=== PATIENT | male | born 1970 | race Caucasian/White ===

== ENCOUNTER 2017-10-26 10:40 | Emergency (ER) | payer MEDICARE, MEDICAID, SELFPAY ==
[2017-10-26 10:41] VITALS: BP 166/105; PULSE 79; RESP 18; TEMP 37.1; O2SAT 100; BMI 26.6
--- NOTE | 2017-10-26 10:53 | ED.VISSUMM ---
- ER Visit Summary Date of Service: 10/26/17 Chief Complaint: Abdominal pain History of Present Illness: The patient is a 47 M who presents with abdominal pain that began today. Patient states the pain is over the left side of his abdomen. Patient states the pain is sharp. Patient states the pain is worse with lying down and standing up. Patient states nothing seems to help the pain. Patient states he was eating today and spit up something green. Patient states he was eating Malay noodles at the time. Patient admits to some subjective chills. Patient denies any fevers. Patient also admits to a cough. Physical Examination: Vital signs are stable except for mildly elevated blood pressure 166/105. Patient is afebrile. Patient is in no acute distress. Oral mucosa is pink and moist. Neck is supple. Trachea is midline. There is no JVD. Heart was regular rate and rhythm. Lungs are clear and equal bilaterally. There is good respiratory effort noted. Abdomen is soft. There is some mild left upper quadrant tenderness. There is no rebound or guarding noted. Cranial nerves II through XII are intact. There are no focal motor or sensory deficits noted. The remaining physical exam is within normal limits. Test Results: CBC showed a mild leukocytosis of 13.6. Comprehensive metabolic profile was within normal limits. Urinalysis showed leukocyte esterase of 100 and positive nitrates. There is 0-5 white blood cells. Occult blood was 250 with 50-[address] scan of the flank was obtained. There is a 3 x 4 mm left proximal ureteral calculus noted. Emergency Department Course and Treatment: Patient was given IV fluids and Zofran here. Patient felt better on reevaluation. Patient was given a prescription for Bactrim. Patient was instructed to follow-up with his primary care physician in 3-5 days. Patient understood and was agreeable with the plan. All questions were answered. Disposition: Discharged home Impression: Left ureteral calculus This note was generated with [employer] dictation software. It may contain incorrect words, spelling, and punctuation that were not noted in review of the chart prior to signing ED Disposition - Plan for ED Patient: Disposition: Home or Assisted Living Chief Complaint: Other, Pain/Inj Diagnosis: Left ureteral calculus Instructions: ED Stone Renal W Colic, ED Strainer Urine Prescriptions: Smz/Tmp Ds [Bactrim Ds] 1 tab PO BID #6 tab Referrals: Bertin Feliz MD [Primary Care Provider] -
[2017-10-26 11:26] LABS: Bacteria 0 SEEN /hpf (None Seen); Mucous, Urine 0 SEEN /hpf (<or=2+); Squamous Epithelial Cells - UA 0 SEEN /hpf (0-5)
[2017-10-26] MEDS: 0.9% Normal Saline 1,000 ML 1000 ML IV (11:30)
[2017-10-26] MEDS: Ondansetron 4 MG/2 ML Vial IV (11:30)
[2017-10-26 11:31] LABS: Glucose, Dipstick Normal (Normal); Ketone-Dipstick 5 mg/dl (Negative); Leukocyte Esterase-Dipstick 100 /ul (Negative); Nitrite-Dipstick Positive (Negative); Occult Blood-Urine 250 /ul (Negative); Protein-Dipstick 100 mg/dl (Negative); Urine Clarity Sl. Cloudy (Clear); Urine Urobilinogen 4 mg/dl (Normal)
[2017-10-26 11:32] LABS: Color, Urine DARK YELLOW (Yellow); Urine Bilirubin Dipstick 1 mg/dL (Negative)
[2017-10-26 11:39] LABS: Calcium Oxalate Crystals Ur 1+ /hpf (<or=2+); Red Blood Cells-Urine 50-100 SEEN /hpf (0-5); White Blood Cells 0-5 SEEN /hpf (0-5)
[2017-10-26 11:49] LABS: Absolute Lymphocyte Count 0.84 X10^3/ul (0.83-4.51); Absolute Neutrophil Count 11.9 X10^3/uL (2.0-7.7); Basophil# 0.03 X10^3/uL; Basophil% 0.2 % (0-1); Eosinophil# 0.02 X10^3/uL; Eosinophils% 0.1 % (0-5); Hematocrit 47.5 % (40-54); Hemoglobin 16.7 g/dl (13.0-16.5); Lymphocyte # 0.84 X10^3/ul (4.0); Lymphocyte % 6.2 % (19-41); Mean Corp Hgb Conc 35.2 g/gl (32-36); Mean Corpuscular Hgb 31.9 pg (27.0-32.0); Mean Corpuscular Volume 90.8 fL (80-94); Monocyte% 5.9 % (0-10); Neutrophil # 11.87 X10^3/uL (2.7-7.7); Neutrophil % 87.5 % (47-70); POSITIVE COUNT NO; POSITIVE DIFFERENTIAL NO; POSITIVE MORPHOLOGY NO; Platelet Count 316 K/mm3 (150-450); RBC Distribution Width CV 12.9 % (11.6-14.6); RBC Distribution Width SD 42.6 fl (35.1-43.9); Red Blood Count 5.23 M/mm3 (4.6-6.2); White Blood Count 13.6 K/mm3 (4.4-11.0)
[2017-10-26 12:01] LABS: Anion Gap 11 (5-15); BUN 17 mg/dL (7-18); Calcium,Total 9.4 mg/dL (8.5-10.1); Chloride 103 mmol/L (98-107); Creatinine, Serum 1.21 mg/dL (0.70-1.30); EST Glomerular Filtration Rate 69 mL/min (>60); Est Glom Filt Rate - Afr Amer 83 mL/min (>60); Estimated Creatinine Clearance 62.05 ml/min; Glucose 107 mg/dL (74-106); Potassium 3.8 mmol/L (3.5-5.1); Sodium Level 136 mmol/L (136-145)
[2017-10-26 15:11] VITALS: BP 135/80; PULSE 78; RESP 16; O2SAT 100
== END 2017-10-26 15:12 | disposition home or self-care (01) ==
PROVIDERS: Emergency Provider Emergency Medicine; Family Provider Internal Medicine; PCP Internal Medicine
DX: N20.1 Calculus of ureter (principal); R03.0 Elevated blood-pressure reading, without diagnosis of hypertension; R05 Cough; F17.220 Nicotine dependence, chewing tobacco, uncomplicated; Z79.899 Other long term (current) drug therapy
CPT/HCPCS: 74176; 80048; 81001; 85025; 96361; 96374; 99283; J7030; J2405

== ENCOUNTER 2017-11-15 10:20 | Emergency (ER) | payer MEDICARE, MEDICAID, SELFPAY ==
[2017-11-15 10:21] VITALS: BP 154/95; PULSE 73; RESP 20; TEMP 36.6; O2SAT 99; BMI 26.7
--- NOTE | 2017-11-15 10:50 | ED.VISSUMM ---
- ER Visit Summary Date of Service: 11/15/17 Chief Complaint: Left flank pain History of Present Illness: The patient is a 47 M [place] 3 weeks ago was diagnosed a left ureteral calculi 4 mm. He has had prior kidney stones before. He states he has left flank discomfort. Denies vomiting. Denies diarrhea or fever. Is able to urinate. Denies any abdominal trauma. Physical Examination: Well-appearing middle-age male. Vital signs are stable. Afebrile. H EENT exam unremarkable. Moist wheeze membranes. Neck nontender. Lungs clear to auscultation bilaterally. Heart regular rhythm no murmur. Abdomen soft. Nondistended normal bowel sounds. No signs of obstruction. Really no significant tenderness on the right or left sides. No McBurney's point or Cortez's sign tenderness. No signs of trauma. Normal bowel sounds. He is moving all 4 extremities. Neurovascularly intact. Calves are nontender without edema. Back is nontender. Neurologically is awake alert moving all 4 extremities. No focal deficits. Test Results: UA normal. Small blood on the macro. Chemistries normal normal renal function. Previously the patient had a CT flank done 3 weeks ago it showed a left 4 mm stone. Emergency Department Course and Treatment: Patient currently did not want anything for pain or nausea. Repeat exam he is doing well 1403. Abdomen is benign. Treatment Plan: Discharge home. Follow-up with his primary care physician Dr. Bertin Feliz thank you Disposition: Discharge Impression: Acute left flank pain of uncertain etiology Status post recent diagnosis of a left 4 mm ureteral calculus This note was generated with Real [employer] dictation software. It may contain incorrect words, spelling, and punctuation that were not noted in review of the chart prior to signing ED Disposition - Plan for ED Patient: Chief Complaint: Abd Pain Referrals: Bertin Feliz MD [Primary Care Provider] -
[2017-11-15 11:50] LABS: Anion Gap 8 (5-15); BUN 15 mg/dL (7-18); BUN/Creat Ratio 17.5 RATIO (10-20); Calcium,Total 8.9 mg/dL (8.5-10.1); Chloride 104 mmol/L (98-107); Creatinine, Serum 0.86 mg/dL (0.70-1.30); EST Glomerular Filtration Rate 102 mL/min (>60); Est Glom Filt Rate - Afr Amer 124 mL/min (>60); Glucose 87 mg/dL (74-106); Potassium 3.8 mmol/L (3.5-5.1); Sodium Level 136 mmol/L (136-145)
[2017-11-15 12:03] LABS: Mucous, Urine 0 SEEN /hpf (<or=2+); Squamous Epithelial Cells - UA 0 SEEN /hpf (0-5); White Blood Cells 0 SEEN /hpf (0-5)
[2017-11-15 12:06] LABS: Color, Urine Yellow (Yellow); Glucose, Dipstick Normal (Normal); Ketone-Dipstick Negative (Negative); Leukocyte Esterase-Dipstick Negative /ul (Negative); Nitrite-Dipstick Negative (Negative); Occult Blood-Urine 250 /ul (Negative); Protein-Dipstick 15 mg/dl (Negative); Urine Bilirubin Dipstick Negative (Negative); Urine Clarity Sl. Cloudy (Clear); Urine Urobilinogen Normal (Normal); Urine pH 6.5 (5.0 - 8.0)
[2017-11-15 12:11] LABS: Bacteria 1+ /hpf (None Seen); Red Blood Cells-Urine 0-5 SEEN /hpf (0-5)
[2017-11-15 13:00] VITALS: PULSE 76; RESP 16; O2SAT 100
--- NOTE | 2017-11-15 14:06 | ED.DEP ---
ED Disposition - Plan for ED Patient: Disposition: Home or Assisted Living Chief Complaint: Abd Pain Instructions: ED Abdominal Pain Unkn Cause Referrals: Bertin Feliz MD [Primary Care Provider] - 3-5 Days if not improving Additional Instructions: Plenty of fluids and rest. Follow-up with your primary care physician if not improving. Return to ER if feeling worse.
[2017-11-15 14:13] VITALS: BP 148/93; PULSE 78; RESP 16; O2SAT 100
== END 2017-11-15 14:14 | disposition home or self-care (01) ==
PROVIDERS: Emergency Provider Emergency Medicine; Family Provider Internal Medicine; PCP Internal Medicine
DX: R10.9 Unspecified abdominal pain (principal); Z79.899 Other long term (current) drug therapy; Z87.442 Personal history of urinary calculi
CPT/HCPCS: 80048; 81001; 99283; A4216

== ENCOUNTER 2020-03-13 07:28 | Emergency (ER) | payer MEDICARE, MEDICAID, SELFPAY ==
--- NOTE | 2020-03-13 07:29 | CT_ITS ---
STUDY: CT ABDOMEN AND PELVIS WITH CONTRAST REASON FOR EXAM: Male, 49 years old. Right sided abdomen pain and diarrhea, elevated WBC. RADIATION DOSAGE (If Supplied By Facility): CTDIvol = ( 12.80 ) mGy, DLP = ( 650.57 ) mGycm TECHNIQUE: Transaxial images were obtained from the dome of the diaphragm to the symphysis pubis without oral contrast. IV 100mL Isovue-300 was administered. Sagittal and coronal images were reconstructed. Individualized dose optimization techniques were used for this CT. COMPARISON: Comparison is made with prior examination dated 10/26/2017 FINDINGS: The visualized lung bases are unremarkable. The visualized portions of the heart are within normal limits. There is decreased attenuation of the liver consistent with steatosis. Findings suggestive of either tiny gallstones or sludge along the dependent portion of the gallbladder. Normal spleen. Normal pancreas. Normal bilateral adrenal glands. Mild degree of right hydronephrosis and right hydroureter due to a 2 mm calculus at the right ureterovesical junction as it enters the urinary bladder. Stable 1 cm cyst in the midportion of the left. There is a small hiatal hernia. Normal small intestine. Mucosal thickening of the rectosigmoid colon. The appendix is visualized and appears normal. Normal abdominal aorta. Normal inferior vena cava. Normal retroperitoneum. Normal urinary bladder. There is a left-sided inguinal hernia containing adipose tissue. Small right hydrocele. Normal osseous structures. CT/Abdomen/Pelvis W IV Cont ONLY IMPRESSION: 2 mm calculus at the right ureterovesical junction as it enters the urinary bladder causing a mild degree of right hydronephrosis and right hydroureter. Stable left renal cyst. Fatty infiltration of the liver. Findings suggestive of mucosal thickening of the rectosigmoid colon. Electronically Signed: Sanjeev Cao MD at 8:37 EST , Service support ,
[2020-03-13 07:30] VITALS: BP 179/106; PULSE 85; RESP 20; TEMP 36.4; O2SAT 98; BMI 28.9
--- NOTE | 2020-03-13 07:33 | ED.VIS.GEN ---
History of Present Illness Chief Complaint: Abd Pain Informant: Patient Onset: Today Context: Gradual Onset Timing: Continuous Current Severity: Moderate Maximum Severity: Moderate Narrative: The patient is an otherwise healthy 49-year-old male medical history significant for anxiety and prior appendectomy who presents to the emergency department abdominal pain. Patient states he woke this morning with pain. He states it is mostly on the right lateral aspect of his abdomen. Has been nauseated with one episode of vomiting. He is also had multiple bouts of loose watery diarrhea. He is unsure if he has had cough. He denies fever but does admit to some chills. He denies any recent sick contacts or travel. He denies any urinary symptoms. Prior similar symptoms: No Recent Illness/Hospitalization: No Past Medical History - Allergies and Home Meds Allergies/Adverse Reactions: Allergies No Known Allergies Allergy (Verified 03/13/20 07:32) Primary Care Physician: Bertin Feliz MD [Primary Care Provider] - Prior records reviewed: Yes Past Medical History: - - Anxiety Surgical History: appendectomy Smoking Status: Never smoker Review of Systems General: Denies: Chills, Fever, Sweats Eyes: Denies: Visual changes - bilaterally, Diplopia ENT: Denies: Rhinorrhea, Sore throat Cardiovascular: Denies: Chest pain, Palpitations Respiratory: Denies: Dyspnea, Cough, Dyspnea on exertion Gastrointestinal: Reports: Abdominal pain, Nausea, Diarrhea. Denies: Vomiting, Melena, Hematochezia Genitourinary: Denies: Dysuria, Hematuria, Frequency Musculoskeletal: Denies: Back pain, Extremity Pain Skin: Denies: Rash, Wounds Neurological: Denies: Headache, Weakness, Numbness Physical Exam Vital Signs/Narrative: Vital Signs Temp Pulse Resp BP Pulse Ox 03/13/20 07:30 97.6 F L 85 20 H 179/106 H 98 Inital Vital Signs reviewed: Yes General: Well nourished, Well developed, No Acute Distress Head: Normocephalic, Atraumatic Eyes: Perrl, EOMI ENT: Moist mucous membranes, No rhinorrhea Neck: Supple, Nontender Cardiovascular: Regular rate, Regular rhythm, No murmurs Respiratory: No distress, CTA bilaterally, Chest nontender Abdomen: Soft, Nondistended, Normal bowel sounds, Tender. Negative for: Guarding, Rebound tenderness Back: Nontender, Normal Inspection Extremities: Nontender, No edema Skin: Normal color, No rash Neurological: Alert, Oriented x3, Cranial nerves II-XII grossly intact, Normal Strength, Normal Sensation Psychological: Normal affect, Normal Mood Diagnostic/Tx/Re-eval Clinical Impression(s) from Imaging Studies Abdomen/Pelvis CT 03/13/20 07:29 IMPRESSION: 2 mm calculus at the right ureterovesical junction as it enters the urinary bladder causing a mild degree of right hydronephrosis and right hydroureter. Stable left renal cyst. Fatty infiltration of the liver. Findings suggestive of mucosal thickening of the rectosigmoid colon. Electronically Signed: Sanjeev Cao MD at 8:37 EST , Service support , Abnormal Lab Results 03/13/20 03/13/20 07:36 07:36 WBC 16.3 H RBC 5.23 Hgb 16.0 Hct 46.1 MCV 88.1 MCH 30.6 MCHC 34.7 RDW Std Deviation 40.6 RDW Coeff of Inez 12.4 Plt Count 354 MPV 8.9 Immature Gran % (Auto) 0.600 Neut % (Auto) 84.9 H Lymph % (Auto) 8.6 L [place] % (Auto) 5.2 Eos % (Auto) 0.2 Baso % (Auto) 0.5 Absolute Neuts (auto) 13.9 H Absolute Lymphs (auto) 1.41 Nucleated RBC % 0 Sodium 138 Potassium 3.2 L Chloride 109 H Carbon Dioxide 21.0 Anion Gap 8 BUN 18 Creatinine 1.21 Estim Creat Clear Calc 60.74 Est GFR (MDRD) Af Amer 82 Est GFR (MDRD) Non-Af 68 BUN/Creatinine Ratio 14.9 Glucose 142 H Calcium 9.0 Total Bilirubin 0.60 AST 18 ALT 48 Alkaline Phosphatase 156 H Total Protein 8.3 H Albumin 4.2 Globulin 4.1 Albumin/Globulin Ratio 1.0 Lipase 128 - Medical Decision Making The patient presents with diarrhea and abdominal pain. It is hard to reproduce his pain on examination, but it is in the right side. He does have history of kidney stone also. IV was established. Patient was given analgesics and antiemetics. On reevaluation, he is resting comfortably. Screening labs do show leukocytosis but otherwise unremarkable. Patient underwent CT imaging. There is a 2 mm stone at the UVJ almost into the bladder. There is mild hydronephrosis. There is also some mucosal thickening of the rectosigmoid, and with the patient's diarrhea, I am going to treat him. He will be given a short course of analgesics, antiemetics, and antibiotics. He will also be given outpatient urology follow-up. Impression 1. 2 mm right-sided kidney stone 2. Colitis ED Disposition - Plan for ED Patient: Instructions: ED Kidney Stone w/ Colic, ED Diarrhea, Bacterial (Adult) Prescriptions: Ciprofloxacin [Cipro] 500 mg PO BID #14 tab Prescription Printed metroNIDAZOLE [Flagyl] 500 mg PO Q8H #21 tab Prescription Printed Hydrocodone Bitart/Apap 5-325 [[place] 5MG-325MG] 1 tab PO Q6H PRN PRN 3 Days #10 tab PRN Reason: Pain Prescription Printed Ondansetron [Zofran Odt] 4 mg PO Q8H PRN PRN #10 tab PRN Reason: Nausea Prescription Printed Referrals: Bertin Feliz MD [Primary Care Provider] -
[2020-03-13] MEDS: 0.9% Normal Saline 1,000 ML 1000 ML IV (07:44)
[2020-03-13] MEDS: Ondansetron 4 MG/2 ML Vial IV (07:45)
[2020-03-13] MEDS: Morphine 4 MG/ML Syringe IV (07:46)
[2020-03-13 07:50] LABS: Absolute Lymphocyte Count 1.41 X10^3/uL (0.83-4.51); Absolute Neutrophil Count 13.9 X10^3/uL (2.0-7.7); Basophil# 0.08 X10^3/uL; Basophil% 0.5 % (0-1); Eosinophil# 0.04 X10^3/uL; Eosinophils% 0.2 % (0-5); Hematocrit 46.1 % (40-54); Lymphocyte # 1.41 X10^3/ul (4.0); Lymphocyte % 8.6 % (19-41); Mean Corp Hgb Conc 34.7 g/dL (32-36); Mean Corpuscular Hgb 30.6 pg (27.0-32.0); Mean Corpuscular Volume 88.1 fL (80-94); Mean Platelet Vol. 8.9 fl (6.2-12.0); Monocyte# 0.85 X10^3/uL; Monocyte% 5.2 % (0-10); NRBC Flagged by Analyzer 0 % (0-5); Neutrophil # 13.87 X10^3/uL (2.7-7.7); Neutrophil % 84.9 % (47-70); Platelet Count 354 K/mm3 (150-450); RBC Distribution Width CV 12.4 % (11.6-14.6); RBC Distribution Width SD 40.6 fl (35.1-43.9); Red Blood Count 5.23 M/mm3 (4.6-6.2); White Blood Count 16.3 K/mm3 (4.4-11.0)
[2020-03-13 08:05] LABS: AST(SGOT) 18 U/L (15-37); Alanine Aminotransfer ALT/SGPT 48 U/L (16-61); Albumin, Serum 4.2 g/dL (3.2-5.0); Alkaline Phosphatase 156 U/L (45-117); Anion Gap 8 (5-15); BUN 18 mg/dL (7-18); BUN/Creat Ratio 14.9 RATIO (10-20); Chloride 109 mmol/L (98-107); Creatinine, Serum 1.21 mg/dL (0.70-1.30); EST Glomerular Filtration Rate 68 mL/min (>60); Est Glom Filt Rate - Afr Amer 82 mL/min (>60); Estimated Creatinine Clearance 60.74 ml/min; Globulin 4.1 g/dL (2.2-4.2); Glucose 142 mg/dL (74-106); Lipase 128 U/L (73-393); Potassium 3.2 mmol/L (3.5-5.1); Protein, Total 8.3 g/dL (6.4-8.2); Sodium Level 138 mmol/L (136-145)
[2020-03-13 09:03] VITALS: BP 184/90; PULSE 84; RESP 20; O2SAT 97
[2020-03-13 09:05] LABS: Color, Urine Straw (Yellow); Glucose, Dipstick Normal (Normal); Ketone-Dipstick Negative (Negative); Leukocyte Esterase-Dipstick 25 /ul (Negative); Nitrite-Dipstick Negative (Negative); Occult Blood-Urine 250 /ul (Negative); Protein-Dipstick Negative (Negative); Specific Gravity, Urine 1.005 (1.002-1.030); Urine Bilirubin Dipstick Negative (Negative); Urine Clarity Sl. Cloudy (Clear); Urine Urobilinogen Normal (Normal)
[2020-03-13 09:11] LABS: Red Blood Cells-Urine 25-50 SEEN /hpf (0-5); Squamous Epithelial Cells - UA 0-5 SEEN /hpf (0-5); White Blood Cells 0-5 SEEN /hpf (0-5)
[2020-03-13 09:12] LABS: Bacteria 1+ /hpf (None Seen); Mucous, Urine RARE /hpf (<or=2+)
== END 2020-03-13 09:37 | disposition home or self-care (01) ==
PROVIDERS: Emergency Provider Emergency Medicine; PCP Internal Medicine
DX: N13.2 Hydronephrosis with renal and ureteral calculous obstruction (principal); K52.9 Noninfective gastroenteritis and colitis, unspecified; F41.9 Anxiety disorder, unspecified; Z79.899 Other long term (current) drug therapy
CPT/HCPCS: 74177; 80053; 81001; 83690; 85025; 96361; 96374; 96375; 99285; J7030; Q9967; A4216; J2405

== ENCOUNTER 2021-09-22 07:51 | Inpatient (IN) | payer MEDICARE, MEDICAID, SELFPAY ==
[2021-09-22] VITALS (12 sets, daily range): BP systolic 116–165; BP diastolic 87–99; PULSE 71–99; RESP 15–25; TEMP 36.3–36.9; O2SAT 96–100; BMI 28.9; BMI 28.3
--- NOTE | 2021-09-22 07:58 | NURSING ---
NO OLD EKGS
--- NOTE | 2021-09-22 07:59 | EDS_ITS ---
HPI History of Present Illness Chief Complaint: Chest Pain Narrative Narrative: 51-year-old male presenting with chest pain which has been constant for 3 hours. He describes it as sharp and stabbing. He is not having any shortness of breath. He denies any cardiac history. He is a non-smoker. He does not know his family history. Patient has no DVT/PE risk factors or history. No fever, chills, cough. He rates his pain as 9 of 10. [facility] Medical History Anxiety Hyperlipemia Home Medications atorvastatin 10 mg tablet 10 mg PO QHS 10/11/14 [History Last Taken Unknown] cetirizine 10 mg capsule (Zyrtec) 10 mg PO DAILY 10/11/14 [History Last Taken Unknown] mometasone 50 mcg/actuation nasal spray (Nasonex) 1 spray DAILY 10/11/14 [History Last Taken Unknown] multivitamin,ht-vtjp-obzoanjk 27 mg-0.4 mg tablet (Therems-M) 1 tab PO DAILY 10/11/14 [History Last Taken Unknown] azelastine 137 mcg (0.1 %) nasal spray aerosol 2 spray BID 11/15/17 [History Last Taken Unknown] omeprazole 20 mg capsule,delayed release 20 mg PO DAILY 11/15/17 [History Last Taken Unknown] sertraline 100 mg tablet 100 mg PO DAILY 09/22/21 [History Last Taken Unknown] Allergy/AdvReac Type Severity Reaction Status Date / Time No Known Allergies Allergy Verified 09/22/21 07:58 Social History Smoking Status: Current every day smoker tobacco type: smokeless tobacco ROS ROS ED Constitutional Constitutional ED: Denies chills or fever(s) Eyes Eyes: Denies blurry vision or change in vision ENT ENT ED: Denies rhinorrhea or sore throat Cardiovascular Cardiovascular: Reports as per HPI Respiratory/Chest Respiratory/Chest: Denies cough, dyspnea or dyspnea on exertion Gastrointestinal Gastrointestinal: Denies abdominal pain, constipation, diarrhea, melena, nausea or vomiting Genitourinary Genitourinary ED: Denies dysuria Musculoskeletal Musculoskeletal: Denies arthralgias or back pain Integumentary Denies abscess or Abrasions Neurologic Neurologic: Denies headache(s) or paresthesias Psychiatric Psychiatric: Reports anxiety; Denies depression EXAM Physical Exam Const Vital Signs: 09/22/21 07:53 09/22/21 07:59 09/22/21 08:08 Temperature 97.4 F L Temperature Source Temporal Pulse Rate 75 Respiratory Rate 15 Respiratory Effort Normal Blood Pressure 151/96 H Blood Pressure Mean 114 Pulse Ox 96 Oxygen Delivery Method Room Air Room Air 09/22/21 09:04 09/22/21 10:08 09/22/21 11:16 Temperature Temperature Source Pulse Rate 74 99 82 Respiratory Rate 24 H 25 H 17 Respiratory Effort Blood Pressure 165/95 H 163/97 H 131/99 H Blood Pressure Mean 118 119 109 Pulse Ox 100 99 98 Oxygen Delivery Method Room Air Room Air Room Air Positive well nourished General Appearance ED: NAD; Negative for pallor HEENT Reports moist mucous membranes normocephalic and atraumatic Eyes PERRL and EOMs intact bilaterally General Eye ED: Negative for pale conjunctiva or scleral icterus Resp normal respiratory effort and clear to auscultation bilaterally Effort and Inspection: Negative for respiratory distress Auscultation: Negative for rales, rhonchi or wheezes Cardio regular rate and regular rhythm GI normal to inspection, nondistended, normoactive bowel sounds Extremity normal to inspection General Extremety ED: Negative for edema or tenderness General Extremity: Negative for edema Neuro oriented x3, CN's II-XII intact bilaterally and no sensory deficits noted Sensorium / Orientation: awake and alert Motor Exam: strength 5/5 throughout Psych mental status grossly normal Mood & Affect: anxious Skin no rashes or lesions noted General Skin Exam: Negative for jaundice or pallor Heart Score History: Slightly/Non-Suspicious ECG: Normal Age: >45 - <65 years Risk Factors: 1 or 2 Risk Factors Score: 2 MDM MDM MDM Narrative Medical decision making narrative: 51-year-old male presenting with sharp retrosternal chest pain which is nonradiating for the last 3 hours. He is not having shortness of breath. He does not have a cardiac history. HEART score would be 2 at this point. He is a non-smoker. Although he rates his pain a 9/10 he declines analgesia. His vital signs are stable and he is afebrile. He is PERC negative. After discussion the patient reports that his cat did last night and he is anxious and sad. Patient's blood pressure was initially elevated 151/96. This is improved to 131/99 without any treatment. EKG on my interpretation shows a sinus rhythm with a ventricular rate of 75 bpm without sign of acute ischemic change. Chest x-ray on my interpretation shows no acute cardiopulmonary process and radiologist agree. Patient is PERC negative. Patient's high-sensitivity troponin came back initially at 10 and at 2 hours this was elevated at 185. Patient already received 324 mg of aspirin prior to arrival. Patient was discussed with the hospitalist for admission. He is transferred to the floor in stable condition. Impression: 1. Chest pain 2. Elevated Troponin 3. History of hyperlipidemia 4. Elevated blood pressure 5. Anxiety Lab Data Attestation: I reviewed the patient's lab results. Labs: Laboratory Results - last 24 hr 09/22/21 09/22/21 09/22/21 07:44 07:44 08:41 WBC 9.4 RBC 5.31 Hgb 16.4 Hct 49.2 MCV 92.7 MCH 30.9 MCHC 33.3 RDW Std Deviation 43.7 RDW Coeff of Inez 12.8 Plt Count 364 MPV 9.4 Immature Gran % (Auto) 0.300 Neut % (Auto) 48.4 Lymph % (Auto) 38.0 [place] % (Auto) 10.8 H Eos % (Auto) 1.4 Baso % (Auto) 1.1 H Absolute Neuts (auto) 4.5 Absolute Lymphs (auto) 3.56 Nucleated RBC % 0 Sodium Cancelled 137 Potassium Cancelled 4.1 Chloride Cancelled 107 Carbon Dioxide Cancelled 23.0 Anion Gap Cancelled 7 BUN Cancelled 18 Creatinine Cancelled 1.01 Estim Creat Clear Calc Cancelled 71.20 Est GFR (MDRD) Af Amer Cancelled 101 Est GFR (MDRD) Non-Af Cancelled 83 BUN/Creatinine Ratio Cancelled 17.8 Glucose Cancelled 128 H Calcium Cancelled 9.3 Troponin I High Sens Cancelled 09/22/21 11:15 WBC RBC Hgb Hct MCV MCH MCHC RDW Std Deviation RDW Coeff of Inez Plt Count MPV Immature Gran % (Auto) Neut % (Auto) Lymph % (Auto) [place] % (Auto) Eos % (Auto) Baso % (Auto) Absolute Neuts (auto) Absolute Lymphs (auto) Nucleated RBC % Sodium Potassium Chloride Carbon Dioxide Anion Gap BUN Creatinine Estim Creat Clear Calc Est GFR (MDRD) Af Amer Est GFR (MDRD) Non-Af BUN/Creatinine Ratio Glucose Calcium Troponin I High Sens 185 H* Radiography Diagnostic Testing: Clinical Impression(s) from Imaging Studies Chest X-Ray 09/22/21 08:25 IMPRESSION: Normal chest radiograph. Electronically Signed: Dominic Stanley MD at 8:40 EDT , Discharge Plan Triage Chief Complaint: Chest Pain ED Provider: Cipriano Castro Dx/Rx/DC Orders Primary Care Provider: Bertin Feliz
--- NOTE | 2021-09-22 08:03 | EKG12_ITS ---
Test Reason : CP Blood Pressure : / mmHG Vent. Rate : 075 BPM Atrial Rate : 075 BPM P-R Int : 176 ms QRS Dur : 082 ms QT Int : 390 ms P-R-T Axes : -07 -79 036 degrees QTc Int : 435 ms Normal sinus rhythm Left anterior fascicular block Inferior infarct , age undetermined Abnormal ECG Confirmed by NISREEN URIBE, APRIL ([id number]), newspaper copy editor ALEXA BUTLER ([id number]) on 09/24/2021 1:05:11 PM Referred By: YESSY Confirmed By:APRIL NIELSON MD
[2021-09-22 08:17] LABS: Absolute Lymphocyte Count 3.56 X10^3/uL (0.83-4.51); Absolute Neutrophil Count 4.5 X10^3/uL (2.0-7.7); Basophil% 1.1 % (0-1); Eosinophil# 0.13 X10^3/uL; Eosinophils% 1.4 % (0-5); Hematocrit 49.2 % (40-54); Hemoglobin 16.4 g/dL (13.0-16.5); Lymphocyte # 3.56 X10^3/ul (0.83-4.51); Mean Corp Hgb Conc 33.3 g/dL (32-36); Mean Corpuscular Hgb 30.9 pg (27.0-32.0); Mean Corpuscular Volume 92.7 fL (80-94); Mean Platelet Vol. 9.4 fl (6.2-12.0); Monocyte# 1.01 X10^3/uL; Monocyte% 10.8 % (0-10); NRBC Flagged by Analyzer 0 % (0-5); Neutrophil # 4.53 X10^3/uL (2.7-7.7); Neutrophil % 48.4 % (47-70); Platelet Count 364 K/mm3 (150-450); RBC Distribution Width CV 12.8 % (11.6-14.6); RBC Distribution Width SD 43.7 fl (35.1-43.9); Red Blood Count 5.31 M/mm3 (4.6-6.2); White Blood Count 9.4 K/mm3 (4.4-11.0)
[2021-09-22] MEDS: Morphine 4 MG/ML Syringe IV (08:17)
[2021-09-22] MEDS: Ondansetron 4 MG/2 ML Vial IV (08:18)
--- NOTE | 2021-09-22 08:25 | RAD_ITS ---
EXAM: XR CHEST, 1 VIEW CLINICAL INDICATION: chest pain TECHNIQUE: Frontal view of the chest. This report was created using [employer] report generation technology. COMPARISON: None. FINDINGS: LUNGS AND PLEURAL SPACES: The lungs are clear. No consolidation or edema. No pneumothorax. No effusion. HEART: Unremarkable. Cardiac silhouette not enlarged. MEDIASTINUM: Central airways and mediastinal contour are unremarkable. BONES/JOINTS: Unremarkable. SOFT TISSUES: Unremarkable. RAD/Chest 1 View (Portable) IMPRESSION: Normal chest radiograph. Electronically Signed: Dominic Stanley MD at 8:40 EDT ,
--- NOTE | 2021-09-22 08:26 | NURSING ---
chemistries hemolized
[2021-09-22 09:16] LABS: Anion Gap 7 (5-15); BUN 18 mg/dL (7-18); BUN/Creat Ratio 17.8 RATIO (10-20); Calcium,Total 9.3 mg/dL (8.5-10.1); Chloride 107 mmol/L (98-107); Creatinine, Serum 1.01 mg/dL (0.70-1.30); EST Glomerular Filtration Rate 83 mL/min (>60); Est Glom Filt Rate - Afr Amer 101 mL/min (>60); Glucose 128 mg/dL (74-106); Potassium 4.1 mmol/L (3.5-5.1); Sodium Level 137 mmol/L (136-145); Troponin-I HS (w/2H Reflex) 10 pg/mL (3.0-78.0)
[2021-09-22 10:42] LABS: Reflex Troponin-HS? (from REC) Y
--- NOTE | 2021-09-22 11:31 | NURSING ---
[place] contacted per pt request. She advised his cat yesterday and he has extreme anxiety. She advised she will pick him up when he is ready. Contact number [phone].
[2021-09-22 11:56] LABS: Troponin-I HS 185 pg/mL (3.0-78.0)
--- NOTE | 2021-09-22 12:01 | NURSING ---
DR SOLIMAN FOR DR VALENZUELA
--- NOTE | 2021-09-22 12:03 | PCM.HP.STD ---
[facility] - General General Date of Admission: 09/22/21 Date of Service: 09/22/21 Chief Complaint: Sudden onset of chest pain about 5 AM lasted for about 3 hours. HPI Narrative CATHERINE SCHWARTZ, is a 51 M with history of severe anxiety disorder came to ED with sudden onset of chest pain about 5 AM today. It is constant in nature, midsternal, localized, 10/10 at onset but decreased over next 3 hours. Chest pain resolved when patient came to ED and was given medication. Patient said he has severe anxiety attack as his pet, cat yesterday. Patient also has mild shivering and tremors of hand. Denies associated shortness of breath, dizziness, vertigo, nausea, diaphoresis or vomiting. No fever or chills, URI or abdominal pain or burning micturition/dysuria. In ED, twelve-lead EKG individually reviewed normal sinus rhythm LAFB, T #V1 to V2 at 75 bpm. QTc 435 ms. Chest x-ray done today reviewed and looks normal and gave me the report. Labs reviewed. Denies family history of coronary artery disease or other cardiac disorder in first-degree family relatives. [facility] Medical History Anxiety Hyperlipemia Home Medications atorvastatin 10 mg tablet 10 mg PO QHS 10/11/14 [History Last Taken Unknown] cetirizine 10 mg capsule (Zyrtec) 10 mg PO DAILY 10/11/14 [History Last Taken Unknown] mometasone 50 mcg/actuation nasal spray (Nasonex) 1 spray DAILY 10/11/14 [History Last Taken Unknown] multivitamin,xg-xari-bscytupp 27 mg-0.4 mg tablet (Therems-M) 1 tab PO DAILY 10/11/14 [History Last Taken Unknown] azelastine 137 mcg (0.1 %) nasal spray aerosol 2 spray BID 11/15/17 [History Last Taken Unknown] omeprazole 20 mg capsule,delayed release 20 mg PO DAILY 11/15/17 [History Last Taken Unknown] sertraline 100 mg tablet 100 mg PO DAILY 09/22/21 [History Last Taken Unknown] Allergy/AdvReac Type Severity Reaction Status Date / Time No Known Allergies Allergy Verified 09/22/21 07:58 Social History Smoking Status: Current every day smoker tobacco type: smokeless tobacco ROS ROS Narrative Constitutional: Mild shaking and tremors. Looks anxious. No fever HEENT: Reports systems reviewed and no addt'l complaints, except as documented Respiratory/Chest: No shortness of breath. Rest as described in HPI Gastrointestinal: Denies coffee ground emesis, hematemesis or vomiting. No GI bleed Genitourinary: Denies burning urination or new urinary tract symptoms Musculoskeletal: No joint pain and limited range of motion Neurologic: Denies seizure-like activity. No focal weakness or neurological symptoms skin: No ulcer. No rash Endocrinology: Reports systems reviewed and no addt'l complaints, except as documented Hematologic/Lymphatic: Reports systems reviewed and no addt'l complaints, except as documented Psychiatric: Severe anxiety disorder. Rest 14 ROS are negative except as mentioned in HPI Vital Signs Vital Signs Vital Signs: 09/22/21 07:53 09/22/21 07:59 09/22/21 08:08 Temperature 97.4 F L Temperature Source Temporal Pulse Rate 75 Respiratory Rate 15 Respiratory Effort Normal Blood Pressure 151/96 H Blood Pressure Mean 114 Pulse Ox 96 Oxygen Delivery Method Room Air Room Air 09/22/21 09:04 09/22/21 10:08 09/22/21 11:16 Temperature Temperature Source Pulse Rate 74 99 82 Respiratory Rate 24 H 25 H 17 Respiratory Effort Blood Pressure 165/95 H 163/97 H 131/99 H Blood Pressure Mean 118 119 109 Pulse Ox 100 99 98 Oxygen Delivery Method Room Air Room Air Room Air Weight Weight: 163 lb 5.8 oz Body Mass Index (BMI) 28.9 Physical Exam Narrative General: Alert, Oriented x3, Cooperative HEENT: Atraumatic, PERRLA, EOMI, Normocephalic Oral: No Gingival or Mucosal Lesions/ Ulcerations Neck: Supple, No JVD, Negative Carotid Bruits Lungs: Air entry equal in bilateral lung bases. No crepitation/rhonchi Cardiovascular: Regular rate, Regular Rhythm, Normal S1, Normal S2, No murmurs Abdomen: Bowel Sounds Present, Soft, Non Tender, Non-Distended : No renal angle tenderness. No suprapubic tenderness. Extremities: No edema, Capillary Refill Less than 3 Seconds Skin: No rashes, No breakdown Musculoskeletal: No Tenderness to Palpation of Joints or Extremities Neurological: Cranial nerves II-XII grossly intact, DTR 2+/4 and Symmetrical, Neuro grossly intact Psych/Mental Status: Anxious look. Mild shivering Results Lab / Micro Data Result Diagrams: 09/22/21 07:44 09/22/21 08:41 Labs: Laboratory Results - last 24 hr 09/22/21 07:44: WBC 9.4, RBC 5.31, Hgb 16.4, Hct 49.2, MCV 92.7, MCH 30.9, MCHC 33.3, RDW Std Deviation 43.7, RDW Coeff of Inez 12.8, Plt Count 364, MPV 9.4, Immature Gran % (Auto) 0.300, Neut % (Auto) 48.4, Lymph % (Auto) 38.0, Arroyo % (Auto) 10.8 H, Eos % (Auto) 1.4, Baso % (Auto) 1.1 H, Absolute Neuts (auto) 4.5, Absolute Lymphs (auto) 3.56, Nucleated RBC % 0 09/22/21 08:41: Sodium 137, Potassium 4.1, Chloride 107, Carbon Dioxide 23.0, Anion Gap 7, BUN 18, Creatinine 1.01, Estim Creat Clear Calc 71.20, Est GFR (MDRD) Af Amer 101, Est GFR (MDRD) Non-Af 83, BUN/Creatinine Ratio 17.8, Glucose 128 H, Calcium 9.3, Troponin I High Sens 10 09/22/21 11:15: Troponin I High Sens 185 H* Radiology Impression Chest X-Ray 09/22/21 08:25 IMPRESSION: Normal chest radiograph. Electronically Signed: Dominic Stanley MD at 8:40 EDT , Assessment & Plan Assessment/Plan (1) Chest pain, atypical: PLAN: This is 51-year-old question gentleman admitted with midsternal chest pain associated with anxiety in PCU. 1. Atypical chest pain: Patient is being admitted on monitored bed. First troponin negative. Second troponin is elevated, 185. OSCAR risk 1 because of elevated hs- troponin. Serum magnesium ordered. Follow-up third troponin after 6 hours. If third troponin normal will do stress test otherwise we will call cardiology consult for further opinion. 2. Smokeless tobacco, chew tobacco: Advised quitting smoking. 3. Dyslipidemia: On atorvastatin. Fasting lipid profile tomorrow AM. 4. GERD, allergic rhinitis: Patient on Nasonex, cetirizine and omeprazole at home. Home medication reconciliation done. 5. Severe anxiety disorder with panic attack: Started on buspirone 10 mg p.o. 3 times daily. Patient on sertraline continued. If patient gets further panic attack/anxiety will add alprazolam. DVT prophylaxis: Moderate risk: Heparin 5000 instantaneous twice daily Full code. Laboratory Results 09/22/21 07:44: WBC 9.4, RBC 5.31, Hgb 16.4, Hct 49.2, MCV 92.7, MCH 30.9, MCHC 33.3, RDW Std Deviation 43.7, RDW Coeff of Inez 12.8, Plt Count 364, MPV 9.4, Immature Gran % (Auto) 0.300, Neut % (Auto) 48.4, Lymph % (Auto) 38.0, Arroyo % (Auto) 10.8 H, Eos % (Auto) 1.4, Baso % (Auto) 1.1 H, Absolute Neuts (auto) 4.5, Absolute Lymphs (auto) 3.56, Nucleated RBC % 0 09/22/21 08:41: Sodium 137, Potassium 4.1, Chloride 107, Carbon Dioxide 23.0, Anion Gap 7, BUN 18, Creatinine 1.01, Estim Creat Clear Calc 71.20, Est GFR (MDRD) Af Amer 101, Est GFR (MDRD) Non-Af 83, BUN/Creatinine Ratio 17.8, Glucose 128 H, Calcium 9.3, Troponin I High Sens 10 09/22/21 11:15: Troponin I High Sens 185 H* 09/22/21 11:15: Magnesium Pending Charges/Coding Visit Charges OBSV E&M: 74638 Initial observation care L3
--- NOTE | 2021-09-22 12:44 | NURSING ---
PCU OBS JOURDAN CHEST PAIN
[2021-09-22 12:48] LABS: Magnesium 2.2 mg/dL (1.6-2.6)
[2021-09-22] MEDS: Lactated Ringers 1,000 ML 100 ML IV (13:37)
[2021-09-22] MEDS: Aspirin E.C. 81 MG Tablet PO (15:03)
[2021-09-22] MEDS: busPIRone 5 MG Tablet 10 MG PO ×2 (15:03→22:20)
[2021-09-22 15:23] LABS: Troponin-I HS 1469 pg/mL (3.0-78.0)
--- NOTE | 2021-09-22 15:30 | EKG12_ITS ---
Test Reason : Blood Pressure : / mmHG Vent. Rate : 077 BPM Atrial Rate : 077 BPM P-R Int : 186 ms QRS Dur : 078 ms QT Int : 374 ms P-R-T Axes : -09 007 024 degrees QTc Int : 423 ms Normal sinus rhythm Possible Inferior infarct , age undetermined Abnormal ECG Confirmed by NISREEN URIBE, APRIL ([id number]), sports editor ALEXA BUTLER ([id number]) on 09/24/2021 10:12:23 AM Referred By: JOURDAN Confirmed By:APRIL NIELSON MD
[2021-09-22] MEDS: Pantoprazole Sodium 40 MG Tablet PO (16:05)
[2021-09-22] MEDS: Metoprolol(XL)Succ 25 MG Tablet PO (16:05)
[2021-09-22] MEDS: TICAGRELOR 90 MG TABLET 180 MG PO (16:06)
--- NOTE | 2021-09-22 16:27 | PCM.CONS.C ---
Assessment & Plan Assessment/Plan (1) Non-STEMI (non-ST elevated myocardial infarction): PLAN: We will proceed with coronary angiography. Will be reasonable to keep the patient on aspirin, Brilinta, statin, IV heparin and beta-rogelio. If coronary angiogram does not show any significant stenoses then CTA of the chest could be considered to rule out PE. Please check a 2D echo as well to evaluate LV function and to look for valvular abnormalities. HPI Consult Data Date of Consult: 09/22/21 HPI Narrative Reason for Consultation: Non-STEMI HPI Narrative: CATHERINE SCHWARTZ, is a 51 M who presents with chest pain that lasted about 3 hours this morning. It was retrosternal, sharp with no specific aggravating or relieving factors. Patient's troponin increased to around 1400. Review of systems: All systems reviewed. All else is negative except that in HPI [facility] Medical History Anxiety Hyperlipemia Home Medications atorvastatin 10 mg tablet 10 mg PO QHS 10/11/14 [History Last Taken Unknown] cetirizine 10 mg capsule (Zyrtec) 10 mg PO DAILY 10/11/14 [History Last Taken Unknown] mometasone 50 mcg/actuation nasal spray (Nasonex) 1 spray DAILY 10/11/14 [History Last Taken Unknown] multivitamin,ya-ppjc-fnzbbdeh 27 mg-0.4 mg tablet (Therems-M) 1 tab PO DAILY 10/11/14 [History Last Taken Unknown] azelastine 137 mcg (0.1 %) nasal spray aerosol 2 spray BID 11/15/17 [History Last Taken Unknown] omeprazole 20 mg capsule,delayed release 20 mg PO DAILY 11/15/17 [History Last Taken Unknown] sertraline 100 mg tablet 100 mg PO DAILY 09/22/21 [History Last Taken Unknown] Allergy/AdvReac Type Severity Reaction Status Date / Time No Known Allergies Allergy Verified 09/22/21 07:58 Social History Smoking Status: Current every day smoker tobacco type: smokeless tobacco Physical Exam Const alert and oriented x3 HEENT normocephalic Eyes no scleral icterus Resp clear to auscultation bilaterally Cardio regular rate and regular rhythm Extremity no pedal edema Skin no rashes or lesions noted Psych mental status grossly normal Risk Stratification Risk Stratification Applicable: No Charges/Coding Visit Charges Inpatient E&M: 23465 Init Hosp L3 Objective Data Vital Signs: Vital Signs Temp Pulse Resp BP Pulse Ox O2 Del Method 98.4 F 74 17 116/88 H 96 Room Air 09/22/21 12:30 09/22/21 16:05 09/22/21 12:30 09/22/21 16:05 09/22/21 13:30 09/22/21 13:30 Oxygen Delivery Method Room Air Weight: 160 lb Body Mass Index (BMI) 28.3 Lab / Micro Data Result Diagrams: 09/22/21 07:44 09/22/21 08:41 Labs: Laboratory Results - last 24 hr 09/22/21 07:44: WBC 9.4, RBC 5.31, Hgb 16.4, Hct 49.2, MCV 92.7, MCH 30.9, MCHC 33.3, RDW Std Deviation 43.7, RDW Coeff of Inez 12.8, Plt Count 364, MPV 9.4, Immature Gran % (Auto) 0.300, Neut % (Auto) 48.4, Lymph % (Auto) 38.0, Bennett % (Auto) 10.8 H, Eos % (Auto) 1.4, Baso % (Auto) 1.1 H, Absolute Neuts (auto) 4.5, Absolute Lymphs (auto) 3.56, Nucleated RBC % 0 09/22/21 07:44: Sodium Cancelled, Potassium Cancelled, Chloride Cancelled, Carbon Dioxide Cancelled, Anion Gap Cancelled, BUN Cancelled, Creatinine Cancelled, Estim Creat Clear Calc Cancelled, Est GFR (MDRD) Af Amer Cancelled, Est GFR (MDRD) Non-Af Cancelled, BUN/Creatinine Ratio Cancelled, Glucose Cancelled, Calcium Cancelled, Troponin I High Sens Cancelled 09/22/21 08:41: Sodium 137, Potassium 4.1, Chloride 107, Carbon Dioxide 23.0, Anion Gap 7, BUN 18, Creatinine 1.01, Estim Creat Clear Calc 71.20, Est GFR (MDRD) Af Amer 101, Est GFR (MDRD) Non-Af 83, BUN/Creatinine Ratio 17.8, Glucose 128 H, Calcium 9.3, Troponin I High Sens 10 09/22/21 11:15: Troponin I High Sens 185 H* 09/22/21 11:15: Magnesium 2.2 09/22/21 14:47: Troponin I High Sens 1469 H* Cardiology Labs/Tests 09/22/21 07:44: WBC 9.4, RBC 5.31, Hgb 16.4, Hct 49.2, MCV 92.7, MCH 30.9, MCHC 33.3, Plt Count 364, MPV 9.4, Immature Gran % (Auto) 0.300, Neut % (Auto) 48.4, Lymph % (Auto) 38.0, Bennett % (Auto) 10.8 H, Eos % (Auto) 1.4, Baso % (Auto) 1.1 H, Absolute Neuts (auto) 4.5, Nucleated RBC % 0 09/22/21 07:44: Sodium Cancelled, Potassium Cancelled, Chloride Cancelled, Carbon Dioxide Cancelled, Anion Gap Cancelled, BUN Cancelled, Creatinine Cancelled, Est GFR (MDRD) Af Amer Cancelled, Est GFR (MDRD) Non-Af Cancelled, BUN/Creatinine Ratio Cancelled, Glucose Cancelled, Calcium Cancelled 09/22/21 08:41: Sodium 137, Potassium 4.1, Chloride 107, Carbon Dioxide 23.0, Anion Gap 7, BUN 18, Creatinine 1.01, Est GFR (MDRD) Af Amer 101, Est GFR (MDRD) Non-Af 83, BUN/Creatinine Ratio 17.8, Glucose 128 H, Calcium 9.3 09/22/21 11:15: Magnesium 2.2 Rhythm: EKG: ECHO: Stress Test: Cardiac Cath: PCI: CT Surgery: Holter monitor: EPS: PPM: CXR: Chest CT Scan: Radiography Diagnostic Testing: Radiology Impression Chest X-Ray 09/22/21 08:25 IMPRESSION: Normal chest radiograph. Electronically Signed: Dominic Stanley MD at 8:40 EDT ,
--- NOTE | 2021-09-22 16:30 | ECHOD_ITS ---
Reason For Study: CHEST PAIN Procedure This was a 2D Doppler, Color Flow transthoracic echocardiogram. The study was technically difficult. Pt denied bubble and definity. Exam performed portable in patient room. Left Ventricle Normal LV size. Left ventricular systolic function is normal. The estimated ejection fraction is 60 %. Normal diastology for age. No regional wall motion abnormalities noted. Right Ventricle Normal RV size. Normal systolic function. Atria Normal left atrium. Normal right atrium. Mitral Valve Normal mitral valve. Mild (1+) mitral valve insufficiency. Tricuspid Valve Normal tricuspid valve. Aortic Valve Normal aortic valve. Trisinus/trileaflet aortic valve. Pulmonic Valve Normal pulmonic valve. Great Vessels Normal aortic root. The pulmonary artery is normal size. Normal inferior vena cava. Pericardium/Pleural No pericardial effusion. MMode/2D Measurements & Calculations LVIDd: 3.6 cm IVSd: 0.88 cm Ao root diam: 2.9 cm LVIDs: 2.4 cm LVPWd: 0.98 cm RVDd: 3.5 cm FS: 32.4 % LAV(MOD-sp4): 37.4 ml LVAd ap4: 26.2 cm2 LVAs ap2: 11.3 cm2 LVLd ap4: 8.4 cm LVLs ap2: 6.5 cm EDV(MOD-sp4): 66.0 ml ESV(MOD-sp2): 17.4 ml EDV(sp4-el): 69.5 ml ESV(sp2-el): 16.6 ml LA dimension(2D): 3.5 cm LA A4 area: 16.2 cm2 RA A4 area: 16.0 cm2 Time Measurements MV dec time: 0.16 sec Doppler Measurements & Calculations MV E max eddie: 70.9 cm/sec Lat Peak E' Eddie: 12.0 cm/sec Med Peak E' Eddie: 9.5 cm/sec MV A max eddie: 55.8 cm/sec E/E' lat: 5.9 E/E' med: 7.5 MV E/A: 1.3 MV dec slope: 432.5 cm/sec2 PA V2 max: 98.5 cm/sec PA max PG (full): -1.1 mmHg PA V2 mean: 71.4 cm/sec PA mean PG (full): -0.62 mmHg ECHO/Echo Complete Interpretation Summary Normal LV size. Left ventricular systolic function is normal. The estimated ejection fraction is 60 %. Mild (1+) mitral valve insufficiency. Normal diastology for age. Ordering Physician: Joaquín Larson Referring Physician: Bertin Feliz M.D. Performed By: Celsa Del Real RCS
[2021-09-22 17:03] LABS: International Normalized Ratio 1.1; Prothrombin Time (Protime)PT. 14.1 SECONDS (11.7-14.9)
[2021-09-22 17:04] LABS: Partial Thromboplast Time 30.2 Seconds (24.1-36.2)
[2021-09-22] MEDS: HEPARIN/D5w 25,000 UNITS 25,000 UNITS/250 ML IV.SOLN. 9 UNITS CONT INF (17:33)
[2021-09-22] MEDS: Heparin Injection (Vial) 5,000 UNIT/ML VIAL 4000 UNIT IV (17:37)
[2021-09-22] MEDS: Atorvastatin Calcium 40 MG Tablet PO (22:20)
[2021-09-23] VITALS (15 sets, daily range): BP systolic 105–117; BP diastolic 74–85; PULSE 59–70; RESP 16–18; TEMP 36.5–36.7; O2SAT 96–100
[2021-09-23 00:44] LABS: Partial Thromboplast Time 77.9 Seconds (24.1-36.2); Troponin-I HS 3361 pg/mL (3.0-78.0)
--- NOTE | 2021-09-23 00:50 | NURSING ---
Pts primary rn aware of critical troponin result at this time.
[2021-09-23] MEDS: 0.9% Normal Saline 1,000 ML 15 ML IV (05:52)
[2021-09-23] MEDS: busPIRone 5 MG Tablet 10 MG PO (06:00)
[2021-09-23 07:17] LABS: Absolute Lymphocyte Count 1.56 X10^3/uL (0.83-4.51); Absolute Neutrophil Count 4.3 X10^3/uL (2.0-7.7); Basophil# 0.05 X10^3/uL; Basophil% 0.7 % (0-1); Eosinophil# 0.08 X10^3/uL; Eosinophils% 1.2 % (0-5); Hematocrit 43.4 % (40-54); Hemoglobin 14.7 g/dL (13.0-16.5); Lymphocyte # 1.56 X10^3/ul (0.83-4.51); Lymphocyte % 23.4 % (19-41); Mean Corp Hgb Conc 33.9 g/dL (32-36); Mean Corpuscular Hgb 30.9 pg (27.0-32.0); Mean Corpuscular Volume 91.4 fL (80-94); Mean Platelet Vol. 8.9 fl (6.2-12.0); Monocyte# 0.71 X10^3/uL; Monocyte% 10.6 % (0-10); NRBC Flagged by Analyzer 0 % (0-5); Neutrophil # 4.26 X10^3/uL (2.7-7.7); Neutrophil % 63.8 % (47-70); Platelet Count 284 K/mm3 (150-450); RBC Distribution Width CV 12.8 % (11.6-14.6); RBC Distribution Width SD 43.1 fl (35.1-43.9); Red Blood Count 4.75 M/mm3 (4.6-6.2); White Blood Count 6.7 K/mm3 (4.4-11.0)
[2021-09-23] MEDS: Aspirin E.C. 81 MG Tablet PO (07:26)
--- NOTE | 2021-09-23 07:39 | NURSING ---
slab stripper called for report prior to this RN getting report. This RN had nightshift RN, Alfonso, call report to clinical laboratory manager while this RN gave pt scheduled 81mg aspirin prior to going down for heart cath. As this RN walked into pt's room, clinical laboratory manager RN was in room getting ready to take patient down for procedure. Aspirin given and pt was taken down for heart cath.
[2021-09-23 07:41] LABS: Anion Gap 4 (5-15); BUN 18 mg/dL (7-18); BUN/Creat Ratio 19.3 RATIO (10-20); Calcium,Total 8.8 mg/dL (8.5-10.1); Chloride 109 mmol/L (98-107); Cholesterol 296 mg/dL (200); Creatinine, Serum 0.94 mg/dL (0.70-1.30); EST Glomerular Filtration Rate 91 mL/min (>60); Est Glom Filt Rate - Afr Amer 110 mL/min (>60); Estimated Creatinine Clearance 73.41 ml/min; Glucose 93 mg/dL (74-106); High Density Lipoprotein 42 mg/dL; Potassium 4.1 mmol/L (3.5-5.1); Sodium Level 137 mmol/L (136-145); Thyroid Stim Hormone (TSH) 1.47 uIU/mL (0.358-3.74); Triglycerides 125 mg/dL; Very Low Density Lipoprotein 25 mg/dL (5-40)
--- NOTE | 2021-09-23 08:21 | PN.CARD_ITS ---
Subjective Subjective Patient seen and evaluated. Underwent cardiac catheterization today Objective Data Vital Signs: Vital Signs Temp Pulse Resp BP Pulse Ox O2 Del Method 98.0 F 61 16 109/82 H 97 Room Air 09/23/21 01:00 09/23/21 07:00 09/23/21 01:00 09/23/21 01:00 09/23/21 08:11 09/23/21 08:11 Oxygen Delivery Method Room Air Weight: 160 lb Body Mass Index (BMI) 28.3 Intake & Output: Intake and Output for Last 24 Hours 09/21/21 09/22/21 09/23/21 23:59 23:59 23:59 Intake Total 1000 / 1000 117.72 / 117.72 Output Total 500 / 500 Balance 1000 / 500 -382.28 / -382.28 Lab / Micro Data Result Diagrams: 09/23/21 07:00 09/23/21 07:00 Labs: Laboratory Results - last 24 hr 09/22/21 07:44: Sodium Cancelled, Potassium Cancelled, Chloride Cancelled, Carbon Dioxide Cancelled, Anion Gap Cancelled, BUN Cancelled, Creatinine Cancelled, Estim Creat Clear Calc Cancelled, Est GFR (MDRD) Af Amer Cancelled, Est GFR (MDRD) Non-Af Cancelled, BUN/Creatinine Ratio Cancelled, Glucose Cancelled, Calcium Cancelled, Troponin I High Sens Cancelled 09/22/21 08:41: Sodium 137, Potassium 4.1, Chloride 107, Carbon Dioxide 23.0, Anion Gap 7, BUN 18, Creatinine 1.01, Estim Creat Clear Calc 71.20, Est GFR (MDRD) Af Amer 101, Est GFR (MDRD) Non-Af 83, BUN/Creatinine Ratio 17.8, Glucose 128 H, Calcium 9.3, Troponin I High Sens 10 09/22/21 11:15: Troponin I High Sens 185 H* 09/22/21 11:15: Magnesium 2.2 09/22/21 14:47: Troponin I High Sens 1469 H* 09/22/21 16:18: PT 14.1, INR 1.1, APTT 30.2 09/22/21 23:45: APTT 77.9 H 09/22/21 23:45: Troponin I High Sens 3361 H* 09/23/21 07:00: Sodium 137, Potassium 4.1, Chloride 109 H, Carbon Dioxide 24.0, Anion Gap 4 L, BUN 18, Creatinine 0.94, Estim Creat Clear Calc 73.41, Est GFR (M DRD) Af Amer 110, Est GFR (MDRD) Non-Af 91, BUN/Creatinine Ratio 19.3, Glucose 93, Calcium 8.8, Triglycerides 125, Cholesterol 296 H, LDL Cholesterol 229 H, VLDL Cholesterol 25, HDL Cholesterol 42, TSH 1.47 09/23/21 07:00: WBC 6.7, RBC 4.75, Hgb 14.7, Hct 43.4, MCV 91.4, MCH 30.9, MCHC 33.9, RDW Std Deviation 43.1, RDW Coeff of Inez 12.8, Plt Count 284, MPV 8.9, Immature Gran % (Auto) 0.300, Neut % (Auto) 63.8, Lymph % (Auto) 23.4, Gilmer % (Auto) 10.6 H, Eos % (Auto) 1.2, Baso % (Auto) 0.7, Absolute Neuts (auto) 4.3, Absolute Lymphs (auto) 1.56, Nucleated RBC % 0 09/23/21 07:00: APTT 70.0 H Cardiology Labs/Tests 09/22/21 07:44: Sodium Cancelled, Potassium Cancelled, Chloride Cancelled, Carbon Dioxide Cancelled, Anion Gap Cancelled, BUN Cancelled, Creatinine Cancelled, Est GFR (MDRD) Af Amer Cancelled, Est GFR (MDRD) Non-Af Cancelled, BUN/Creatinine Ratio Cancelled, Glucose Cancelled, Calcium Cancelled 09/22/21 08:41: Sodium 137, Potassium 4.1, Chloride 107, Carbon Dioxide 23.0, Anion Gap 7, BUN 18, Creatinine 1.01, Est GFR (MDRD) Af Amer 101, Est GFR (MDRD) Non-Af 83, BUN/Creatinine Ratio 17.8, Glucose 128 H, Calcium 9.3 09/22/21 11:15: Magnesium 2.2 09/22/21 16:18: PT 14.1, INR 1.1, APTT 30.2 09/22/21 23:45: APTT 77.9 H 09/23/21 07:00: Sodium 137, Potassium 4.1, Chloride 109 H, Carbon Dioxide 24.0, Anion Gap 4 L, BUN 18, Creatinine 0.94, Est GFR (MDRD) Af Amer 110, Est GFR (MDRD) Non-Af 91, BUN/Creatinine Ratio 19.3, Glucose 93, Calcium 8.8, Triglycerides 125, Cholesterol 296 H, LDL Cholesterol 229 H, VLDL Cholesterol 25, HDL Cholesterol 42 09/23/21 07:00: WBC 6.7, RBC 4.75, Hgb 14.7, Hct 43.4, MCV 91.4, MCH 30.9, MCHC 33.9, Plt Count 284, MPV 8.9, Immature Gran % (Auto) 0.300, Neut % (Auto) 63.8, Lymph % (Auto) 23.4, Gilmer % (Auto) 10.6 H, Eos % (Auto) 1.2, Baso % (Auto) 0.7, Absolute Neuts (auto) 4.3, Nucleated RBC % 0 09/23/21 07:00: APTT 70.0 H Rhythm: EKG: ECHO: Stress Test: Cardiac Cath: PCI: CT Surgery: Holter monitor: EPS: PPM: CXR: Chest CT Scan: Radiography Diagnostic Testing: Radiology Impression Chest X-Ray 09/22/21 08:25 IMPRESSION: Normal chest radiograph. Electronically Signed: Dominic Stanley MD at 8:40 EDT , Assessment & Plan Assessment/Plan (1) Non-STEMI (non-ST elevated myocardial infarction): PLAN: Patient underwent cardiac catheterization today which demonstrated severe triple-vessel disease. I would consider transferring the patient for [facility] for coronary artery bypass surgery.
[2021-09-23] MEDS: 0.9% Normal Saline 1,000 ML 75 ML IV (09:28)
--- NOTE | 2021-09-23 09:37 | NURSING ---
Pt gave verbal permission to give medical info to Payton Zeng. Phone number [phone]
[2021-09-23] MEDS: Fluticasone 0.05% 1 SPRAY NASAL.SRY NASAL (10:28)
[2021-09-23] MEDS: Pantoprazole Sodium 40 MG Tablet PO (10:30)
[2021-09-23] MEDS: Sertraline 100 MG Tablet PO (10:30)
[2021-09-23] MEDS: Metoprolol(XL)Succ 25 MG Tablet PO (10:30)
--- NOTE | 2021-09-23 10:51 | PCM.DC.SUM ---
Providers Date of Admission: 09/22/21 Date of Discharge: 09/23/21 Primary Care Physician: Dr. Bertin Feliz MD Consultations 09/22/21 15:42 Consult: Cardiology Routine Consulting Provider: Joaquín Larson Reason for Consult: ACS, High trop, CP lasted 3 hrs EMERGENT Consult: No MD Notified: Yes Date Notified: 09/22/21 Time Notified: 15:42 Method of Notification: Verbal Reason For Visit: ATYPICAL CHEST PAIN Diagnosis Discharge Diagnosis (1) Non-STEMI (non-ST elevated myocardial infarction): Status: Acute Code(s): I21.4 - Non-ST elevation (NSTEMI) myocardial infarction Medications at Discharge Home Medications atorvastatin 10 mg tablet 10 mg PO QHS 10/11/14 cetirizine 10 mg capsule (Zyrtec) 10 mg PO DAILY 10/11/14 mometasone 50 mcg/actuation nasal spray (Nasonex) 1 spray DAILY 10/11/14 multivitamin,am-ostd-igiwmdvu 27 mg-0.4 mg tablet (Therems-M) 1 tab PO DAILY 10/11/14 azelastine 137 mcg (0.1 %) nasal spray aerosol 2 spray BID 11/15/17 omeprazole 20 mg capsule,delayed release 20 mg PO DAILY 11/15/17 sertraline 100 mg tablet 100 mg PO DAILY 09/22/21 Hospital Course Summary of Care Provided Hospital Course: This is 51-year-old question gentleman admitted with midsternal chest pain associated with anxiety in PCU. 1.? Atypical chest pain: Patient is being admitted on monitored bed.? First troponin negative.? Second troponin is elevated, 185. OSCAR risk 1 because of elevated hs- troponin. ? Serum magnesium ordered.? Follow-up third troponin after 6 hours.? 09/23: Patient serial troponin increased, maximum 1469. Communication Equipment Repairer was consulted. Patient was a started on IV heparin drip, Brilinta 180 mg, metoprolol and high intensity atorvastatin. Fasting profile LDL 229, total cholesterol 296. Patient was taken to [facility]. Was found triple-vessel coronary artery disease. Echo showed EF 60% with mild MR. Communication Equipment Repairer talked to surgeon over [facility] and patient is accepted. 2.? Smokeless tobacco, chew tobacco: Advised quitting smoking. 3.? Dyslipidemia: On atorvastatin.? Admission level of 4.? GERD, allergic rhinitis: Patient on Nasonex, cetirizine and omeprazole at home.? Home medication reconciliation done. 5.? Severe anxiety disorder with panic attack: Started on buspirone 10 mg p.o. 3 times daily.? Patient on sertraline continued.? If patient gets further panic attack/anxiety will add alprazolam. DVT prophylaxis: Moderate risk: Heparin 5000 instantaneous twice daily Full code. Patient is transferred to [facility] for CABG. Continue current medications. Transfer papers signed. Microbiology Past 72 Hours 09/23/21 09:27 Nasal Secretion SARS-CoV-2 Antigen (Rapid) - Final Laboratory Results 09/22/21 23:45: APTT 77.9 H 09/22/21 23:45: Troponin I High Sens 3361 H* 09/23/21 07:00: Sodium 137, Potassium 4.1, Chloride 109 H, Carbon Dioxide 24.0, Anion Gap 4 L, BUN 18, Creatinine 0.94, Estim Creat Clear Calc 73.41, Est GFR (MDRD) Af Amer 110, Est GFR (MDRD) Non-Af 91, BUN/Creatinine Ratio 19.3, Glucose 93, Calcium 8.8, Triglycerides 125, Cholesterol 296 H, LDL Cholesterol 229 H, VLDL Cholesterol 25, HDL Cholesterol 42, TSH 1.47 09/23/21 07:00: WBC 6.7, RBC 4.75, Hgb 14.7, Hct 43.4, MCV 91.4, MCH 30.9, MCHC 33.9, RDW Std Deviation 43.1, RDW Coeff of Inez 12.8, Plt Count 284, MPV 8.9, Immature Gran % (Auto) 0.300, Neut % (Auto) 63.8, Lymph % (Auto) 23.4, [place] % (Auto) 10.6 H, Eos % (Auto) 1.2, Baso % (Auto) 0.7, Absolute Neuts (auto) 4.3, Absolute Lymphs (auto) 1.56, Nucleated RBC % 0 09/23/21 07:00: APTT 70.0 H Clinical Impression(s) from Imaging Studies Chest X-Ray 09/22/21 08:25 IMPRESSION: Normal chest radiograph. Electronically Signed: Dominic Stanley MD at 8:40 EDT , Echocardiogram 09/22/21 16:30 Interpretation Summary Normal LV size. Left ventricular systolic function is normal. The estimated ejection fraction is 60 %. Mild (1+) mitral valve insufficiency. Normal diastology for age. Ordering Physician: Joaquín Larson Referring Physician: Bertin Feliz M.D. Performed By: Celsa Del Real RCS Physical Exam Narrative Seen and examined on the day of discharge. Patient does not have any chest pain or shortness of breath. surveillance system monitor sinus rhythm. General: Alert, Oriented x3, Cooperative HEENT: Atraumatic, PERRLA, EOMI, Normocephalic Oral: No Gingival or Mucosal Lesions/ Ulcerations Neck: Supple, No JVD, Negative Carotid Bruits Lungs: Air entry equal in bilateral lung bases. No crepitation/rhonchi Cardiovascular: Regular rate, Regular Rhythm, Normal S1, Normal S2, No murmurs Abdomen: Bowel Sounds Present, Soft, Non Tender, Non-Distended : No renal angle tenderness. No suprapubic tenderness. Extremities: No edema, Capillary Refill Less than 3 Seconds Skin: No rashes, No breakdown Musculoskeletal: No Tenderness to Palpation of Joints or Extremities Neurological: Cranial nerves II-XII grossly intact, DTR 2+/4 and Symmetrical, Neuro grossly intact Psych/Mental Status: Mild anxiety controlled Weight / BMI Weight Weight: 160 lb Body Mass Index (BMI) 28.3 ABG / Lab / Microbiology Data Result Diagrams: 09/23/21 07:00 09/23/21 07:00 Laboratory: Laboratory Results - last 24 hr 09/22/21 11:15: Troponin I High Sens 185 H* 09/22/21 11:15: Magnesium 2.2 09/22/21 14:47: Troponin I High Sens 1469 H* 09/22/21 16:18: PT 14.1, INR 1.1, APTT 30.2 09/22/21 23:45: APTT 77.9 H 09/22/21 23:45: Troponin I High Sens 3361 H* 09/23/21 07:00: Sodium 137, Potassium 4.1, Chloride 109 H, Carbon Dioxide 24.0, Anion Gap 4 L, BUN 18, Creatinine 0.94, Estim Creat Clear Calc 73.41, Est GFR (MDRD) Af Amer 110, Est GFR (MDRD) Non-Af 91, BUN/Creatinine Ratio 19.3, Glucose 93, Calcium 8.8, Triglycerides 125, Cholesterol 296 H, LDL Cholesterol 229 H, VLDL Cholesterol 25, HDL Cholesterol 42, TSH 1.47 09/23/21 07:00: WBC 6.7, RBC 4.75, Hgb 14.7, Hct 43.4, MCV 91.4, MCH 30.9, MCHC 33.9, RDW Std Deviation 43.1, RDW Coeff of Inez 12.8, Plt Count 284, MPV 8.9, Immature Gran % (Auto) 0.300, Neut % (Auto) 63.8, Lymph % (Auto) 23.4, [place] % (Auto) 10.6 H, Eos % (Auto) 1.2, Baso % (Auto) 0.7, Absolute Neuts (auto) 4.3, Absolute Lymphs (auto) 1.56, Nucleated RBC % 0 09/23/21 07:00: APTT 70.0 H Microbiology: Microbiology 09/23/21 09:27 Nasal Secretion SARS-CoV-2 Antigen (Rapid) - Final Meaningful Use Info Meaningful Use Diagnoses (Choose all that apply): AMI AMI/Post PCI/Angioplasty Aspirin given w/in 24hrs of arrival?: Yes ASA at discharge?: Yes Statins at discharge?: Yes Tonny/ARB at discharge?: No Reason Tonny/ARB not ordered:: Hypotension Beta Ángel at discharge?: Yes Done w/ Acute MA measure.: Yes Discharge Plan Admission Admit Date/Time: 09/22/21 19:11 Primary Reason for Your Visit: Acute NSTEMI Attending Provider: True Linton Primary Care Provider: Bertin Feliz Consulting Providers: Joaquín Larson Discharge Orders/Prescriptions Prescriptions: No Action atorvastatin 10 MG tablet 10 mg PO QHS mometasone [Nasonex] 1 SPRAY spray,non-aerosol 1 spray NASAL DAILY Therems-M 1 TABLET tablet 1 tab PO DAILY Zyrtec 10 MG capsule 10 mg PO DAILY omeprazole 20 MG capsule 20 mg PO DAILY azelastine 1 SPRAY aerosol,spray 2 spray NASAL BID sertraline 100 mg tablet 100 mg PO DAILY Referrals / Follow Up: Bertin Feliz MD [Primary Care Provider] - Disposition Disposition (needs filled in before D/C Order can be placed): Acute Care Hospital Charges/Coding Visit Charges OBSV E&M: 42608 Observation care discharge
--- NOTE | 2021-09-23 11:21 | NURSING ---
Report called to [facility] Wilma Patel.
--- NOTE | 2021-09-23 13:21 | NURSING ---
Family at bedside and primary caregiver, all updated on pt's plan of care and transfer to [facility] in [place] at 1130.
--- NOTE | 2021-09-26 12:12 | CL.D_ITS ---
Patient Name: CATHERINE SCHWARTZ Study Date: 09/23/2021 Performing: Jorge Bowman MD Ht: 62.99 inches 160 cm : 1970 Wt: 160.94 lbs 73 kg Age: 51 Gender: male BSA: 1.76 PROCEDURE(S) PERFORMED DC01-(91238)LHC/COR/LV CLINICAL PROFILE AND INDICATIONS Indications: Suspected CAD Heart Failure: None Stress/Imaging Stress/Image Study Performed: No CONCLUSIONS Triple-vessel disease involving a long LAD lesion, circumflex artery lesion, and distal right coronar y artery lesion and mildly depressed left ventricular systolic function. RECOMMENDATIONS Surgery consult for coronary revascularization DESCRIPTION OF PROCEDURE The patient arrived to the procedure lab. The risks and benefits of the procedure as well as a full d escription of our services here and current unavailability of surgical backup were fully explained to the patient and/or their significant other prior to the catheterization. The Timeout was completed, verifying the correct patient and procedure. The patient's procedural site was prepped and draped in the usual fashion. Local anesthetic was given subcutaneously to right radial region with Lidocaine 2% . Using a modified Seldinger technique, arterial access was obtained via the right radial artery, a 6 Fr sheath was inserted. Right Coronary Artery selective angiography was then performed in multiple v iews using a 5 Fr. 4.0 [place] catheter. Left Coronary Artery selective angiography was performed in mu ltiple views using a 5 Fr. 4.0 [place] catheter. Left Ventriculography was performed in RICHARDSON projection using a 5 Fr. Pigtail catheter. LV to AO pullback pressures were then recorded.The arterial sheath was pulled and a TR Band was applied for hemostasis. Sheath flushed. 10cc air inserte d. CORONARY ANGIOGRAPHY DOMINANCE: Right Dominant LEFT HEART ASSESSMENT Left Ventricular Ejection Fraction: by LV Gram 50 % Anterior Hypokinesis - Mild Depressed Left Ventricular systolic function LEFT MAIN: Mild calcification LEFT ANTERIOR DESCENDING ARTERY: Long mildly calcified LAD lesion of 60 to 70% involving the takeoff of 2 diagonal branches with ostial stenosis CIRCUMFLEX ARTERY: Diffusely diseased involving the mid segment of 80 to 90% stenosis and distal segm ent of 80% stenosis RIGHT CORONARY ARTERY: MID RCA: Moderate luminal irregularities up to 50% RT PLV: 80 % Stenosis COMPLICATIONS No Complications PROCEDURE MEDICATIONS Fentanyl 50 mcg IV Versed 1 mg IV Oxygen: 2 L/min via nasal cannula SUMMARY OF HEMODYNAMIC DATA Time AIR REST ECG 07:35:53 Art 117/69 (87) 07:59:49 AO 103/76 (88) SA 08:05:06 LV 84/11, 12 08:14:06 LV 94/11, 16 08:14:12 LV 96/15, 22 08:15:00 LVp 97/14, 23 08:15:05 AOp 113/75 (93) 08:15:10 08:26:56 Signed By Jorge Bowman MD On 09/23/2021 08:29:47 Jorge Bowman MD
== END 2021-09-23 13:40 | disposition short-term general hospital (02) | DRG 282 ==
LOC: ED 09:43 → PCU 12:11
PROVIDERS: Admitting Provider Internal Medicine; Emergency Provider Student in an Organized Health Care Education/Training Program; PCP Internal Medicine; Visit Provider Internal Medicine
DX: I21.4 Non-ST elevation (NSTEMI) myocardial infarction (principal); I25.10 Atherosclerotic heart disease of native coronary artery without angina pectoris; R03.0 Elevated blood-pressure reading, without diagnosis of hypertension; E78.5 Hyperlipidemia, unspecified; J30.9 Allergic rhinitis, unspecified; K21.9 Gastro-esophageal reflux disease without esophagitis; F41.0 Panic disorder [episodic paroxysmal anxiety]; F17.220 Nicotine dependence, chewing tobacco, uncomplicated; Z20.822 Contact with and (suspected) exposure to COVID-19; Z79.899 Other long term (current) drug therapy
CPT/HCPCS: 36415; 71045; 80048; 80061; 83735; 84443; 84484; 85025; 85610; 85730; 87426; 93005; 93306; 93458; 99152; 99153; 99285; J7030; J7120; A4216; C1769; C1894; J2405; Q9967

== ENCOUNTER 2021-10-04 16:57 | Inpatient (IN) | payer MEDICARE, MEDICAID, SELFPAY ==
[2021-10-04 17:08] VITALS: BP 140/88; PULSE 108; RESP 16; TEMP 36.9; O2SAT 98; BMI 29.7
[2021-10-04 19:22] VITALS: BP 139/81; PULSE 106; RESP 16; TEMP 36.7; O2SAT 96
[2021-10-04 19:52] VITALS: O2SAT 98
[2021-10-04 21:40] VITALS: BP 120/74; PULSE 104
[2021-10-04] MEDS: Metoprolol Tartrate 25 MG Tablet 12.5 MG PO (21:40)
[2021-10-04] MEDS: Acetaminophen 325 MG Tablet 650 MG PO (23:25)
[2021-10-05 05:15] LABS: Hematocrit 31.6 % (40-54); Mean Corp Hgb Conc 31.6 g/dL (32-36); Mean Corpuscular Hgb 30.5 pg (27.0-32.0); Mean Corpuscular Volume 96.3 fL (80-94); Mean Platelet Vol. 9.2 fl (6.2-12.0); Platelet Count 518 K/mm3 (150-450); RBC Distribution Width CV 16.3 % (11.6-14.6); Red Blood Count 3.28 M/mm3 (4.6-6.2); White Blood Count 9.5 K/mm3 (4.4-11.0)
[2021-10-05] MEDS: Enoxaparin 40 MG/0.4 ML Syringe SC (05:26)
[2021-10-05 05:30] LABS: ALB/GLOB Ratio 0.8 RATIO (0.9-2.4); AST(SGOT) 54 U/L (15-37); Alanine Aminotransfer ALT/SGPT 95 U/L (16-61); Albumin, Serum 3.1 g/dL (3.2-5.0); Alkaline Phosphatase 224 U/L (45-117); Anion Gap 6 (5-15); BUN 22 mg/dL (7-18); BUN/Creat Ratio 30.1 RATIO (10-20); Calcium,Total 8.8 mg/dL (8.5-10.1); Chloride 106 mmol/L (98-107); Creatinine, Serum 0.73 mg/dL (0.70-1.30); EST Glomerular Filtration Rate 121 mL/min (>60); Est Glom Filt Rate - Afr Amer 147 mL/min (>60); Estimated Creatinine Clearance 94.53 ml/min; Globulin 4.1 g/dL (2.2-4.2); Glucose 95 mg/dL (74-106); Magnesium 2.3 mg/dL (1.6-2.6); Phosphorus 3.5 mg/dL (2.5-4.9); Potassium 3.7 mmol/L (3.5-5.1); Protein, Total 7.2 g/dL (6.4-8.2); Sodium Level 136 mmol/L (136-145)
[2021-10-05 07:29] VITALS: O2SAT 97
[2021-10-05 07:30] VITALS: BP 121/79; PULSE 88; RESP 16; TEMP 36.6; O2SAT 97
[2021-10-05 08:24] VITALS: PULSE 88
[2021-10-05] MEDS: Aspirin 81 MG TAB.CHEW 162 MG PO (08:24)
[2021-10-05] MEDS: Metoprolol Tartrate 25 MG Tablet 12.5 MG PO ×2 (08:24→21:29)
[2021-10-05] MEDS: Fluticasone 0.05% 1 SPRAY NASAL.SRY 2 SPRAY NASAL (08:25)
[2021-10-05] MEDS: amLODIPine 2.5 MG Tablet PO (08:26)
[2021-10-05] MEDS: Pantoprazole Sodium 40 MG Tablet PO (08:26)
[2021-10-05] MEDS: Multivitamins,Therapeutic Tablet 1 TABLET PO (08:27)
[2021-10-05] MEDS: Colchicine 0.6 MG TABLET PO (08:27)
[2021-10-05] MEDS: Loratadine 10 MG Tablet PO (08:27)
[2021-10-05] MEDS: Acetaminophen 325 MG Tablet 650 MG PO (09:56)
[2021-10-05 19:09] VITALS: BP 132/64; PULSE 77; RESP 17; TEMP 36.1; O2SAT 98
[2021-10-05 21:29] VITALS: BP 135/76; PULSE 113
[2021-10-05 22:21] VITALS: PULSE 113
[2021-10-06] MEDS: Enoxaparin 40 MG/0.4 ML Syringe SC (05:57)
[2021-10-06 07:26] VITALS: BP 118/72; PULSE 101; RESP 18; TEMP 37.1; O2SAT 97
[2021-10-06] MEDS: Aspirin 81 MG TAB.CHEW 162 MG PO (08:59)
[2021-10-06] MEDS: amLODIPine 2.5 MG Tablet PO (09:00)
[2021-10-06] MEDS: Multivitamins,Therapeutic Tablet 1 TABLET PO (09:00)
[2021-10-06] MEDS: Colchicine 0.6 MG TABLET PO (09:00)
[2021-10-06] MEDS: Pantoprazole Sodium 40 MG Tablet PO (09:00)
[2021-10-06] MEDS: Loratadine 10 MG Tablet PO (09:00)
[2021-10-06] MEDS: Fluticasone 0.05% 1 SPRAY NASAL.SRY 2 SPRAY NASAL (09:00)
[2021-10-06 09:09] VITALS: BP 112/74; PULSE 98
[2021-10-06] MEDS: Metoprolol Tartrate 25 MG Tablet 12.5 MG PO ×2 (09:09→20:43)
[2021-10-06 09:18] VITALS: PULSE 98
[2021-10-06 19:35] VITALS: BP 106/63; PULSE 95; RESP 17; TEMP 36.4; O2SAT 100
[2021-10-06 20:43] VITALS: PULSE 104
[2021-10-06 20:46] VITALS: PULSE 105
[2021-10-07] VITALS (7 sets, daily range): BP systolic 118–131; BP diastolic 77–83; PULSE 74–104; RESP 16–18; TEMP 36.6–36.8; O2SAT 95–98
[2021-10-07] MEDS: Enoxaparin 40 MG/0.4 ML Syringe SC (05:35)
[2021-10-07] MEDS: Acetaminophen 325 MG Tablet 650 MG PO ×2 (05:38→21:38)
[2021-10-07] MEDS: Fluticasone 0.05% 1 SPRAY NASAL.SRY 2 SPRAY NASAL (07:42)
[2021-10-07] MEDS: amLODIPine 2.5 MG Tablet PO (07:42)
[2021-10-07] MEDS: Pantoprazole Sodium 40 MG Tablet PO (07:42)
[2021-10-07] MEDS: Metoprolol Tartrate 25 MG Tablet 12.5 MG PO ×2 (07:42→21:31)
[2021-10-07] MEDS: Loratadine 10 MG Tablet PO (07:42)
[2021-10-07] MEDS: Aspirin 81 MG TAB.CHEW 162 MG PO (07:42)
[2021-10-07] MEDS: Colchicine 0.6 MG TABLET PO (07:44)
[2021-10-07] MEDS: Multivitamins,Therapeutic Tablet 1 TABLET PO (07:44)
--- NOTE | 2021-10-07 11:00 | HP.PCM_ITS ---
[facility] - General General Date of Admission: 10/04/21 Date of Service: 10/07/21 Chief Complaint: Physical debility due to CAD with recent CABG X 6 vessels. HPI Narrative CATHERINE SCHWARTZ, is a 51 YO M with a PMH of Depression, anxiety, HTN, HLD, allergic rhinitis, nephrolithiasis, neurofibromatosis, asthma, developmental delay, GERD and oral nicotine dependence who presented to [facility] ED on 09/21/21 c/o sudden onset retrosternal CP at 5 AM and had been present for 3 hours prior to coming to the ED. EKG showed a anterior hemiblock with possible inferior infarct, age undetermined. The first HS troponin was normal but the second was elevated at 185. Chest x-ray was normal. He was admitted to the hospitalist service and ECHO and cardiology consult were ordered. Follow up troponins were #3, 1469 and the 4th was 3361. The echocardiogram showed a left ventricular ejection fraction of 60% with no regional wall motion abnormalities. There was +1 mitral regurgitation and normal diastology for age. Dr. Renae saw the patient in consult and recommended coronary angiography. He also agreed with keeping the patient on aspirin, Brilinta, statin, intravenous heparin infusion and a beta-rogelio. Coronary angiography revealed severe triple-vessel disease and the reprographics technician recommended transferring the patient for consideration for coronary artery bypass grafting. He was transferred to [facility] in [place] on 09/23/21 and underwent CABG X 6 on 09/26/[address] Gutierrez. Post operatively he was transfused with 2 units of PRBC's. Liver enzymes were persistently elevated. Statin was discontinued due to the elevated liver tests. He was transferred to the inpt acute rehab unit at [facility] on 10/04/21 for 3 hours of therapy daily to restore function at or near his prior level of function. All labs following admission to the rehab were reviewed on 10/05/21. Hemoglobin is decreased at 10. Platelets are mildly increased at 518,000 and this is likely due to stress/inflammation. Potassium is 3.7 and the BUN is 22 with a creat of 0.73. Liver enzymes are still mildly abnormal with a total bilirubin of 1.3, AST of 54, ALT of 95 and an alk phos of 224. Magnesium and phosphorus were within normal limits. [facility] Medical History (Updated 10/07/21 @ 14:[address] Christina Belle DO) Allergic rhinitis Anxiety Coronary artery disease Hyperlipemia Hypertension Left anterior hemiblock Myocardial infarct Nephrolithiasis Neurofibromatosis Stenosis of right carotid artery Home Medications cetirizine 10 mg capsule (Zyrtec) 10 mg PO DAILY 10/11/14 [History Last Taken Unknown] albuterol sulfate 2.5 mg/3 mL (0.083 %) solution for nebulization 2.5 mg inhalation Q2H PRN Shortness Of Breath Or Wheezing 10/04/21 [History Last Taken Unknown] amlodipine 2.5 mg tablet 2.5 mg PO DAILY bp 10/04/21 [History Last Taken Unknown] aspirin 81 mg chewable tablet 162 mg PO DAILY heart 10/04/21 [History Last Taken Unknown] colchicine 0.6 mg tablet 0.6 mg PO DAILY gout 10/04/21 [History Last Taken Unknown] fluticasone propionate 50 mcg/actuation nasal spray,suspension 2 spray intranasal DAILY allergies 10/04/21 [History Last Taken Unknown] ipratropium 0.5 mg-albuterol 3 mg (2.5 mg base)/3 mL nebulization soln 3 ml inhalation Q4H PRN sob 10/04/21 [History Last Taken Unknown] metoprolol tartrate 25 mg tablet 12.5 mg PO BID bp 10/04/21 [History Last Taken Unknown] multivitamin 1 tab PO DAILY vitamin 10/04/21 [History Last Taken Unknown] pantoprazole 40 mg tablet,delayed release (Protonix) 40 mg PO DAILY gerd 10/04/21 [History Last Taken Unknown] Allergy/AdvReac Type Severity Reaction Status Date / Time No Known Allergies Allergy Verified 09/22/21 07:58 Family History (Updated 10/07/21 @ 11:[address] Christina Belle DO) Mother CAD (coronary artery disease) Had heart surgery at 49 YOA Hyperlipidemia Father Hyperlipidemia Brother Asthma Surgical History H/O coronary artery bypass surgery (09/26/21) History of left heart catheterization (09/23/21) Social History (Updated 10/07/21 @ 11:[address] Christina Belle DO) household members: other details: lives in a residential housing: other details: assisted Smoking Status: Former smoker quit date: 02/23/91 pack-years: 2 Tobacco: How many years used: 2 Smokeless tobacco user: chewing tobacco alcohol intake: never substance use type: does not use ROS Constitutional Constitutional: Reports weakness; Denies anorexia, change in weight, chills, fatigue, fever(s) or night sweats Eyes Eyes: Denies blurry vision, change in vision, eye pain or loss of vision ENT HEENT: Denies abnormal hearing, dysphagia, headache(s), hearing loss, nasal congestion, nasal discharge, otalgia, post nasal drip or sore throat Cardiovascular Cardiovascular: Reports chest pain; Denies dyspnea on exertion, edema, lightheadedness, orthopnea, palpitations, paroxysmal nocturnal dyspnea or s yncope Respiratory/Chest Respiratory/Chest: Reports cough; Denies dyspnea, shortness of breath at rest, shortness of breath with exertion or wheezing Gastrointestinal Gastrointestinal: Denies abdominal pain, constipation, diarrhea, dyspepsia, hematemesis, hematochezia, nausea or vomiting Genitourinary Genitourinary: Denies dysuria, hematuria, nocturia or urinary frequency Musculoskeletal Musculoskeletal: Denies back pain, joint pain, joint swelling or neck pain Integumentary Integumentary: Reports wounds; Denies jaundice or unusual bruising Neurologic Neurologic: Reports dizziness and weakness; Denies confusion, disequilibrium, focal weakness, headache(s), paresthesias, seizures or tremor(s) Psychiatric Psychiatric: Denies anxiety, depression, homicidal ideation or suicidal ideation Endocrine Endocrinology: Denies change in body appearance, polydipsia or polyuria Hematologic/Lymphatic Hematologic/Lymphatic: Denies easy bleeding, easy bruising or lymphadenopathy Allergic/Immunologic Allergic/Immunologic: Reports rhinitis and asthma; Denies throat swelling, hives or eczemia Vital Signs Vital Signs Vital Signs: 10/06/21 19:35 10/06/21 20:43 10/06/21 20:46 Temperature 97.6 F L Temperature Source Oral Pulse Rate 95 104 H 105 H Respiratory Rate 17 Blood Pressure 106/63 Blood Pressure Mean 77 Blood Pressure Source Blood Pressure Position Sitting Blood Pressure Location Left Arm Pulse Ox 100 Oxygen Delivery Method Room Air 10/07/21 07:27 10/07/21 07:42 10/07/21 08:09 Temperature 97.8 F Temperature Source Oral Pulse Rate 103 H 74 Respiratory Rate 18 Blood Pressure 131/78 H Blood Pressure Mean 95 Blood Pressure Source Monitor Blood Pressure Position Sitting Blood Pressure Location Right Arm Pulse Ox 98 98 Oxygen Delivery Method Room Air Room Air Weight Weight: 152 lb Body Mass Index (BMI) 29.7 Physical Exam Const alert and no apparent distress Constitutional Narrative: child like with developmental delay. Lives in a residential. General Appearance: cooperative and well kempt HEENT normocephalic, head/scalp atraumatic, hearing grossly normal bilaterally, moist oral mucous membranes and oropharynx normal Eyes PERRL, EOMs intact bilaterally, conjunctivae normal, no scleral icterus and normal visual kevin by confrontation Neck no lymphadenopathy, supple and no carotid bruits Neck Narrative: no JVD General: trachea midline Chest Chest Narrative: The mid sternal incision is intact with no dehiscence, no erythema and no DC. The other incisions are healing and have no erythema, no DC and no increased warmth to touch. Chest: symmetrical chest wall rise Resp normal respiratory effort, normal air movement, no use of accessory muscles and clear to auscultation bilaterally Resp Narrative: Cough is dry. Effort and Inspection: able to speak in complete sentences Cardio regular rate, regular rhythm, S1 normal heart sound, S2 normal heart sound, no murmurs, no rub and no gallops GI normal to inspection, nondistended, normoactive bowel sounds, soft to palpation, non-tender and no masses GI Narrative: No guarding with palpation no CVA tenderness Extremity normal capillary refill, no calf tenderness and no pedal edema Skin General Skin Exam: no breakdown Rashes: no rashes Wound Narrative: Many nodular neurofibromas of the skin of the hands and forearms. Cafe au lait spot in his back in the right low back. He also has freckles in the axillas. Neuro CN's II-XII intact bilaterally, moves all extremities, no focal motor deficits and no sensory deficits noted Psych cooperative Psych Narrative: He is anxious but cooperative/ Appearance: appropriate Attitude: other Anxious and a little guarded.....a lot of new people since he first came to the ED on 09/22/21 Activity / Motor Behavior: appropriate eye contact Speech: normal speech Results Lab / Micro Data Result Diagrams: 10/05/21 05:00 10/05/21 05:00 Assessment & Plan Assessment/Plan (1) Physical debility: (2) Recent non-ST elevation myocardial infarction (NSTEMI): (3) H/O coronary artery bypass surgery: (4) Left anterior hemiblock: (5) Hypertension: (6) Hyperlipemia: (7) Abnormal LFTs: (8) Nonalcoholic hepatosteatosis: (9) Gallbladder sludge: (10) Nicotine dependence: (11) GERD (gastroesophageal reflux disease): (12) Stenosis of right carotid artery: (13) Cognitive developmental delay: PLAN: More likely than not secondary to neurofibromatosis. (14) Cough: PLAN: I suspect this is due to anxiety. When he is anxious when he just meets you for the first time he coughs but, one he is comfortable he is not coughing. His lungs are CTA and he is not on an TERE or an ARB. He is on a beta rogelio and has a hx of Asthma but, there is no wheezing. When he was outside and then came in from walking he was diaphoretic and c/o being dizzy but, orthostatics were negative. PLAN: Plan PLAN PT for gait stability OT for ADL's ST for evaluation for cognition Analgesics as needed Bowel protocol Fall precautions Assess for Anxiety/Depression GI prophylaxis with pantoprazole 40 mg daily DVT prophylaxis with Lovenox 40 mg subcu daily Follow up with cardiothoracic surgery, cardiology, PCP following DC from IP Rehab AM lab including CMP, CBC, Mag and Phos was reviewed. Nirav DM PRN for cough. Unit Exclusion This patient is an acute care inpatient being housed in the excluded unit because of capacity issues related to the disaster or emergency.: Yes Charges/Coding Visit Charges Inpatient E&M: 86842 Init Hosp L3
--- NOTE | 2021-10-07 11:00 | NURSING ---
Therapy informed this nurse that patient had been taken off the floor to do Physical Therapy and he got diaphoretic, dizzy, and clammy. Patient assisted back to the rehab floor via w/c and orthostatic VS obtained and negative. Dr. Belle aware. Spo2 100% RA. Will monitor.
--- NOTE | 2021-10-07 13:46 | CASEMGMT ---
Social Work Attempted to visit pt, but pt in therapy. SW to reattempt at a later time. Joselin Garcia, SAP TECHNICAL ARCHITECT INCOME AUDITOR
--- NOTE | 2021-10-07 15:07 | PCM.RU.PYE ---
Admission Information Primary Diagnosis:: Physical debility secondary to recent NSTEMI followed by CABG x6 vessels. Status Changes from Prescreening?: No changes Identified Actual Problem List:: Skin Intergrity, Pain, ALteration in Cmfrt, Cognitve Impr/Memory Loss, Depression, Mobility Impaired, Self Care Deficit, Know.Dfct of Medicaitons and Alteration-Leisure Activ. Potential Problem List:: DVT, Bleeding, Infection, UTI, Aspiration, Falls, Skin Integrity and Depression Risk of Complications DVT: LMWH and MAZIN Hose Bleeding: Monitor Lab Values, Nursing to Teach Precautions for anti-coagulation therapy., Wound, if applicable, to be assessed every shift. and Stroke patients assessed for lethargy or change in status. Infection: Clinical Staff to Monitor for S/S of infection: and S/S of infection include fever, redness, warmth, etc. Urinary Tract Infection: Monitor for frequency, burning, discomfort, or incontinence. and Nursing will obtain urine sample for urinalysis and C&S when ordered. Aspiration: Clinical staff will monitor for coughing, drooling, congestion., Speech will evaluate swallowing and dsyphasia. and Nursing will monitor patient swallowing during meals. Falls: Patient will be evaluated for Fall Precautions and Patient will be placed on Fall Precautions as indicated per protocol. Skin Breakdown: Nursing will assess skin daily using assessment tool. and Nursing will place on Skin Breakdown Precautions as indicated. Pain: Clinical staff will assess patient's pain level per protocol., Medications will be given, if needed, and the pain level reassessed. and Other methods: Massage, distraction, decrease stimulus, etc. used PRN. Plan of Care Patient requires physician specializing in physical medicine and rehab oversight to provide close medical supervision of rehab issues including: Pain Management, Sleep Problems, Bowel and Bladder, Medical and co-morbidity Management, DVT prophylaxis, Rehabilitation Leadership and Coordination of treatment team Patient needs Physical Therapy: For a minimum of 1 hour and At least 5 out of 7 days Patient needs Physical Therapy to improve:: Mobility, Strengthening, Transfers, Stretching, ROM, Endurance, Stairs, Gait and Balance Patient needs Occupational Therapy: For a minimum of 1 hour and At least 5 out of 7 days Patient needs Occupational Therapy to improve ADL's incl.: Eating, Grooming, Bathing, Dressing, Toileting, Toilet transfers, Community Reintegration, Higher functioning activities, Household tasks, Adaptive Equipment, Splinting and Other activities as determined Patient requires 24/7 Rehabilitation Nursing for: Pain Issues, Identifying and preventing risk factors, Monitoring and reporting current medical conditions, Assisting with ambulation, transfer, and all ADL's, Teaching patients about disease process and medications, Family teaching, Providing safe environment, Bowel and Bladder Issues, Skin integrity and Medication Management Patient needs Science Interpreter/ Case Management for: Discharge Planning, Arranging Home Equipment or Services and Family Interventions Patient needs Dietary and Nutrition Services for: Adequate Nutrition, Nutritional Supplements and Nutritional Education Goals Patient will remain: free from falls and or injury at time of discharge. Patient will perform bed mobility at: MOD I level of assist. Patient will complete transfers from bed to chair at: MOD I level of assist. Patient will ambulate: 100 feet and - (400 ft with no AD without LOB) Patient will complete upper body dressing at: MOD I level of assist. Patient will complete lower body dressing at: - (with CGA and AD for bending to the floor for safety and pain management initailly and RANDELL by the time of DC.) Patient will complete toileting at: MOD I level of assist. Patient will perform bathing at: MOD I level of assist. Patient will complete grooming at: MOD I level of assist. Patient will complete home management skills at: MOD I level of assist. Patient will achieve: - (1 curb step) Patient will have pain level of: of 3 or less Patient's skin will: remain intact Patient will receive: adequate nutrition. Discharge Planning Pt Prognosis for Sig. Practical Improv. w/in Reasonable Time: Good Estimated Length of stay (days): 14 Anticipated D/C Destination: Assisted Living Facility (intermediate) Was Preadmission Assessment Accurate?: Yes
[2021-10-07] MEDS: guaiFENesin Dm 10 ML UDC 5 ML PO ×2 (17:44→21:55)
[2021-10-07] MEDS: Ipratropium Bromide 0.06% NASAL SPRAY 2 SPRAY NASAL (21:28)
[2021-10-08] MEDS: Enoxaparin 40 MG/0.4 ML Syringe SC (05:32)
[2021-10-08] MEDS: guaiFENesin Dm 10 ML UDC 5 ML PO ×3 (05:36→20:36)
[2021-10-08 07:34] VITALS: BP 125/91; PULSE 100; RESP 18; TEMP 36.9; O2SAT 99
[2021-10-08 07:44] VITALS: O2SAT 95
[2021-10-08 08:07] VITALS: BP 125/91; PULSE 100
[2021-10-08] MEDS: amLODIPine 2.5 MG Tablet PO (08:07)
[2021-10-08] MEDS: Aspirin 81 MG TAB.CHEW 162 MG PO (08:07)
[2021-10-08] MEDS: Colchicine 0.6 MG TABLET PO (08:07)
[2021-10-08] MEDS: Multivitamins,Therapeutic Tablet 1 TABLET PO (08:07)
[2021-10-08] MEDS: Loratadine 10 MG Tablet PO (08:07)
[2021-10-08] MEDS: Pantoprazole Sodium 40 MG Tablet PO (08:07)
[2021-10-08] MEDS: Metoprolol Tartrate 25 MG Tablet 12.5 MG PO ×2 (08:07→20:30)
[2021-10-08] MEDS: Ipratropium Bromide 0.06% NASAL SPRAY 2 SPRAY NASAL ×2 (08:08→20:31)
[2021-10-08 19:21] VITALS: BP 115/69; PULSE 98; RESP 16; TEMP 36.6; O2SAT 98
[2021-10-08 20:30] VITALS: BP 115/69; PULSE 98; RESP 14; O2SAT 98
--- NOTE | 2021-10-09 03:10 | NURSING ---
Reviewed and agree with HORTICULTURAL AGENT documentation and assessment charting.
[2021-10-09] MEDS: Enoxaparin 40 MG/0.4 ML Syringe SC (05:25)
[2021-10-09 07:28] VITALS: BP 97/62; PULSE 97; RESP 16; TEMP 36.8; O2SAT 100
[2021-10-09] MEDS: Ipratropium Bromide 0.06% NASAL SPRAY 2 SPRAY NASAL ×2 (08:42→20:52)
[2021-10-09] MEDS: Multivitamins,Therapeutic Tablet 1 TABLET PO (08:43)
[2021-10-09] MEDS: Aspirin 81 MG TAB.CHEW 162 MG PO (08:43)
[2021-10-09 08:44] VITALS: PULSE 97
[2021-10-09] MEDS: Loratadine 10 MG Tablet PO (08:44)
[2021-10-09] MEDS: Metoprolol Tartrate 25 MG Tablet 12.5 MG PO ×2 (08:44→20:49)
[2021-10-09] MEDS: amLODIPine 2.5 MG Tablet PO (08:48)
[2021-10-09] MEDS: Colchicine 0.6 MG TABLET PO (08:48)
[2021-10-09] MEDS: guaiFENesin Dm 10 ML UDC 5 ML PO (08:48)
[2021-10-09] MEDS: Pantoprazole Sodium 40 MG Tablet PO (08:48)
--- NOTE | 2021-10-09 14:56 | CHAPLAIN ---
Type of Pastoral Visit _x__ Initial Visit ___ Follow-up Visit ___ On-call Visit ___ General Patient Visit ___ Spiritual Assessment ___ Family Conference ___ Bereavement ___ Rapid Response ___ Code Blue ___ Other (describe below) Pastoral Care Referral From _x__ Patient ___ Family ___ Nurse ___ Physician ___ Extras Casting Director ___ Tire Stripper ___ Other (describe below) Sacrament/Intervention _x__ Active listening ___ Anointing ___ Methodist ___ Bereavement ___ Communion ___ Maggy exploration ___ ___ Life review _x__ Prayer ___ Reconciliation ___ Sacrament of Sick _x__ Supportive presence ___ Wedding ___ Other (describe below) Pastoral Comments sat with patient between his therapy sessions; pt answers questions and admits to being scared due to heart attack and heart surgery; pt is in recovery and states that he enjoys the therapy; pt says otherwise he would just be at home alone; pt has hobby of putting together legos; pt welcomes prayer and presence
[2021-10-09 20:49] VITALS: BP 104/64; PULSE 100
[2021-10-09 22:00] VITALS: BP 104/64; PULSE 100; RESP 14; TEMP 36.9; O2SAT 99
[2021-10-10] MEDS: Enoxaparin 40 MG/0.4 ML Syringe SC (06:12)
[2021-10-10 07:16] VITALS: BP 104/61; PULSE 96; RESP 14; TEMP 36.8; O2SAT 94
[2021-10-10 08:13] VITALS: PULSE 96
[2021-10-10] MEDS: amLODIPine 2.5 MG Tablet PO (08:13)
[2021-10-10] MEDS: Loratadine 10 MG Tablet PO (08:13)
[2021-10-10] MEDS: Aspirin 81 MG TAB.CHEW 162 MG PO (08:13)
[2021-10-10] MEDS: Pantoprazole Sodium 40 MG Tablet PO (08:13)
[2021-10-10] MEDS: Metoprolol Tartrate 25 MG Tablet 12.5 MG PO ×2 (08:13→21:59)
[2021-10-10] MEDS: Colchicine 0.6 MG TABLET PO (08:13)
[2021-10-10] MEDS: Multivitamins,Therapeutic Tablet 1 TABLET PO (08:13)
[2021-10-10] MEDS: Ipratropium Bromide 0.06% NASAL SPRAY 2 SPRAY NASAL ×2 (08:14→22:02)
[2021-10-10] MEDS: guaiFENesin Dm 10 ML UDC 5 ML PO ×3 (08:44→22:02)
[2021-10-10] MEDS: Acetaminophen 325 MG Tablet 650 MG PO ×2 (09:25→21:59)
--- NOTE | 2021-10-10 09:52 | PN_ITS ---
Subjective Subjective Kelvin was seen on team rounds today. His long time friend and subwarehouse supervisor at adult day care, Edwin, was present at time rounds and he looks out for Kelvin. Afebrile VSS-blood pressure is well controlled. The resting heart rate is high in the high 90's up to 100. Maintaining appropriate oxygen saturation on RA Oral intake is good No significant post void residuals. Weight is stable. Discussed with nursing - no problems that need addressed. Reviewed the PT/OT notes Medication list reviewed. Denies CP, SOB, palpitations, lightheadedness, calf pain. He is outgoing and smiling and more comfortable with the staff now and has no cough. Objective Data Objective Data Vital Signs: Vital Signs Temp Pulse Resp BP Pulse Ox O2 Del Method 98.3 F 96 14 104/61 94 Room Air 10/10/21 07:16 10/10/21 08:13 10/10/21 07:16 10/10/21 07:16 10/10/21 07:16 10/10/21 07:16 Oxygen Delivery Method Room Air Weight: 152 lb 3.2 oz Body Mass Index (BMI) 29.7 Intake & Output: Intake and Output for Last 24 Hours 10/08/21 10/09/21 10/10/21 23:59 23:59 23:59 Intake Total 1979 / 1979 920 / 1120 560 / 560 Output Total 1325 / 1325 200 / 200 Balance 655 / 655 720 / 920 560 / 560 Lab / Micro Data Result Diagrams: 10/05/21 05:00 10/05/21 05:00 Physical Exam Const Constitutional Narrative: alert, calm, sitting in the recliner when I was talking to him. Pleasant and talkative. HEENT HEENT Narrative: Mucous membranes are moist. Resp Resp Narrative: Good air change, no conversational dyspnea, no wheezes, rales or rhonchi. Breath sounds are mildly decreased in the right base but no crackles. Cardio Cardio Narrative: RRR with no MM and no rub or gallop. GI GI Narrative: Soft, nontender, nondistended, normal bowel sounds. Having regular bowel movements. No guarding with palpation. Extremity Extremity Narrative: No edema and no calf tenderness. Skin Skin Narrative: All incisions are healing and intact with no erythema and no discharge. Assessment & Plan Assessment/Plan (1) Physical debility: PLAN: Continue therapy. He is now ambulating without an AD and doing well. We are working on endurance. Reinforced with Edwin some of the physical limitations for Kelvin once he is going to day care daily again.......they will adhere to the restrictions and give Kelvin appropriate jobs where he does not have to push or Pull anything and he does not have to lift > 8 lbs. (2) Recent non-ST elevation myocardial infarction (NSTEMI): PLAN: Normal EF after the NSTEMI (3) H/O coronary artery bypass surgery: PLAN: 6 vessel bypass (4) Hyperlipemia: PLAN: This needs to be addressed. Siebel Architect will talk with Kelvin and will also provide a list of heart healthy foods to Edwin. Will give Kelvin pictures of things he should be eating because not sure he can read well and comprehend. There are multiple reasons his LFTs could be elevated. He did experience congestive heart failure post CABG which is a normal thing. He may have had liver congestion that led to the elevation of the LFTs. He also may have elevation of LFTs secondary to hepatic steatosis from high cholesterol. Another reason is he has gallbladder sludge and he could have passed a small stone. If the LFTs are normal or they are the same on Thursday we will start atorvastatin 10 mg daily and recheck a liver profile and lipid panel in 1 month. Kelvin lives in [place] and will follow-up with a dental detail representative in [place] for his care going forward. Edwin is a patient of Dr. Bowman'michelle and would like Kelvin to also see Dr. Bowman. We will schedule an appointment for him to be seen post discharge. (5) Hypertension: PLAN: Well controlled. (6) Abnormal LFTs: (7) Nonalcoholic hepatosteatosis: (8) Gallbladder sludge: PLAN: Plan 1. recheck a CMP on Thursday. If the LFT's are unchanged will restart a statin at a low dose and continue to monitor the lipids and liver tests. The abnormal LFT's may be due to hyperlipidemia with hepatic steatosis and not to the statin. LDL was 229 and he should be on a statin if he can tolerate. Charges/Coding Visit Charges Inpatient E&M: 22188 Subs Hosp L2
--- NOTE | 2021-10-10 11:18 | NURSING ---
Addendum entered by Nay Lemus 10/10/21 17:16: 2nd attempt to make F/U appt with DR Gutierrez @ 1400. no answer Original Note: attempted to make F/U appt with Dr Gutierrez-Cardio. was on hold for 20 minuets with no answer. will attempt again later.
--- NOTE | 2021-10-10 13:07 | CASEMGMT ---
Social Work IDT met with patient and Edwin, Director of [facility] and of [facility], for Team meeting. Discussed patient's progress in PT/OT/SN. Explained Medicare approved 11 days with DC 10/15. Pt agreeable to DC. Pt will return home alone and continue with [facility] day services daily. Offered HHC or OP at DC. Edwin to discuss with Gill on preference. SW to order needs at DC. Will continue to follow. oJselin Garcia, CLINICAL NURSING PROFESSOR [employer]
[2021-10-10 20:26] VITALS: BP 110/68; PULSE 96; RESP 18; TEMP 36.4; O2SAT 98
[2021-10-10 20:27] VITALS: RESP 18
--- NOTE | 2021-10-10 20:53 | NURSING ---
PT HAVING A PERSISTENT COUGH, LUNGS CLEAR, GIVEN AND INSTRUCTED ON THE IMPORTANCE OF THE I.S., USING IT WELL
[2021-10-10 21:59] VITALS: BP 110/68; PULSE 97
[2021-10-11] MEDS: Enoxaparin 40 MG/0.4 ML Syringe SC (06:07)
[2021-10-11] MEDS: guaiFENesin Dm 10 ML UDC 5 ML PO ×2 (06:08→20:16)
[2021-10-11] MEDS: Acetaminophen 325 MG Tablet 650 MG PO (06:11)
[2021-10-11 07:44] VITALS: BP 115/68; PULSE 91; RESP 16; TEMP 36.6; O2SAT 98
[2021-10-11] MEDS: Aspirin 81 MG TAB.CHEW 162 MG PO (07:56)
[2021-10-11] MEDS: Multivitamins,Therapeutic Tablet 1 TABLET PO (07:56)
[2021-10-11] MEDS: Loratadine 10 MG Tablet PO (07:56)
[2021-10-11] MEDS: Ipratropium Bromide 0.06% NASAL SPRAY 2 SPRAY NASAL ×2 (07:56→20:13)
[2021-10-11] MEDS: Pantoprazole Sodium 40 MG Tablet PO (07:56)
[2021-10-11] MEDS: amLODIPine 2.5 MG Tablet PO (07:56)
[2021-10-11 07:57] VITALS: PULSE 91
[2021-10-11] MEDS: Metoprolol Tartrate 25 MG Tablet 12.5 MG PO ×2 (07:57→20:14)
[2021-10-11] MEDS: Colchicine 0.6 MG TABLET PO (07:58)
[2021-10-11 20:13] VITALS: BP 110/61; PULSE 92; RESP 16; TEMP 36.6; O2SAT 99
[2021-10-11 20:14] VITALS: BP 110/61; PULSE 92
[2021-10-12] MEDS: Enoxaparin 40 MG/0.4 ML Syringe SC (06:02)
[2021-10-12] MEDS: guaiFENesin Dm 10 ML UDC 5 ML PO ×2 (06:06→21:25)
[2021-10-12] MEDS: Aspirin 81 MG TAB.CHEW 162 MG PO (08:54)
[2021-10-12] MEDS: Multivitamins,Therapeutic Tablet 1 TABLET PO (08:54)
[2021-10-12] MEDS: Ipratropium Bromide 0.06% NASAL SPRAY 2 SPRAY NASAL ×2 (08:54→21:24)
[2021-10-12 08:55] VITALS: PULSE 92
[2021-10-12] MEDS: amLODIPine 2.5 MG Tablet PO (08:55)
[2021-10-12] MEDS: Metoprolol Tartrate 25 MG Tablet 12.5 MG PO ×2 (08:55→21:25)
[2021-10-12] MEDS: Loratadine 10 MG Tablet PO (08:55)
[2021-10-12] MEDS: Colchicine 0.6 MG TABLET PO (08:55)
[2021-10-12] MEDS: Pantoprazole Sodium 40 MG Tablet PO (08:55)
[2021-10-12 10:00] VITALS: BP 125/77; PULSE 105; RESP 18; TEMP 36.7; O2SAT 100
[2021-10-12 19:16] VITALS: BP 107/67; PULSE 90; RESP 18; TEMP 36.7; O2SAT 100
[2021-10-12 21:25] VITALS: PULSE 98
[2021-10-12 22:00] VITALS: PULSE 98; RESP 16; O2SAT 100
[2021-10-13] MEDS: guaiFENesin Dm 10 ML UDC 5 ML PO ×2 (04:22→19:55)
[2021-10-13] MEDS: Enoxaparin 40 MG/0.4 ML Syringe SC (04:54)
[2021-10-13 05:31] LABS: Hematocrit 34.5 % (40-54); Hemoglobin 11.2 g/dL (13.0-16.5)
[2021-10-13 06:04] LABS: ALB/GLOB Ratio 0.8 RATIO (0.9-2.4); AST(SGOT) 33 U/L (15-37); Alanine Aminotransfer ALT/SGPT 91 U/L (16-61); Alkaline Phosphatase 228 U/L (45-117); Anion Gap 7 (5-15); BUN 19 mg/dL (7-18); Calcium,Total 8.8 mg/dL (8.5-10.1); Chloride 106 mmol/L (98-107); Creatinine, Serum 0.76 mg/dL (0.70-1.30); EST Glomerular Filtration Rate 115 mL/min (>60); Est Glom Filt Rate - Afr Amer 140 mL/min (>60); Globulin 3.9 g/dL (2.2-4.2); Glucose 87 mg/dL (74-106); Protein, Total 6.9 g/dL (6.4-8.2); Sodium Level 136 mmol/L (136-145)
[2021-10-13 07:00] VITALS: BP 106/65; PULSE 96; RESP 18; TEMP 37; O2SAT 96
[2021-10-13 09:33] VITALS: BP 112/65; PULSE 92
[2021-10-13] MEDS: Pantoprazole Sodium 40 MG Tablet PO (09:33)
[2021-10-13] MEDS: Metoprolol Tartrate 25 MG Tablet 12.5 MG PO ×2 (09:33→19:52)
[2021-10-13] MEDS: Loratadine 10 MG Tablet PO (09:34)
[2021-10-13] MEDS: amLODIPine 2.5 MG Tablet PO (09:34)
[2021-10-13] MEDS: Multivitamins,Therapeutic Tablet 1 TABLET PO (09:34)
[2021-10-13] MEDS: Aspirin 81 MG TAB.CHEW 162 MG PO (09:34)
[2021-10-13] MEDS: Colchicine 0.6 MG TABLET PO (09:35)
[2021-10-13] MEDS: Ipratropium Bromide 0.06% NASAL SPRAY 2 SPRAY NASAL ×2 (09:35→19:51)
[2021-10-13] MEDS: Acetaminophen 325 MG Tablet 650 MG PO (18:59)
[2021-10-13 19:15] VITALS: BP 108/69; PULSE 89; RESP 17; TEMP 36.7; O2SAT 100
[2021-10-13 19:36] VITALS: PULSE 89; RESP 16; O2SAT 100
[2021-10-13 19:52] VITALS: PULSE 89
[2021-10-14] MEDS: guaiFENesin Dm 10 ML UDC 5 ML PO ×3 (06:24→20:25)
[2021-10-14] MEDS: Enoxaparin 40 MG/0.4 ML Syringe SC (06:25)
[2021-10-14 07:37] VITALS: BP 122/81; PULSE 103; RESP 18; TEMP 36.9; O2SAT 97
[2021-10-14 07:52] VITALS: BP 122/81; PULSE 103
[2021-10-14] MEDS: Metoprolol Tartrate 25 MG Tablet 12.5 MG PO ×2 (07:52→20:25)
[2021-10-14] MEDS: Ipratropium Bromide 0.06% NASAL SPRAY 2 SPRAY NASAL ×2 (07:52→20:24)
[2021-10-14] MEDS: Loratadine 10 MG Tablet PO (07:52)
[2021-10-14] MEDS: Pantoprazole Sodium 40 MG Tablet PO (07:52)
[2021-10-14] MEDS: amLODIPine 2.5 MG Tablet PO (07:52)
[2021-10-14] MEDS: Multivitamins,Therapeutic Tablet 1 TABLET PO (07:52)
[2021-10-14] MEDS: Aspirin 81 MG TAB.CHEW 162 MG PO (07:52)
[2021-10-14] MEDS: Colchicine 0.6 MG TABLET PO (10:02)
--- NOTE | 2021-10-14 16:46 | PCM.PROGNOTE ---
Subjective Subjective Afebrile VSS Maintaining appropriate oxygen saturation on RA Oral intake is good Discussed with nursing - no problems that need addressed Reviewed the PT/OT notes - doing very well and is now walking without an AD. Medication list reviewed. Kelvin denies chest pain, shortness of breath, palpitations, lightheadedness, orthopnea, dyspnea on exertion, dysuria, nausea. Objective Data Objective Data Vital Signs: Vital Signs Temp Pulse Resp BP Pulse Ox O2 Del Method 98.5 F 103 H 18 122/81 H 97 Room Air 10/14/21 07:37 10/14/21 07:52 10/14/21 07:37 10/14/21 07:52 10/14/21 07:37 10/14/21 07:37 Oxygen Delivery Method Room Air Weight: 152 lb 1.903 oz Body Mass Index (BMI) 29.7 Intake & Output: Intake and Output for Last 24 Hours 10/12/21 10/13/21 10/14/21 23:59 23:59 23:59 Intake Total 120 / 120 930 / 930 720 / 720 Output Total 1400 / 1400 1500 / 1500 200 / 200 Balance -1280 / -1280 -570 / -570 520 / 520 Lab / Micro Data Result Diagrams: 10/13/21 04:17 10/13/21 04:17 Physical Exam Const alert and no apparent distress General Appearance: cooperative Resp normal respiratory effort, normal air movement and clear to auscultation bilaterally Cardio regular rate, regular rhythm, S1 normal heart sound, S2 normal heart sound, no murmurs, no rub and no gallops Cardio Narrative: resting HR is a little high yet but still < 100 and he denies lightheadedness, SOB and GOSS. GI normal to inspection, nondistended, normoactive bowel sounds, soft to palpation and non-tender Extremity normal capillary refill and no calf tenderness General Extremity: Negative for edema Skin General Skin Exam: no breakdown Rashes: no rashes Wound Narrative: The sternal incision is healing well and there is no dehiscence, no erythema and no purulent DC. Neuro CN's II-XII intact bilaterally, no focal motor deficits and no sensory deficits noted Gait (Neuro): normal gait Psych cooperative and affect normal Psych Narrative: He is calm and talkative and comfortable with talking with any of the staff now. Appearance: appropriate Assessment & Plan Assessment/Plan (1) Physical debility: PLAN: Plan DC home tomorrow. Will continue with [facility] services daily. (2) Non-STEMI (non-ST elevated myocardial infarction): (3) H/O coronary artery bypass surgery: PLAN: Healing well with no sign infection. (4) Nonalcoholic hepatosteatosis: (5) Abnormal LFTs: PLAN: Still mildly abnormal on recheck. Bilirubin and AST are now normal but the AP and ALT are still mildly elevated. With the CAD, CABG and hepatosteatosis I think he should be on a statin. Will start Lipitor 10 mg Q HS and recommend LIVER and lipid panels in 1 month post DC. (6) Cognitive developmental delay: Charges/Coding Visit Charges Inpatient E&M: 77334 Subs Hosp L2
--- NOTE | 2021-10-14 17:19 | NURSING ---
attempted several times throughout the day to schedule F/U appt with cardiovascular Dr Gutierrez. no answer. also attempted to reach office by calling the hospital, they transferred us to the office with no answer. sent a fax to the office asking them to call us to set up appt. no call received.
[2021-10-14 19:21] VITALS: BP 116/67; PULSE 98; RESP 18; TEMP 36.7; O2SAT 100
[2021-10-14 20:25] VITALS: PULSE 64
[2021-10-14 22:00] VITALS: PULSE 98; RESP 17; O2SAT 100
[2021-10-15] MEDS: Enoxaparin 40 MG/0.4 ML Syringe SC (06:22)
[2021-10-15] MEDS: guaiFENesin Dm 10 ML UDC 5 ML PO ×2 (06:36→12:33)
[2021-10-15 07:10] VITALS: BP 106/59; PULSE 97; RESP 18; TEMP 37.2; O2SAT 97
[2021-10-15 07:46] VITALS: BP 106/59; PULSE 97
[2021-10-15] MEDS: Metoprolol Tartrate 25 MG Tablet 12.5 MG PO (07:46)
[2021-10-15] MEDS: Colchicine 0.6 MG TABLET PO (07:47)
[2021-10-15] MEDS: Ipratropium Bromide 0.06% NASAL SPRAY 2 SPRAY NASAL (07:47)
[2021-10-15] MEDS: Loratadine 10 MG Tablet PO (07:47)
[2021-10-15] MEDS: Multivitamins,Therapeutic Tablet 1 TABLET PO (07:47)
[2021-10-15] MEDS: amLODIPine 2.5 MG Tablet PO (07:47)
[2021-10-15] MEDS: Pantoprazole Sodium 40 MG Tablet PO (07:47)
[2021-10-15] MEDS: Aspirin 81 MG TAB.CHEW 162 MG PO (07:47)
--- NOTE | 2021-10-15 10:30 | PCM.DC ---
Discharge Instructions Diet Discharge Diet: - (Low fat and low salt. No deep fried foods. Baked, broiled or steamed. Lots of vegetables, whole grains and fruit. Skinless chicken, Tofu and fish are good. Red meat no more than 2 times a week. ) Activity Discharge Activity: May Not Drive, May Shower and - (Do not lift more than 5 lbs for the next 3 months. Do not pull with your arms. Talk a walk every day and work up to taking a 30 minute walk. Do not take any medications that are not on your med list given to you at the time of discharge from rehab. Shower every day. ) Weight Bearing Status: Full weight bearing Keep extremity elevated above heart level: Legs Dressing / Incision Call your doctor if your incision/area has: Continuous Slow Oozing, Sudden Increased Bleeding, Increased Pain/ Swelling, Increased Redness, Foul Smelling Discharge and Swelling at the incision site Call your doctor if you observe: Fever of 101 or Higher, Shortness of breath, Dizziness, Fainting spells, Swelling in the ankles, Chest pain, Increased palpitations (irregular heartbeat) and Calf discomfort Suture Line Care: Avoid Pulling/Pushing and Avoid Pinching/Bending Cleanse incision/area with: Soap & Water and - (Shower daily to clean the incision with soap and water. No swimming or bathing. ) Additional Dressing/Incision Instructions:: No dressing is needed on the incision. IF for some reason the incision starts to drain or open up apply a dry dressing and call the cardiothoracic surgeon. Follow Up Care Please Follow Up With: Bertin Feliz MD When: 1-2 weeks. Test Results: Test results from this visit will be discussed in further detail at your follow-up appointment, if applicable. Pending Tests Upon Discharge: none Discharge Plan Admission Admit Date/Time: 10/04/21 16:57 Primary Reason for Your Visit: Debility due to NSTEMI and CABG. Attending Provider: Christina Belle Primary Care Provider: Bertin Feliz Instructions Patient Instructions: DASH Plan Eat Heart Healthy Food, Eating Heart-Healthy Foods Additional Instructions / Restrictions: 1. You will need to follow up regularly with a die tripper from now on. There is a good cardiology group at the hospital called [facility]. We made you an appt to follow up with Dr. Bowman in a couple weeks. 2. You also need to follow up with the cardiothoracic surgeon who did your surgery and with Dr. Feliz. 3. Do not take any medications other than what is on the list of medications you were given at discharge from rehab. This includes Vitamins ad any herbal medications. 4. Follow the sternal precautions for at least 3 months from the date of the surgery. a. Do NOT lift more than 8 lbs (this is roughly the weight of a gallon of milk. b. Do not pull with your arms. c. Shower daily and cleanse the incision with soap and water. d. No swimming or bathing in a bath tub. e. IF you notice any drainage from the incision call the cardiothoracic surgeon. f. Do NOT use any creams or lotions on the incision. JUST SOAP AND WATER. 5. EXERCISE is very important to healing and also to preventing any other heart issues in the future. Work up to walking 30 minutes a day at least 6 days a week. 6. I wrote you prescription for nitroglycerin tablets. You will take this medication ONLY if you have chest pain and you should keep it with you at all times. IF you get chest pain and it feels like there is an elephant sitting on your chest and you are sweaty and short of breath the first thing you need to do is sit down. Then put a nitro tab under your tongue and wait 5 minutes. If you still have chest pain put a second nitro under your tongue and ask someone to call 911. If after another 5 minutes you still have chest pain you can take a third tab of Nitro. NO MORE THAN 3 TABS. NITRO CAN MAKE YOU DIZZY AND THAT IS WHY YOU MUST SIT DOWN TO TAKE IT. 7. Take care Kelvin. Everyone in rehab has enjoyed having you around. Stop by some time if you are in the hospital and let us know how you are doing. If you have any questions after you leave rehab please call me at: OFFICE: [phone] CELL: [phone]. Discharge Orders/Prescriptions Prescriptions: New acetaminophen [Tylenol] 325 mg Tablet 650 mg PO Q6H PRN PRN (Reason: Pain Score 1-10) Qty: 1 0RF dextromethorphan-guaifenesin 10-100 mg/5 mL Syrup 5 ml PO Q6H PRN PRN (Reason: COUGH) Qty: 237 0RF atorvastatin [Lipitor] 10 mg tablet 10 mg PO QHS Qty: 30 0RF nitroglycerin [Nitrostat] 0.4 mg tablet, sublingual 0.4 mg sublingual Q5M PRN (Reason: chest pain) Qty: 1 0RF Rx Instructions: do not exceed 3 doses per episode Continued multivitamin Tablet 1 tab PO DAILY amlodipine 2.5 mg Tablet 2.5 mg PO DAILY Qty: 30 0RF pantoprazole [Protonix] 40 mg Tablet,Delayed Release (Dr/Ec) 40 mg PO DAILY Qty: 30 0RF aspirin 81 mg Tablet,Chewable 162 mg PO DAILY Qty: 60 0RF colchicine 0.6 mg Tablet 0.6 mg PO DAILY Qty: 30 0RF fluticasone propionate 50 mcg/actuation [place],Suspension 2 spray INTRANASAL DAILY Qty: 1 0RF Rx Instructions: administer into each nostril metoprolol tartrate 25 mg Tablet 12.5 mg PO BID Qty: 30 0RF Zyrtec 10 MG capsule 10 mg PO DAILY Qty: 30 0RF Discontinued ipratropium-albuterol [DuoNeb] 0.5 mg-3 mg(2.5 mg base)/3 mL Solution For Nebulization 3 ml INHALATION Q4H PRN (Reason: sob) albuterol sulfate 2.5 mg /3 mL (0.083 %) Solution For Nebulization 2.5 mg INHALATION Q2H PRN (Reason: Shortness Of Breath Or Wheezing) Referrals / Follow Up: Dr Ludwig Gutierrez-Cardiology [Other] (surgeon ) Jorge Bowman MD [Med Staff - Active Staff] - 10/31/21 1:30 pm Bertin Feliz MD [Primary Care Provider] - 10/18/21 1:40 pm Disposition Disposition (needs filled in before D/C Order can be placed): Home, Self Care
--- NOTE | 2021-10-15 11:49 | PCM.DC.SUM ---
Providers Date of Admission: 10/04/21 Date of Discharge: 10/15/21 Primary Care Physician: Dr. Bertin Feliz MD Reason For Visit: DEBILITY/ WEAKNESS DUE TO NSTEMI/CABG Diagnosis Discharge Diagnosis (1) Physical debility: Status: Acute Code(s): R53.81 - Other malaise (2) Non-STEMI (non-ST elevated myocardial infarction): Status: Acute Code(s): I21.4 - Non-ST elevation (NSTEMI) myocardial infarction Plan: 09/21/21 (3) H/O coronary artery bypass surgery: Status: Acute Code(s): Z95.1 - Presence of aortocoronary bypass graft Plan: 09/26/[address] [facility] by Dr. Gutierrez X 6 bypasses. (4) Nonalcoholic hepatosteatosis: Status: Acute Code(s): K76.0 - Fatty (change of) liver, not elsewhere classified Plan: Determined by Liver US at [facility]. Also with GB sludge. (5) Abnormal LFTs: Status: Acute Code(s): R79.89 - Other specified abnormal findings of blood chemistry Plan: Mildly elevated ALT and AP at DC from rehab. Started on Lipitor 10 mg and needs a follow up Liver panel and lipid panel in 4-6 weeks. Etiology undetermined. May be due to hepatosteatosis. (6) Cognitive developmental delay: Status: Acute Code(s): F81.9 - Developmental disorder of scholastic skills, unspecified Plan: More likely than not secondary to history of neurofibromatosis. (7) Cough: Status: Acute Code(s): R05.9 - Cough, unspecified Plan: dry. Lungs are CTA, no peripheral edema. Not on an TONNY or a ARB. Cough occurs often when he is anxious. (8) Essential hypertension: Status: Chronic Code(s): I10 - Essential (primary) hypertension Plan: Well controlled. (9) Hyperlipemia: Status: Acute Code(s): E78.5 - Hyperlipidemia, unspecified Plan: Lipitor 10 mg Q HS started on 10/15/21. (10) Left anterior hemiblock: Status: Acute Code(s): I44.4 - Left anterior fascicular block (11) Nicotine dependence: Status: Chronic Code(s): F17.200 - Nicotine dependence, unspecified, uncomplicated Plan: Chewing tobacco. Cessation advised and counselling given while in rehab. (12) Gallbladder sludge: Status: Acute Code(s): K82.8 - Other specified diseases of gallbladder Plan: An incidental finding on liver US at [facility] (13) GERD (gastroesophageal reflux disease): Status: Acute Code(s): K21.9 - Gastro-esophageal reflux disease without esophagitis Plan: Controlled with Protonix. (14) Neurofibromatosis: Status: Acute Code(s): Q85.00 - Neurofibromatosis, unspecified Plan DC home today. Will follow up with Dr. Feliz, Dr. Bowman and Dr. Gutierrez (cardiothoracic surgery). Medications at Discharge Home Medications multivitamin 1 tab PO DAILY vitamin 10/04/21 acetaminophen 325 mg tablet (Tylenol) 650 mg PO Q6H PRN PRN Pain Score 1-10 #1 TAB 10/15/21 amlodipine 2.5 mg tablet 2.5 mg PO DAILY bp #30 tabs 10/15/21 aspirin 81 mg chewable tablet 162 mg PO DAILY heart #60 tabs 10/15/21 atorvastatin 10 mg tablet (Lipitor) 10 mg PO QHS #30 tabs 10/15/21 cetirizine 10 mg capsule (Zyrtec) 10 mg PO DAILY #30 caps 10/15/21 colchicine 0.6 mg tablet 0.6 mg PO DAILY gout #30 tabs 10/15/21 dextromethorphan-guaifenesin 10 mg-100 mg/5 mL oral syrup 5 ml PO Q6H PRN PRN COUGH #237 mL 10/15/21 fluticasone propionate 50 mcg/actuation nasal spray,suspension 2 spray intranasal DAILY allergies #1 g 10/15/21 metoprolol tartrate 25 mg tablet 12.5 mg PO BID bp #30 tabs 10/15/21 nitroglycerin 0.4 mg sublingual tablet (Nitrostat) 0.4 mg sublingual Q5M PRN chest pain #1 BOTTLE 10/15/21 pantoprazole 40 mg tablet,delayed release (Protonix) 40 mg PO DAILY gerd #30 tabs 10/15/21 Hospital Course Operations - (CABG x6 on 09/26/[address] [facility] by Dr. Kourlis.) Procedures None Summary of Care Provided Minutes Spent on Discharge: 40 Hospital Course: KELVIN SCHWARTZ, is a 51 YO M with a PMH of Depression, anxiety, HTN, HLD, allergic rhinitis, nephrolithiasis, neurofibromatosis, asthma, developmental delay, GERD and oral nicotine dependence who presented to [facility] ED on 09/21/21 c/o? sudden onset retrosternal CP at 5 AM and had been present for 3 hours prior to coming to the ED. EKG showed a anterior hemiblock with possible? inferior infarct, age undetermined.? The first HS troponin was normal but the second was elevated at 185.? Chest x-ray was normal.? He was admitted to the hospitalist service and ECHO and cardiology consult were ordered.? Follow up troponins were #3, 1469 and the 4th was 3361.? The echocardiogram showed a left ventricular ejection fraction of 60% with no regional wall motion abnormalities.? There was +1 mitral regurgitation and normal diastology for age. ?? ? Dr. Renae saw the patient in consult and recommended coronary angiography.? He also agreed with keeping the patient on aspirin, Brilinta, statin, intravenous heparin infusion and a beta-ángel.? Coronary angiography revealed severe triple-vessel disease and the bessemer converter blower recommended transferring the patient for consideration for coronary artery bypass grafting.? He was transferred to [facility] in [place] on 09/23/21 and underwent CABG X 6 on 09/26/[address] Gutierrez.? Post operatively he was transfused with 2 units of PRBC's.? Liver enzymes were persistently elevated.? Statin was discontinued due to the elevated liver tests.? He was transferred to the inpt acute rehab unit at [facility] on 10/04/21 for 3 hours of therapy daily to restore function at or near his prior level of function. ? ? Lab at admission to rehab revealed a low HGB at 10.0 due to acute blood loss. Prior to DC it has risen to 11.2. LFTs at admission to rehab were bilirubin 1.3, AST 54, ALT 95 and alkaline phosphatase 224. Prior to discharge the bilirubin was down to 0.4 and the AST down to 33, both of which are normal. ALT remains mildly elevated at 91 and the alkaline phosphatase is stable at 228. Total cholesterol is 296 with an LDL of 229 and an HDL of 42. Triglycerides are within normal limits. A right upper quadrant ultrasound was done at [facility] and showed hepatic steatosis and gallbladder sludge. He has no N/V/RUQ pain. Kelvin did very well in therapy. Initially he was quite anxious and when he gets anxious he coughs. After he got to know the staff the cough lessened considerably. His lungs have been consistently CTA and he has had no gallop and no ankle edema. He is not on an TONNY or an ARB. He was treated with Robitussin DM. Prior to DC Kelvin was ambulating with no AD. He is able to complete transfers from various surfaces at mod I now. He can ascend/descend a curb step at mod I without an assistive device with no loss of balance. He has ambulated up to 1000 feet outdoors on uneven surfaces with no loss of balance at mod I with no assistive device and no rest break required. He is independent with all ADL's. Kelvin lives alone but, he is at the [facility] day services daily and the director, Edwin and his Gill look after Kelvin's needs and will be helping when Kelvin goes home. They are very involved with Kelvin and Edwin attended the TEAM meetings while Kelvin was in rehab. Kelvin was discharged on 10/15/21. He has a follow up appt with Dr. Bowman and with Dr. Feliz arranged by nursing prior to his DC. At the time of DC we are still trying to arrange an appt with Dr. Gutierrez but, have been unsuccessful in getting through to his office. Kelvin will have OP PT/OT at [facility] and I presume he will also have cardiac rehab arranged by Dr. Bowman. Physical Exam Const alert and no apparent distress Constitutional Narrative: Not coughing. Calm, makes good eye contact, appears to be in no distress. General Appearance: cooperative HEENT normocephalic, head/scalp atraumatic and moist oral mucous membranes Eyes PERRL and EOMs intact bilaterally Eyes Narrative: No scleral icterus and no conjunctival injection. No DC from the eyes and no mattering of the eyelids. Neck no lymphadenopathy, supple, no JVD and no carotid bruits Resp normal respiratory effort, normal air movement and clear to auscultation bilaterally Resp Narrative: Able to speak in full sentences with no conversational dyspnea. Effort and Inspection: Negative for tachypneic Cardio regular rate, regular rhythm, S1 normal heart sound, S2 normal heart sound, no murmurs, no rub and no gallops Cardio Narrative: Resting HR is a little high yet but still < 100 and he denies lightheadedness, SOB and GOSS. No ectopy. GI normal to inspection, nondistended, normoactive bowel sounds, soft to palpation and non-tender GI Narrative: No guarding with palpation. Extremity normal capillary refill and no calf tenderness General Extremity: Negative for edema Skin General Skin Exam: no breakdown Rashes: no rashes Wound Narrative: The sternal incision is healing well and there is no dehiscence, no erythema and no purulent DC. Neuro CN's II-XII intact bilaterally, no focal motor deficits and no sensory deficits noted Gait (Neuro): normal gait Psych cooperative and affect normal Psych Narrative: He is calm and talkative and comfortable with talking with any of the staff now. Appearance: appropriate Activity / Motor Behavior: Negative for restless Mood & Affect: Negative for depressed Thought Content: No suicidality, No homicidality, No delusion(s) and No hallucination(s) Weight / BMI Weight Weight: 149 lb 14.629 oz Body Mass Index (BMI) 29.7 ABG / Lab / Microbiology Data Result Diagrams: 10/13/21 04:17 10/13/21 04:17 D/C Instructions Discharge Diet: - (Low fat and low salt. No deep fried foods. Baked, broiled or steamed. Lots of vegetables, whole grains and fruit. Skinless chicken, Tofu and fish are good. Red meat no more than 2 times a week. ) Weight Bearing Status: Full weight bearing Keep extremity elevated above heart level: Legs Call your doctor if your incision/area has: Continuous Slow Oozing, Sudden Increased Bleeding, Increased Pain/ Swelling, Increased Redness, Foul Smelling Discharge and Swelling at the incision site Call your doctor if you observe: Fever of 101 or Higher, Shortness of breath, Dizziness, Fainting spells, Swelling in the ankles, Chest pain, Increased palpitations (irregular heartbeat) and Calf discomfort Suture Line Care: Avoid Pulling/Pushing and Avoid Pinching/Bending Cleanse incision/area with: Soap & Water and - (Shower daily to clean the incision with soap and water. No swimming or bathing. ) Additional Dressing/Incision Instructions: No dressing is needed on the incision. IF for some reason the incision starts to drain or open up apply a dry dressing and call the cardiothoracic surgeon. Pending Tests Upon Discharge: none Please Follow Up With: Bertin Feliz MD When: 1-2 weeks. Meaningful Use Info Meaningful Use Diagnoses (Choose all that apply): AMI AMI/Post PCI/Angioplasty Aspirin given w/in 24hrs of arrival?: Yes ASA at discharge?: Yes Antiplatelet Therapy at Discharge:: Yes Statins at discharge?: Yes Tonny/ARB at discharge?: No Reason Tonny/ARB not ordered:: Not indicated Beta Ángel at discharge?: Yes Done w/ Acute CA measure.: Yes Documented LVEF (%): 60 Discharge Plan Admission Admit Date/Time: 10/04/21 16:57 Primary Reason for Your Visit: Debility due to NSTEMI and CABG. Attending Provider: Christina Belle Primary Care Provider: Bertin Feliz Instructions Patient Instructions: DASH Plan Eat Heart Healthy Food, Eating Heart-Healthy Foods Additional Instructions / Restrictions: 1. You will need to follow up regularly with a bessemer converter blower from now on. There is a good cardiology group at the hospital called the [facility]. We made you an appt to follow up with Dr. Bowman in a couple weeks. 2. You also need to follow up with the cardiothoracic surgeon who did your surgery and with Dr. Feliz. 3. Do not take any medications other than what is on the list of medications you were given at discharge from rehab. This includes Vitamins ad any herbal medications. 4. Follow the sternal precautions for at least 3 months from the date of the surgery. a. Do NOT lift more than 8 lbs (this is roughly the weight of a gallon of milk. b. Do not pull with your arms. c. Shower daily and cleanse the incision with soap and water. d. No swimming or bathing in a bath tub. e. IF you notice any drainage from the incision call the cardiothoracic surgeon. f. Do NOT use any creams or lotions on the incision. JUST SOAP AND WATER. 5. EXERCISE is very important to healing and also to preventing any other heart issues in the future. Work up to walking 30 minutes a day at least 6 days a week. 6. I wrote you prescription for nitroglycerin tablets. You will take this medication ONLY if you have chest pain and you should keep it with you at all times. IF you get chest pain and it feels like there is an elephant sitting on your chest and you are sweaty and short of breath the first thing you need to do is sit down. Then put a nitro tab under your tongue and wait 5 minutes. If you still have chest pain put a second nitro under your tongue and ask someone to call 911. If after another 5 minutes you still have chest pain you can take a third tab of Nitro. NO MORE THAN 3 TABS. NITRO CAN MAKE YOU DIZZY AND THAT IS WHY YOU MUST SIT DOWN TO TAKE IT. 7. Take care Kelvin. Everyone in rehab has enjoyed having you around. Stop by some time if you are in the hospital and let us know how you are doing. If you have any questions after you leave rehab please call me at: OFFICE: [phone] CELL: [phone]. Discharge Orders/Prescriptions Prescriptions: New acetaminophen [Tylenol] 325 mg Tablet 650 mg PO Q6H PRN PRN (Reason: Pain Score 1-10) Qty: 1 0RF dextromethorphan-guaifenesin 10-100 mg/5 mL Syrup 5 ml PO Q6H PRN PRN (Reason: COUGH) Qty: 237 0RF atorvastatin [Lipitor] 10 mg tablet 10 mg PO QHS Qty: 30 0RF nitroglycerin [Nitrostat] 0.4 mg tablet, sublingual 0.4 mg sublingual Q5M PRN (Reason: chest pain) Qty: 1 0RF Rx Instructions: do not exceed 3 doses per episode Continued multivitamin Tablet 1 tab PO DAILY amlodipine 2.5 mg Tablet 2.5 mg PO DAILY Qty: 30 0RF pantoprazole [Protonix] 40 mg Tablet,Delayed Release (Dr/Ec) 40 mg PO DAILY Qty: 30 0RF aspirin 81 mg Tablet,Chewable 162 mg PO DAILY Qty: 60 0RF colchicine 0.6 mg Tablet 0.6 mg PO DAILY Qty: 30 0RF fluticasone propionate 50 mcg/actuation [place],Suspension 2 spray INTRANASAL DAILY Qty: 1 0RF Rx Instructions: administer into each nostril metoprolol tartrate 25 mg Tablet 12.5 mg PO BID Qty: 30 0RF Zyrtec 10 MG capsule 10 mg PO DAILY Qty: 30 0RF Discontinued ipratropium-albuterol [DuoNeb] 0.5 mg-3 mg(2.5 mg base)/3 mL Solution For Nebulization 3 ml INHALATION Q4H PRN (Reason: sob) albuterol sulfate 2.5 mg /3 mL (0.083 %) Solution For Nebulization 2.5 mg INHALATION Q2H PRN (Reason: Shortness Of Breath Or Wheezing) Referrals / Follow Up: Dr Ludwig Gutierrez-Cardiology [Other] (surgeon We have made several attempts to call the office to schedule your appointment. We have not been able to get the office on the phone. You will need to call and try to schedule your follow up appointment ) Jorge Bowman MD [Med Staff - Active Staff] - 10/31/21 1:30 pm Bertin Feliz MD [Primary Care Provider] - 10/18/21 1:40 pm Disposition Disposition (needs filled in before D/C Order can be placed): Home, Self Care Charges/Coding Visit Charges Inpatient E&M: 67988 Disch Hosp
--- NOTE | 2021-10-15 11:51 | NURSING ---
attempted to get a hold of Dr Gutierrez office to schedule pt f/u appointment. Will instruct pt and his caregiver to call and make appointment
[2021-10-15 13:13] VITALS: BP 106/59; PULSE 97; RESP 18; TEMP 37.2; O2SAT 97
--- NOTE | 2021-10-15 13:15 | NURSING ---
discharged home with caregiver. discharge instructions, medication and appointments reviewed with pt and caregiver. denies questions concerns.
== END 2021-10-15 13:16 | disposition home or self-care (01) | DRG 949 ==
PROVIDERS: Admitting Provider Internal Medicine; PCP Internal Medicine; Visit Provider Internal Medicine
DX: Z48.812 Encounter for surgical aftercare following surgery on the circulatory system (principal); I21.4 Non-ST elevation (NSTEMI) myocardial infarction; K75.81 Nonalcoholic steatohepatitis (NASH); Q85.00 Neurofibromatosis, unspecified; K76.0 Fatty (change of) liver, not elsewhere classified; I25.10 Atherosclerotic heart disease of native coronary artery without angina pectoris; E78.5 Hyperlipidemia, unspecified; I44.4 Left anterior fascicular block; K21.9 Gastro-esophageal reflux disease without esophagitis; I65.21 Occlusion and stenosis of right carotid artery; I10 Essential (primary) hypertension; F17.220 Nicotine dependence, chewing tobacco, uncomplicated; F81.89 Other developmental disorders of scholastic skills; F88 Other disorders of psychological development; Z95.1 Presence of aortocoronary bypass graft; Z79.899 Other long term (current) drug therapy; Z79.82 Long term (current) use of aspirin
CPT/HCPCS: 36415; 80053; 83735; 84100; 85014; 85018; 85027; 97110; 97112; 97116; 97162; 97165; 97530; 97535; 97802; 97803; 99251; G0463

== ENCOUNTER 2021-10-22 12:08 | Outpatient (RCR) | payer MEDICARE, MEDICAID, SELFPAY ==
--- NOTE | 2021-10-22 13:11 | HP.PTEVAL_ITS ---
Patient's Visit Information CATHERINE SCHWARTZ III is a 51 year old M referred to Physical Therapy by Dr. Christina Belle DO with a diagnosis of CABG/DEBILITY. Date of Evaluation: 10/22/21 Physical Therapist: Nhi Woodard PT, Cert MDT - Visit Plan Plan: PT EVAL ONLY - Subjective Disability: ADULT WITH DEVELOPMENTAL DISABILITIES. GOES TO ADULT DAY SERVICES 25 HOURS A WEEK. LIVES ALONE IN AN [place] WITHOUT ANY STEPS. CURRENTLY LIVING WITH FATHER IN [place] FOR A FEW WEEKS AND THEY ARE RENOVATING HIS K[place]IN'[place]. HIS AGENCY PROVIDER/REVENUE CYCLE ANALYST IS WITH HIM THROUGHOUT PT SESSION TODAY. Present symptoms: FATIGUE. PATIENT DENIES PAIN. Present since: SEPTEMBER 22 2021 - HEART ATTACK. CABG PROCEEDURE 09/26/21 AT [facility] (11/07/21 WILL BE 6 WKS PO). Coughing/sneezing/straining: PATIENT REPORTS HE DOES GET PAIN WITH COUGH 4/10 BUT THEN GOES AWAY. Gait: NO FALLS. REPORTS HE IS GETTING AROUND NOW LIKE HE DID BEFORE SURGERY AND ONCOLOGY PHARMACIST AGREES. JUST GETS FATIGUED MORE QUICKLY. GOES UP STEPS TO GET ON BUS ABOUT 8 AM AND COMES HOME 3 PM. PMH/Recent major surgery: HIGH CHOLESTEROL, INCREASED LIVER ENZYMES, MILD DEVELOPMENTAL DISABLILITY, GERD, HTN, DEPRESSION, ANXIETY, AND Neurofibromatosis. PLOF (Prior Level of Function): UNLIMITED. OTHER: 2 WEEKS OF REHAB ON 4TH FLOOR AT [facility] AFTER CABG (6) WITH D/C HOME 10/08/21. PATIENT'S CAREGIVER REPORTS THAT HE IS FUNCTIONING NORMALLY AND THEY ARE NOT SURE WHY HE IS HERE. THEY HAVE STAIRS AND RAMPS AT THEIR FACILITY THAT HE IS MANAGING FINE BUT HE DOES FATIGUE. NOT HAVING PROBLEMS SHOWERING OR DOING HIS NORMAL ACTIVITIES AT HOME. CURRENTLY ALLOWING STERNUM TO HEAL AND MORE TIME TO PASS BEFORE SCHEDULING CARDIAC REHAB 6-8 WKS AFTER SURGERY. SEEING CARDIAC DOCTOR TOMORROW. - Objective THIS PATIENT AMBULATES INDEP'LY INTO PT TODAY X > 300 FEET WITHOUT ANY ASSISTIVE DEVICES, LOB OR SOB. HE IS ABLE TO TRANSFER FROM SIT TO STAND WITHOUT UE ASSIST OR C/O PAIN. SEE TUG AND STS TEST RESULTS BELOW. AJAY LE STRENGTH AND ROM IS WFL. AJAY LE LIGHT TOUCH SENSATION IS GROSSLY INTACT AND SYMMETRICAL. OT EVAL TO FOLLOW FOR UE FUNCTION AND ADL'S. PATIENT AND CAREGIVER DO NOT HAVE ANY GOALS FOR PT AT THIS TIME AND THIS PT IS OK WITH HOLDING PT BASED ON CURRENT LEVEL OF FUNCTION AND PENDING CARDIAC REHAB STARTING IN APPROX 2 WEEKS. - Balance/Special Test Scores Lower Extremity Functional Score: 40 TUG Test Time Seconds: 9.92 30 Second Chair Rise Test Seconds: 10 - Goals Goal 1:: PT EVAL Goal Time Frame: 1 Week - Anticipated Interventions Thank you for the opportunity to evaluate your patient. For Medicare and Medicare HMO plans, please review the plan of care and approve it. It will need to be FAXED BACK to us at [phone] for Medicare purposes. For Medicare only, by signing this I certify the plan of care. Please let me know if there are questions or concerns regarding this plan of care. Physician Signature: Date:
--- NOTE | 2021-10-22 14:13 | HP.OTEVAL ---
Patient's Visit Information CATHERINE SCHWARTZ III is a 51 year old M, referred to Occupational Therapy by Dr. Christina Belle DO, with a diagnosis of CABG. Date of Evaluation: 10/22/21 Occupational Therapist: Martina Conte, OTR/L, CHT - Subjective This 51 year old male was seen with dx of CABG and Debility. Pt suffered a heart attack on September 22 2021 and underwent CABGx6 on Sep 26 2021. pt just recently D/c from [facility] rehab center. pt arrives with career technical supervisor (self [place] [facility] staff ) that also offers home and adult day service 5x a week for 8 hours-. pt career technical supervisor giving all medical hx. pt still on sternal precautions sore when he coughs- will see sx 10/23/21. pt states he has returned to performing all ADls and IADls and also going to adult day center 8 hours a day-- gets on and off bus without difficulty- staff agrees he is doing well. - ADLs Comments: with dad now for about three more weeks. pts apt. is getting remodeled at this time-. pt has tub/shower combination. one level apt. career technical supervisor states no issues from from sx and mostly endurance and fatigue only - Pain sternal 2 Pain Intensity Range: 2 - Objective pt ambulates IND with his heart pillow. - ROM Elbow: right/ left WNL Forearm: right/ left WNL Wrist: right/ left WNL ROM Comments: pt demo bilateral full composite fist - Strength Shoulder: right/left NT due to sternal precautions Elbow: right/left NT due to sternal precautions Quality Specialist: right 65# left 60# Lateral Pinch: right 10# left 8# Tripod Pinch: right 6# left 8# Strength Comments: pt demo good functional strength to perform ADLs - Sensation Sensation Comments: reports tingling in anterior deltoid - Quick DASH-Disab of Arm,Shoulder& Hand Quick DASH Score: 22.5000 - Rehabilitation General Assessment: pt demo functional strength to perform ADLs and IADLS pt has sternal precautions at this time so pt is avoiding resistive tasks as carrying bags / opening tight jars etc. Pt and staff report he is IND with ADLs and has returned to his activities a the adult day center without difficulty. Both denied need of ad. eq. or skilled OT services at this time. At this time pt does not demo need for skilled OT services and will see surgeon tomorrow to see if he is cleared to initiate cardiac rehab. Staff and pt demo understanding to call if they have questions or concerns and can be re-evaluated at that time. pt and staff agree to POC. - Visit Plan TEXT: Thank you for the opportunity to evaluate your patient. For Medicare and Medicare HMO plans, please review the plan of care and approve it. It will need to be FAXED BACK to us at [phone] for Medicare purposes. Please let me know if there are questions or concerns regarding this plan of care. Physician Signature: Date:
--- NOTE | 2022-02-21 08:38 | HP.PT.NRP ---
CATHERINE SCHWARTZ III was seen in my office for initial evaluation on 10/22/21. The following Plan of Care was established for this patient: This patient was last seen in our office . Pertinent comments regarding their Physical therapy will appear below: EVAL ONLY At this point I will be discontinuing this patient from physical therapy. I would be happy to see this patient again in the future if found appropriate by the physician. Thank you! Nhi Woodard, PT, Cert MDT Balance/Gait/Functional tests - Balance/Special Test Scores Lower Extremity Functional Score: 40 TUG Test Time Seconds: 9.92 Tug Test: <10 sec.=free mobile 30 Second Chair Rise Test Seconds: 10
== END 2021-10-22 19:00 | disposition home or self-care (01) ==
LOC: PT 12:08
PROVIDERS: PCP Internal Medicine; Referring Provider Internal Medicine; Visit Provider Internal Medicine
DX: R53.81 Other malaise (principal); Z95.1 Presence of aortocoronary bypass graft
CPT/HCPCS: 97162; 97166

== ENCOUNTER 2022-06-01 10:22 | Emergency (ER) | payer MEDICARE, MEDICAID, SELFPAY ==
[2022-06-01 10:24] VITALS: BP 116/86; PULSE 112; RESP 16; TEMP 36.8; O2SAT 100; BMI 22.3
--- NOTE | 2022-06-01 10:40 | EX.ED.DYSGE1 ---
HPI History of Present Illness Chief Complaint: Nausea/Vomiting Informant: patient and family Narrative Narrative: Patient presenting with family intermittent vomiting for the past month. States at times in the morning at times after meals. Nonbloody. Last emesis this morning x1. Currently nauseated. Denies diarrhea. Denies abdominal pain. 3 weeks ago had 1 bloody stool. None since. They followed up with Dr. Golden a week ago, upcoming plans for upper and lower endoscopy. Has not had this done in the past. Denies fevers. Recent history this past year 6 vessel CABG followed currently by Dr. Bowman. Denies any cardiomyopathy. Denies any allergies. Reports no medicine started on his visit with surgery. Family reports recent reported history of anemia unknown known baseline hemoglobin. Prior similar symptoms: No PFSH PFSH Medical History Allergic rhinitis Anxiety Atherosclerosis of coronary artery without angina pectoris Cognitive developmental delay Coronary artery disease Essential hypertension Gallbladder sludge GERD (gastroesophageal reflux disease) Hyperlipemia Left anterior hemiblock Nephrolithiasis Neurofibromatosis Nicotine dependence Non-STEMI (non-ST elevated myocardial infarction) (09/22/21) Stenosis of right carotid artery Home Medications acetaminophen 325 mg tablet (Tylenol) 650 mg PO Q6H PRN PRN Pain Score 1-10 #1 TAB 10/15/21 [Rx Last Taken Unknown] amlodipine 2.5 mg tablet 2.5 mg PO DAILY bp #30 tabs 10/15/21 [Rx Last Taken Unknown] aspirin 81 mg chewable tablet 162 mg PO DAILY heart #60 tabs 10/15/21 [Rx Last Taken Unknown] atorvastatin 10 mg tablet (Lipitor) 10 mg PO QHS #30 tabs 10/15/21 [Rx Last Taken Unknown] cetirizine 10 mg capsule (Zyrtec) 10 mg PO DAILY #30 caps 10/15/21 [Rx Last Taken Unknown] colchicine 0.6 mg tablet 0.6 mg PO DAILY gout #30 tabs 10/15/21 [Rx Last Taken Unknown] dextromethorphan-guaifenesin 10 mg-100 mg/5 mL oral syrup 5 ml PO Q6H PRN PRN COUGH #237 mL 10/15/21 [Rx Last Taken Unknown] fluticasone propionate 50 mcg/actuation nasal spray,suspension 2 spray intranasal DAILY allergies #1 g 10/15/21 [Rx Last Taken Unknown] metoprolol tartrate 25 mg tablet 12.5 mg PO BID bp #30 tabs 10/15/21 [Rx Last Taken Unknown] nitroglycerin 0.4 mg sublingual tablet (Nitrostat) 0.4 mg sublingual Q5M PRN chest pain #1 BOTTLE 10/15/21 [Rx Last Taken Unknown] pantoprazole 40 mg tablet,delayed release (Protonix) 40 mg PO DAILY gerd #30 tabs 10/15/21 [Rx Last Taken Unknown] ondansetron 4 mg disintegrating tablet 4 mg PO Q8H PRN PRN nausea and vomiting #10 tabs 06/01/22 [Rx Last Taken Unknown] Allergy/AdvReac Type Severity Reaction Status Date / Time No Known Allergies Allergy Verified 06/01/22 10:26 Family History Mother CAD (coronary artery disease) Had heart surgery at 49 YOA Hyperlipidemia Father Hyperlipidemia Brother Asthma Surgical History H/O coronary artery bypass surgery (09/26/21) History of left heart catheterization (09/23/21) Social History household members: other details: lives in a correction housing: other details: shelter Smoking Status: Former smoker quit date: 02/23/91 pack-years: 2 Tobacco: How many years used: 2 Smokeless tobacco user: chewing tobacco alcohol intake: never substance use type: does not use ROS ROS ED Constitutional Constitutional ED: Denies chills, fever(s) or sweats Eyes Eyes: Denies change in vision ENT ENT ED: Denies dysphagia or sore throat Cardiovascular Cardiovascular: Denies chest pain, leg edema, palpitations or racing heartbeat Respiratory/Chest Respiratory/Chest: Denies cough, dyspnea or dyspnea on exertion Gastrointestinal Gastrointestinal: Reports nausea and vomiting; Denies abdominal pain or diarrhea Genitourinary Genitourinary ED: Denies dysuria, hematuria or urinary frequency Musculoskeletal Musculoskeletal: Denies back pain, extremity pain or neck pain Integumentary Denies rash or wounds Neurologic Neurologic: Denies headache(s), paresthesias or weakness EXAM Physical Exam Const Vital Signs: 06/01/22 10:24 Temperature 98.2 F Temperature Source Temporal Pulse Rate 112 H Respiratory Rate 16 Blood Pressure 116/86 H Blood Pressure Mean 96 Pulse Ox 100 Oxygen Delivery Method Room Air Positive well nourished and well developed General Appearance ED: well developed and NAD HEENT Reports moist mucous membranes normocephalic and atraumatic Eyes PERRL, EOMs intact bilaterally and conjunctivae normal General Eye ED: Yes normal appearance of both eyes Neck no lymphadenopathy and supple General: Negative for tenderness Chest Wall Chest: Negative for tenderness Resp normal respiratory effort and normal air movement Effort and Inspection: symmetric chest movement; Negative for respiratory distress Cardio regular rhythm and no murmurs Rate: tachycardic Peripheral Pulses: pulses 2+ throughout GI normal to inspection, nondistended, normoactive bowel sounds and non-tender GI Narrative: Negative Cortez's or McBurney's tenderness. Palpation: Negative for guarding or rebound tenderness present Back/Spine no CVA tenderness and no thoracic nor lumbar tenderness Extremity normal to inspection General Extremety ED: Negative for edema or tenderness General Extremity: Negative for edema Neuro oriented x3 and no sensory deficits noted Sensorium / Orientation: awake and alert Skin no rashes or lesions noted and no wounds MDM MDM MDM Narrative Medical decision making narrative: Interventions / MDM: Differential diagnosis: Viral syndrome, vomiting, electrolyte abnormalities, dehydration Diagnosis considered but do not suspect: No clinical concerns for cholecystitis or pancreatitis. My EKG interpretation: N/A Imaging independently reviewed and interpreted by myself: N/A External documents reviewed: Cardiology note confirming 6 vessel CABG this past September. Patient with a normal ejection fraction. Test considered but not ordered:N/A ED course: Patient slight tachycardia nonsurgical abdomen. IV established fluids given Zofran. Labs electrolytes were normal. His white count 13.4 likely reactive denies urine symptoms denies cough. Hemoglobin 9.8 last hemoglobin system few months ago was 10. He has plans for upcoming upper and lower endoscopies. Reevaluation improving symptoms p.o. challenge with no difficulties. Prescription for Zofran, discussed continued oral fluids for hydration. Follow-up with surgery for his planned endoscopies. All questions were. Re-evaluation: stable Disposition discussed with patient/family/significant other: Patient and family Case discussed with consulting clinician: N/A Lab Data Labs: Laboratory Results - last 24 hr 06/01/22 06/01/22 10:50 10:50 WBC 13.4 H RBC 3.79 L Hgb 9.8 L Hct 32.1 L MCV 84.7 MCH 25.9 L MCHC 30.5 L RDW Std Deviation 46.4 H RDW Coeff of Inez 15.2 H Plt Count 623 H MPV 8.3 Immature Gran % (Auto) 0.400 Neut % (Auto) 82.8 H Lymph % (Auto) 8.4 L [place] % (Auto) 7.9 Eos % (Auto) 0.1 Baso % (Auto) 0.4 Absolute Neuts (auto) 11.1 H Absolute Lymphs (auto) 1.12 Nucleated RBC % 0 Sodium 135 L Potassium 3.5 Chloride 102 Carbon Dioxide 21.0 Anion Gap 12 BUN 11 Creatinine 0.88 Estim Creat Clear Calc 80.82 Est GFR (MDRD) Af Amer 118 Est GFR (MDRD) Non-Af 98 BUN/Creatinine Ratio 12.5 Glucose 91 Calcium 9.2 Discharge Plan Triage Chief Complaint: Nausea/Vomiting ED Provider: Raphael Myers Dx/Rx/DC Orders Clinical Impression: Nausea & vomiting, Anemia Instructions: Anemia, ED Vomiting (Adult) Prescriptions: New ondansetron [ondansetron] 4 mg tablet,disintegrating 4 mg PO Q8H PRN PRN (Reason: nausea and vomiting) Qty: 10 0RF No Action acetaminophen [Tylenol] 325 mg Tablet 650 mg PO Q6H PRN PRN (Reason: Pain Score 1-10) Qty: 1 0RF dextromethorphan-guaifenesin 10-100 mg/5 mL Syrup 5 ml PO Q6H PRN PRN (Reason: COUGH) Qty: 237 0RF atorvastatin [Lipitor] 10 mg tablet 10 mg PO QHS Qty: 30 0RF nitroglycerin [Nitrostat] 0.4 mg tablet, sublingual 0.4 mg sublingual Q5M PRN (Reason: chest pain) Qty: 1 0RF Rx Instructions: do not exceed 3 doses per episode amlodipine 2.5 mg Tablet 2.5 mg PO DAILY Qty: 30 0RF pantoprazole [Protonix] 40 mg Tablet,Delayed Release (Dr/Ec) 40 mg PO DAILY Qty: 30 0RF aspirin 81 mg Tablet,Chewable 162 mg PO DAILY Qty: 60 0RF colchicine 0.6 mg Tablet 0.6 mg PO DAILY Qty: 30 0RF fluticasone propionate 50 mcg/actuation [place],Suspension 2 spray INTRANASAL DAILY Qty: 1 0RF Rx Instructions: administer into each nostril metoprolol tartrate 25 mg Tablet 12.5 mg PO BID Qty: 30 0RF Zyrtec 10 MG capsule 10 mg PO DAILY Qty: 30 0RF Primary Care Provider: Bertin Feliz Referrals: Harrison Golden MD [Non-Staff] - Keep Sebastien appointment Bertin eFliz MD [Primary Care Provider] - Activity Restrictions/Additional Instructions: Continue oral fluids for for hydration and use Zofran as needed. Keep follow-up with Dr. Diaz for your plan colonoscopy and upper endoscopy. Hemoglobin 9.8 today. your electrolytes normal. Disposition Disposition: Home, Self Care Discharge Date/Time: 06/01/22 11:53
[2022-06-01] MEDS: Ondansetron 4 MG/2 ML Vial IV (10:47)
[2022-06-01 10:57] LABS: Absolute Lymphocyte Count 1.12 X10^3/uL (0.83-4.51); Absolute Neutrophil Count 11.1 X10^3/uL (2.0-7.7); Basophil# 0.05 X10^3/uL; Basophil% 0.4 % (0-1); Eosinophil# 0.01 X10^3/uL; Eosinophils% 0.1 % (0-5); Hematocrit 32.1 % (40-54); Hemoglobin 9.8 g/dL (13.0-16.5); Lymphocyte # 1.12 X10^3/ul (0.83-4.51); Lymphocyte % 8.4 % (19-41); Mean Corp Hgb Conc 30.5 g/dL (32-36); Mean Corpuscular Hgb 25.9 pg (27.0-32.0); Mean Corpuscular Volume 84.7 fL (80-94); Mean Platelet Vol. 8.3 fl (6.2-12.0); Monocyte# 1.05 X10^3/uL; Monocyte% 7.9 % (0-10); NRBC Flagged by Analyzer 0 % (0-5); Neutrophil # 11.06 X10^3/uL (2.7-7.7); Neutrophil % 82.8 % (47-70); Platelet Count 623 K/mm3 (150-450); RBC Distribution Width CV 15.2 % (11.6-14.6); RBC Distribution Width SD 46.4 fl (35.1-43.9); Red Blood Count 3.79 M/mm3 (4.6-6.2); White Blood Count 13.4 K/mm3 (4.4-11.0)
[2022-06-01 11:09] LABS: Anion Gap 12 (5-15); BUN 11 mg/dL (7-18); BUN/Creat Ratio 12.5 RATIO (10-20); Calcium,Total 9.2 mg/dL (8.5-10.1); Chloride 102 mmol/L (98-107); Creatinine, Serum 0.88 mg/dL (0.70-1.30); EST Glomerular Filtration Rate 98 mL/min (>60); Est Glom Filt Rate - Afr Amer 118 mL/min (>60); Estimated Creatinine Clearance 80.82 ml/min; Glucose 91 mg/dL (74-106); Potassium 3.5 mmol/L (3.5-5.1); Sodium Level 135 mmol/L (136-145)
== END 2022-06-01 11:53 | disposition home or self-care (01) ==
PROVIDERS: Emergency Provider Emergency Medicine; PCP Internal Medicine; Visit Provider Emergency Medicine
DX: R11.2 Nausea with vomiting, unspecified (principal); Z87.891 Personal history of nicotine dependence; I25.10 Atherosclerotic heart disease of native coronary artery without angina pectoris; E78.5 Hyperlipidemia, unspecified; I10 Essential (primary) hypertension; D64.9 Anemia, unspecified
CPT/HCPCS: 80048; 85025; 96374; 99283; J7040; A4216; J2405

== ENCOUNTER 2022-06-23 08:37 | Inpatient (IN) | payer MEDICARE, MEDICAID, SELFPAY ==
[2022-06-23] VITALS (8 sets, daily range): BP systolic 99–126; BP diastolic 61–78; PULSE 76–113; RESP 16–18; TEMP 36.6–37.3; O2SAT 95–100; BMI 22.8; BMI 19.1
--- NOTE | 2022-06-23 09:16 | ED.VIS.GI ---
HPI HPI - GI History of Present Illness Chief Complaint: Abd Pain Narrative Narrative: 52-year-old male with recent diagnosis of esophageal cancer diagnosed at [facility] by upper endoscopy. He reports pain around his PEG tube site which was placed at [facility] by Dr. Dwyer. The patient had hematemesis which led to the endoscopy and subsequent finding of esophageal mass. This was biopsied. Patient notes that he had leakage around his PEG feeding tube site for about a month since this is been placed. He followed up with Dr. Golden who did evaluate the site for the leakage but also was consulted to do a Port-A-Cath for the patient to get chemotherapy with Dr. Eastman which is upcoming. He has been unable to tolerate feeds. He is making stool and urine. No fevers. He states his pain is currently 8 of 10 at the site of the feeding tube. [facility] Medical History Allergic rhinitis Anxiety Atherosclerosis of coronary artery without angina pectoris Cognitive developmental delay Coronary artery disease Esophageal cancer Essential hypertension Gallbladder sludge GERD (gastroesophageal reflux disease) Hyperlipemia Left anterior hemiblock Nephrolithiasis Neurofibromatosis Nicotine dependence Non-STEMI (non-ST elevated myocardial infarction) (09/22/21) Stenosis of right carotid artery Home Medications acetaminophen 325 mg tablet (Tylenol) 650 mg PO Q6H PRN PRN Pain Score 1-10 #1 TAB 10/15/21 [Rx Last Taken Unknown] amlodipine 2.5 mg tablet 2.5 mg PO DAILY bp #30 tabs 10/15/21 [Rx Last Taken Unknown] aspirin 81 mg chewable tablet 162 mg PO DAILY heart #60 tabs 10/15/21 [Rx Last Taken Unknown] atorvastatin 10 mg tablet (Lipitor) 10 mg PO QHS #30 tabs 10/15/21 [Rx Last Taken Unknown] cetirizine 10 mg capsule (Zyrtec) 10 mg PO DAILY #30 caps 10/15/21 [Rx Last Taken Unknown] colchicine 0.6 mg tablet 0.6 mg PO DAILY gout #30 tabs 10/15/21 [Rx Last Taken Unknown] dextromethorphan-guaifenesin 10 mg-100 mg/5 mL oral syrup 5 ml PO Q6H PRN PRN COUGH #237 mL 10/15/21 [Rx Last Taken Unknown] fluticasone propionate 50 mcg/actuation nasal spray,suspension 2 spray intranasal DAILY allergies #1 g 10/15/21 [Rx Last Taken Unknown] metoprolol tartrate 25 mg tablet 12.5 mg PO BID bp #30 tabs 10/15/21 [Rx Last Taken Unknown] nitroglycerin 0.4 mg sublingual tablet (Nitrostat) 0.4 mg sublingual Q5M PRN chest pain #1 BOTTLE 10/15/21 [Rx Last Taken Unknown] pantoprazole 40 mg tablet,delayed release (Protonix) 40 mg PO DAILY gerd #30 tabs 10/15/21 [Rx Last Taken Unknown] ondansetron 4 mg disintegrating tablet 4 mg PO Q8H PRN PRN nausea and vomiting #10 tabs 06/01/22 [Rx Last Taken Unknown] amoxicillin 600 mg-potassium clavulanate 42.9 mg/5 mL oral suspension 5 ml PO BID 06/23/22 [History Last Taken Unknown] Allergy/AdvReac Type Severity Reaction Status Date / Time No Known Allergies Allergy Verified 06/23/22 08:37 Family History Mother CAD (coronary artery disease) Had heart surgery at 49 YOA Hyperlipidemia Father Hyperlipidemia Brother Asthma Surgical History H/O coronary artery bypass surgery (09/26/21) History of left heart catheterization (09/23/21) Social History household members: other details: lives in a custodial housing: other details: [employer] Smoking Status: Former smoker quit date: 02/23/91 pack-years: 2 Tobacco: How many years used: 2 Smokeless tobacco user: chewing tobacco alcohol intake: never substance use type: does not use ROS ROS ED Constitutional Constitutional ED: Denies chills, fever(s) or sweats Eyes Eyes: Denies blurry vision or change in vision ENT ENT ED: Denies ear pain or sore throat Cardiovascular Cardiovascular: Denies chest pain, palpitations or racing heartbeat Respiratory/Chest Respiratory/Chest: Denies cough, dyspnea or sputum Gastrointestinal Gastrointestinal: Reports abdominal pain; Denies constipation, diarrhea, nausea or vomiting Genitourinary Genitourinary ED: Denies dysuria, hematuria or urinary frequency Musculoskeletal Musculoskeletal: Denies arthralgias, myalgias or neck pain Integumentary Denies abscess, Abrasions or rash Neurologic Neurologic: Denies headache(s), paresthesias or weakness Psychiatric Psychiatric: Denies anxiety, depression, suicidal ideation or suicidal thoughts Endocrine Endocrinology: Denies polydipsia or polyuria EXAM Physical Exam Const Vital Signs: 06/23/22 08:38 06/23/22 11:37 Temperature 97.8 F Temperature Source Temporal Pulse Rate 113 H 78 Respiratory Rate 18 16 Blood Pressure 113/76 126/78 H Blood Pressure Mean 88 94 Pulse Ox 100 98 Oxygen Delivery Method Room Air Room Air Positive well nourished General Appearance ED: NAD HEENT Reports moist mucous membranes; Denies other atraumatic; Negative for other Eyes PERRL and EOMs intact bilaterally Neck no lymphadenopathy, supple and no JVD Resp normal respiratory effort and clear to auscultation bilaterally Cardio regular rate and regular rhythm GI GI Narrative: Tenderness palpation around PEG tube site. There is slight leakage without bleeding around the site. Back/Spine no CVA tenderness Neuro CN's II-XII intact bilaterally Sensorium / Orientation: alert Motor Exam: strength 5/5 throughout Psych mental status grossly normal and thought process normal Skin no wounds MDM MDM MDM Narrative Medical decision making narrative: Patient presenting with pain around his feeding tube site. There is some leakage around this. Family states that its been an issue since he was placed but it has been usable. Patient with recent history of GI bleed diagnosis of esophageal mass which by the notes state that it was bleeding and friable. Differential includes postoperative pain, GI bleed, bowel obstruction, pain related to cancer, pancreatitis, colitis patient medicated with morphine and Zofran. CBC shows a leukocytosis of 22.4. Hemoglobin down to 7.9. His most recent hemoglobin was 10.2 on the of this month. I suspect this is likely due to GI bleed as he had a history of it. Patient is anticoagulated. Platelet counts normal at 412. CMP shows an alk phosphatase of 308, ALT 36, AST 69, total bilirubin 0.3. Electrolytes unremarkable. CT of the abdomen pelvis with IV contrast was obtained and notes any infectious etiology. There is a large soft esophageal mass as well as liver masses. There is also soft tissue masses superior and anterior to the pancreas. Given the patient's dropping hemoglobin I did speak with Dr. Friend who was amenable to perform endoscopy to check him for bleeding. He recommended octreotide and Protonix drip. Patient discussed with hospitalist for admission. Impression: 1. Acute blood loss anemia 2. Abdominal pain 3. GI bleed Lab Data Labs: Laboratory Results - last 24 hr 06/23/22 06/23/22 09:20 09:20 WBC 22.4 H RBC 2.94 L Hgb 7.9 L Hct 25.3 L MCV 86.1 MCH 26.9 L MCHC 31.2 L RDW Std Deviation 50.4 H RDW Coeff of Inez 16.2 H Plt Count 412 MPV 8.6 Neut % (Auto) Not Reportable Absolute Neuts (auto) 22.2 H Absolute Lymphs (auto) 0.00 L Total Counted 100 Neutrophils % (Manual) 97 H Band Neutrophils % 2 Myelocytes % 1 H Diff Path Review May foll Hypersegmented Neuts 1+ H Platelet Estimate ADEQUATE RBC Morphology NORM C+C Sodium 134 L Potassium 3.5 Chloride 104 Carbon Dioxide 21.0 Anion Gap 9 BUN 16 Creatinine 0.52 L Est GFR (MDRD) Af Amer 217 Est GFR (MDRD) Non-Af 179 BUN/Creatinine Ratio 30.8 H Glucose 92 Calcium 8.7 Total Bilirubin 0.30 AST 69 H ALT 36 Alkaline Phosphatase 308 H Total Protein 6.4 Albumin 2.1 L Globulin 4.3 H Albumin/Globulin Ratio 0.5 L Lipase 40 Radiography Diagnostic Testing: Clinical Impression(s) from Imaging Studies Abdomen/Pelvis CT 06/23/22 10:13 IMPRESSION: Large esophageal mass. Masses are seen in the left lobe of liver in keeping with metastatic deposits. Soft tissue mass in the epigastrium anterior and superior to the pancreas as described. Although findings suggest esophageal carcinoma with metastasis as compared to prior study. Electronically Signed: Sanjeev Cao MD at 11:24 EDT , Discharge Plan Triage Chief Complaint: Abd Pain ED Provider: Cipriano Castro Dx/Rx/DC Orders Prescriptions: No Action acetaminophen [Tylenol] 325 mg Tablet 650 mg PO Q6H PRN PRN (Reason: Pain Score 1-10) Qty: 1 0RF dextromethorphan-guaifenesin 10-100 mg/5 mL Syrup 5 ml PO Q6H PRN PRN (Reason: COUGH) Qty: 237 0RF atorvastatin [Lipitor] 10 mg tablet 10 mg PO QHS Qty: 30 0RF nitroglycerin [Nitrostat] 0.4 mg tablet, sublingual 0.4 mg sublingual Q5M PRN (Reason: chest pain) Qty: 1 0RF Rx Instructions: do not exceed 3 doses per episode amlodipine 2.5 mg Tablet 2.5 mg PO DAILY Qty: 30 0RF pantoprazole [Protonix] 40 mg Tablet,Delayed Release (Dr/Ec) 40 mg PO DAILY Qty: 30 0RF aspirin 81 mg Tablet,Chewable 162 mg PO DAILY Qty: 60 0RF colchicine 0.6 mg Tablet 0.6 mg PO DAILY Qty: 30 0RF fluticasone propionate 50 mcg/actuation [place],Suspension 2 spray INTRANASAL DAILY Qty: 1 0RF Rx Instructions: administer into each nostril metoprolol tartrate 25 mg Tablet 12.5 mg PO BID Qty: 30 0RF Zyrtec 10 MG capsule 10 mg PO DAILY Qty: 30 0RF ondansetron [ondansetron] 4 mg tablet,disintegrating 4 mg PO Q8H PRN PRN (Reason: nausea and vomiting) Qty: 10 0RF amoxicillin-pot clavulanate 600-42.9 mg/5 mL suspension for reconstitution 5 ml PO BID Primary Care Provider: Bertin Feliz Referrals: Bertin Feliz MD [Primary Care Provider] -
[2022-06-23] MEDS: Morphine 4 MG/ML Syringe IV ×2 (09:26→13:29)
[2022-06-23] MEDS: Ondansetron 4 MG/2 ML Vial IV (09:26)
[2022-06-23] MEDS: 0.9% Normal Saline 1,000 ML 1000 ML IV (09:26)
[2022-06-23 09:30] LABS: Hematocrit 25.3 % (40-54); Hemoglobin 7.9 g/dL (13.0-16.5); Mean Corp Hgb Conc 31.2 g/dL (32-36); Mean Corpuscular Hgb 26.9 pg (27.0-32.0); Mean Corpuscular Volume 86.1 fL (80-94); Mean Platelet Vol. 8.6 fl (6.2-12.0); POSITIVE COUNT YES; POSITIVE MORPHOLOGY YES; Platelet Count 412 K/mm3 (150-450); RBC Distribution Width CV 16.2 % (11.6-14.6); RBC Distribution Width SD 50.4 fl (35.1-43.9); Red Blood Count 2.94 M/mm3 (4.6-6.2); White Blood Count 22.4 K/mm3 (4.4-11.0)
[2022-06-23 09:33] LABS: Differential Indicated MANUAL DIFF
[2022-06-23 09:45] LABS: ALB/GLOB Ratio 0.5 RATIO (0.9-2.4); AST(SGOT) 69 U/L (15-37); Alanine Aminotransfer ALT/SGPT 36 U/L (16-61); Albumin, Serum 2.1 g/dL (3.2-5.0); Alkaline Phosphatase 308 U/L (45-117); Anion Gap 9 (5-15); BUN 16 mg/dL (7-18); BUN/Creat Ratio 30.8 RATIO (10-20); Calcium,Total 8.7 mg/dL (8.5-10.1); Chloride 104 mmol/L (98-107); Creatinine, Serum 0.52 mg/dL (0.70-1.30); EST Glomerular Filtration Rate 179 mL/min (>60); Est Glom Filt Rate - Afr Amer 217 mL/min (>60); Globulin 4.3 g/dL (2.2-4.2); Glucose 92 mg/dL (74-106); Lipase 40 U/L (13-75); Potassium 3.5 mmol/L (3.5-5.1); Protein, Total 6.4 g/dL (6.4-8.2); Sodium Level 134 mmol/L (136-145)
--- NOTE | 2022-06-23 10:13 | CT_ITS ---
STUDY: CT ABDOMEN AND PELVIS WITH CONTRAST REASON FOR EXAM: Male, 52 years old. Abdominal pain. History of esophageal carcinoma. RADIATION DOSAGE (If Supplied By Facility): CTDIvol = ( 6.52 ) mGy, DLP = ( 295.07 ) mGycm TECHNIQUE: Transaxial images were obtained from the dome of the diaphragm to the symphysis pubis without oral contrast. IV 100mL Isovue-300 was administered. Sagittal and coronal images were reconstructed. Individualized dose optimization techniques were used for this CT. COMPARISON: Comparison is made with prior examination dated March 13, 2020. FINDINGS: The visualized lung bases are unremarkable. Coronary artery calcification. Large esophageal mass seen in the distal esophagus extending to the gastroesophageal junction. This mass measures 5.4 cm x 6.4 cm x 7.7 cm. Since prior study, multiple masses are seen in the left lobe of the liver. The largest mass measures 6.9 cm x 6.1 cm. Normal gallbladder and extrahepatic biliary system. Normal spleen. Normal pancreas. There is evidence of a 6.7 cm x 6.4 cm soft tissue mass in the region of the epigastrium just superior and anterior to the pancreas. This most likely represents large adenopathy. Normal bilateral adrenal glands. Normal right kidney. Normal left kidney. Normal visualized stomach. Normal small intestine. There are multiple colonic diverticula consistent with diverticulosis. The appendix is visualized and appears normal. Normal abdominal aorta. Normal inferior vena cava. Normal retroperitoneum. Normal urinary bladder. Normal abdominal wall. There are diffuse degenerative changes of the visualized lumbar spine. CT/Abdomen/Pelvis W IV Cont ONLY IMPRESSION: Large esophageal mass. Masses are seen in the left lobe of liver in keeping with metastatic deposits. Soft tissue mass in the epigastrium anterior and superior to the pancreas as described. Although findings suggest esophageal carcinoma with metastasis as compared to prior study. Electronically Signed: Sanjeev Cao MD at 11:24 EDT ,
[2022-06-23 10:16] LABS: Myelocyte 1 % (0-0); Neutrophil-Band 2 % (0-5); Neutrophil-Segmented 97 % (47-70); Total Cells Counted 100 (MANUAL DIFF)
[2022-06-23 10:17] LABS: Absolute Neutrophil Count 22.2 X10^3/uL (2.0-7.7)
[2022-06-23 10:18] LABS: Platelet Estimate ADEQUATE (ADEQ); Red Cell Morphology NORM C+C NORMAL (NORM C&C)
[2022-06-23 10:27] LABS: Hypersegmented Neutrophils 1+
--- NOTE | 2022-06-23 12:44 | PCM.HP.STD ---
HPI - General General Date of Admission: 06/23/22 Date of Service: 06/23/22 Chief Complaint: PEG tube malfunctioning, infected and severe anemia HPI Narrative CATHERINE SCHWARTZ, is a 52 M with recently diagnosed with esophageal cancer outside by EGD in [facility] in March 2022 and had 3 sessions of chemotherapy by Dr. Eastman last chemotherapy on June 18 came to ED for leakage from the PEG tube and abdominal pain. His abdominal pain is more localized around the PEG tube exacerbated by the movement of the PEG tube or bolus feeding. There are also purulent drainage around PEG tube. His POA also complained that tube feed and bilious fluid also leaks around the tube. Prior to that, patient has lost weight from 155 pounds to 110 in about 6 months, loss of weight and mild dysphagia that led to the diagnosis of esophageal cancer. As per patient and POA, he did not had much difficulty in swallowing liquid food but sometimes he spits saliva and mild occasional cough at night. No fever or chills. Denies burning pain during micturition. In ED, vitals shows tachycardia 113 Glytone improved. Blood pressure in normal range. No tachypnea or hypoxia. H&H 7.9/25.3%. Leukocytosis, 1+ hypersegmented neutrophil. [facility] Medical History Allergic rhinitis Anxiety Atherosclerosis of coronary artery without angina pectoris Cognitive developmental delay Coronary artery disease Esophageal cancer Essential hypertension Gallbladder sludge GERD (gastroesophageal reflux disease) Hyperlipemia Left anterior hemiblock Nephrolithiasis Neurofibromatosis Nicotine dependence Non-STEMI (non-ST elevated myocardial infarction) (09/22/21) Stenosis of right carotid artery Home Medications acetaminophen 325 mg tablet (Tylenol) 650 mg PO Q6H PRN PRN Pain Score 1-10 #1 TAB 10/15/21 [Rx Last Taken 06/23/22] amlodipine 2.5 mg tablet 2.5 mg PO DAILY bp #30 tabs 10/15/21 [Rx Last Taken 06/23/22] aspirin 81 mg chewable tablet 162 mg PO DAILY heart #60 tabs 10/15/21 [Rx Last Taken 06/23/22] fluticasone propionate 50 mcg/actuation nasal spray,suspension 2 spray intranasal DAILY allergies #1 g 10/15/21 [Rx Last Taken 06/22/22] nitroglycerin 0.4 mg sublingual tablet (Nitrostat) 0.4 mg sublingual Q5M PRN chest pain #1 BOTTLE 10/15/21 [Rx Last Taken Unknown] pantoprazole 40 mg tablet,delayed release (Protonix) 40 mg PO DAILY gerd #30 tabs 10/15/21 [Rx Last Taken 06/23/22] ondansetron 4 mg disintegrating tablet 4 mg PO Q8H PRN PRN nausea and vomiting #10 tabs 06/01/22 [Rx Last Taken Unknown] amoxicillin 600 mg-potassium clavulanate 42.9 mg/5 mL oral suspension 5 ml PO BID 06/23/22 [History Last Taken 06/23/22] atorvastatin 40 mg tablet 40 mg PO QHS CHOLESTEROL 06/23/22 [History Last Taken 06/22/22] promethazine 25 mg tablet 25 mg PO Q6H PRN Nausea 06/23/22 [History Last Taken 06/22/22] sertraline 100 mg tablet 100 mg PO DAILY MOOD 06/23/22 [History Last Taken 06/23/22] Allergy/AdvReac Type Severity Reaction Status Date / Time No Known Allergies Allergy Verified 06/23/22 08:37 Family History Mother CAD (coronary artery disease) Had heart surgery at 49 YOA Hyperlipidemia Father Hyperlipidemia Brother Asthma Surgical History H/O coronary artery bypass surgery (09/26/21) History of left heart catheterization (09/23/21) Social History household members: other details: lives in a prison housing: other details: intermediate Smoking Status: Former smoker quit date: 02/23/91 pack-years: 2 Tobacco: How many years used: 2 Smokeless tobacco user: chewing tobacco alcohol intake: never substance use type: does not use ROS ROS Narrative Constitutional: Reports fatigue and generalized weakness. loss of weight. HEENT: Reports systems reviewed and no addt'l complaints, except as documented Respiratory/Chest: Denies chest pain, shortness of breath at rest. CVS: History of CABG and cardiac cath in the past. No recent anginal-like symptoms. Gastrointestinal: As described in HPI. No obvious hematemesis melena or hematochezia. Genitourinary: Denies burning urination or new urinary tract symptoms Musculoskeletal: Denies acute joint pain and limited range of motion Neurologic: Denies seizure-like activity. No acute stroke. skin: Neurofibromatosis nodules. Endocrinology: Reports systems reviewed and no addt'l complaints, except as documented Hematologic/Lymphatic: Esophageal cancer. Severe anemia. Reports systems reviewed and no addt'l complaints, except as documented Rest 14 ROS are negative except as mentioned in HPI Vital Signs Vital Signs Vital Signs: 06/23/22 08:38 06/23/22 11:37 Temperature 97.8 F Temperature Source Temporal Pulse Rate 113 H 78 Respiratory Rate 18 16 Blood Pressure 113/76 126/78 H Blood Pressure Mean 88 94 Pulse Ox 100 98 Oxygen Delivery Method Room Air Room Air Weight Weight: 128 lb 14.4 oz Body Mass Index (BMI) 22.8 Physical Exam Narrative General: Alert, Oriented x3, Cooperative, moderate chronic protein calorie malnutrition HEENT: Atraumatic, PERRLA, EOMI, Normocephalic Oral: Dental caries. Oral mucosa moist. No acute oral ulcer. Neck: Supple, No JVD, Negative Carotid Bruits Lungs: Air entry diminished in bilateral lung bases. No crepitation/rhonchi Cardiovascular: CABG scar. Regular rate, Regular Rhythm, Normal S1, Normal S2, No murmurs Abdomen: Soft, tenderness present around PEG tube. Purulent drainage and crust around PEG tube. Bowel Sounds Present. No palpable mass. : No renal angle tenderness. No suprapubic tenderness. Extremities: No edema, Capillary Refill Less than 3 Seconds Skin: Neurofibromatosis nodules. Musculoskeletal: No Tenderness to Palpation of Joints or Extremities. Muscle strength 4+/5 at knees and hip joints. Neurological: Cranial nerves II-XII grossly intact, DTR 2+/4 and Symmetrical, Neuro grossly intact Psych/Mental Status: Flat affect. Results Lab / Micro Data Result Diagrams: 06/23/22 09:20 06/23/22 09:20 Labs: Laboratory Results - last 24 hr 06/23/22 09:20: WBC 22.4 H, RBC 2.94 L, Hgb 7.9 L, Hct 25.3 L, MCV 86.1, MCH 26.9 L, MCHC 31.2 L, RDW Std Deviation 50.4 H, RDW Coeff of Inez 16.2 H, Plt Count 412, MPV 8.6, Neut % (Auto) Not Reportable, Absolute Neuts (auto) 22.2 H, Absolute Lymphs (auto) 0.00 L, Total Counted 100, Neutrophils % (Manual) 97 H, Band Neutrophils % 2, Myelocytes % 1 H, Diff Path Review May foll, Hypersegmented Neuts 1+ H, Platelet Estimate ADEQUATE, RBC Morphology NORM C+C 06/23/22 09:20: Sodium 134 L, Potassium 3.5, Chloride 104, Carbon Dioxide 21.0, Anion Gap 9, BUN 16, Creatinine 0.52 L, Est GFR (MDRD) Af Amer 217, Est GFR (MDRD) Non-Af 179, BUN/Creatinine Ratio 30.8 H, Glucose 92, Calcium 8.7, Total Bilirubin 0.30, AST 69 H, ALT 36, Alkaline Phosphatase 308 H, Total Protein 6.4, Albumin 2.1 L, Globulin 4.3 H, Albumin/Globulin Ratio 0.5 L, Lipase 40 Radiology Impression Abdomen/Pelvis CT 06/23/22 10:13 IMPRESSION: Large esophageal mass. Masses are seen in the left lobe of liver in keeping with metastatic deposits. Soft tissue mass in the epigastrium anterior and superior to the pancreas as described. Although findings suggest esophageal carcinoma with metastasis as compared to prior study. Electronically Signed: Sanjeev Cao MD at 11:24 EDT , Assessment & Plan Assessment/Plan (1) PEG tube malfunction: (2) Acute anemia: PLAN: Plan This is a 52-year-old gentleman being admitted for evaluation of acute anemia and PEG tube malfunction. 1. Acute on chronic normocytic normochromic anemia probably due to chemotherapy/advanced esophageal cancer and iron deficiency anemia: Patient is being admitted in PCU. Patient did not had recent acute GI blood loss in the last 3 to 4 weeks. He had mild bleeding around the PEG tube. Anemia work-up ordered. GI is consulted and discussed with him. Plan for EGD tomorrow AM. His hemoglobin was 10 to 11 g in September 2021, 9.8 on June 01, 2022 and today 7.9. H&H every 6 hourly. Type and crossmatch. Patient on IV PPI drip and octreotide drip. 2. PEG tube malfunction: Some purulent drainage along with staining of bile and on the dressing. Patient is started on IV Unasyn. Patient has leukocytosis with right shift which may be from infection, and esophageal cancer. [employer] aware of PEG tube malfunction. Patient had PEG tube placed outside by Dr. Dwyer in [facility] when he was admitted about a month ago. Patient can swallow full liquid diet. 3. Advanced esophageal cancer with possible metastasis to left lobe of liver and retroperitoneal lymph node: CT abdomen pelvis with IV contrast individually reviewed. It shows a large esophageal mass with multiple masses in the left lobe of liver consistent with metastatic lesions. Soft tissue mass in epigastrium anterior and superior to pancreas which is most probably retroperitoneal lymph node. Patient had 3 sessions of chemotherapy with Dr. Eastman. There is plan for Mediport in the next 2 to 3 days which needs to be postponed until patient clears infection. This is scheduled for the Dr. Golden. 4. Atherosclerotic coronary artery disease status post CABG, left anterior hemiblock: Patient follows in cardiology clinic with Martina. Patient enlarged cardiac cath in September 2021 reported triple-vessel disease involving long LAD, circumflex artery lesion and distal RCA with EF 50%. At that time patient had CABG outside.Most recent echo in August 2021 reported EF 60%, mild MR. 5. Other comorbidities include GERD, allergic rhinitis, dyslipidemia, severe anxiety disorder and panic attack: Patient also has congenital developmental disorder. 6. Patient used to chew tobacco, smokeless tobacco. He quit chewing tobacco after diagnosis of esophageal cancer. DVT prophylaxis, high risk: Patient is currently not candidate for pharmacological prophylaxis due to severe anemia. Bilateral SCDs. Living will/advanced directive/end of life care: Patient does have living will or advanced directive. Her aunt is power of assistant prosecuting attorney for health. After discussion of benefits/risks procedures involved with full code, DNR CC arrest and DNR CC, the patient and POA agreed for full code. Patient does want artificial life support including intubation, tube feed, ventilator and/chest compression, central venous catheter, vasopressor and DC shock if needed during CODE BLUE situation but does not want to be dependent on life support if the condition is determined a reversible. Total time spent in [id number] encounter in discussion of advanced directive 17 minutes. Clinical Impression(s) from Imaging Studies Abdomen/Pelvis CT 06/23/22 10:13 IMPRESSION: Large esophageal mass. Masses are seen in the left lobe of liver in keeping with metastatic deposits. Soft tissue mass in the epigastrium anterior and superior to the pancreas as described. Although findings suggest esophageal carcinoma with metastasis as compared to prior study. Electronically Signed: Sanjeev Cao MD at 11:24 EDT , Charges/Coding Visit Charges Inpatient E&M: 02838 Init Hosp L3 Procedures Hospitalists Procedures: 16380 Advncd Care Plan 30 Min
[2022-06-23] MEDS: KCL 20MEQ in 0.45%NS 20 MEQ/1,000 ML IV.SOLN. 100 MEQ IV ×2 (13:32→23:53)
[2022-06-23 16:10] LABS: Hematocrit 23.9 % (40-54); Hemoglobin 7.1 g/dL (13.0-16.5)
--- NOTE | 2022-06-23 16:40 | CON.PCM.GI_ITS ---
HPI Consult Data Date of Consult: 06/23/22 Attending Care Provider: GI bleed and esophageal cancer HPI Narrative Reason for Consultation: GI bleed and esophageal cancer HPI Narrative: CATHERINE SCHWARTZ, is a 52 M who presents pain around his Gtube site. He has a recent diagnosis of esophageal cancer diagnosed at [facility] by upper endoscopy.? He reports pain around his PEG tube site which was placed at [facility] by Dr. Dwyer.? The patient had hematemesis which led to the endoscopy and subsequent finding of esophageal mass.? This was biopsied.? Patient notes that he had leakage around his PEG feeding tube site for about a month since this is been placed.? He followed up with Dr. Golden who did evaluate the site for the leakage but also was consulted to do a Port-A-Cath for the patient to get chemotherapy with Dr. Eastman which is upcoming.? He has been unable to tolerate feeds.? He is making stool and urine.? No fevers.? He states his pain is currently 8 of 10 at the site of the feeding tube. He also admits to intermittent fevers and chills. He had a CT scan of the abdomen pelvis in the ED and it shows a large tumor burden in the liver along with lymph adenopathy around the esophagus. He also has a past medical history of an acute [place] s/p heart catheterization which demonstrated triple-vessel disease involving a long LAD lesion, circumflex lesion, distal RCA lesion with mildly decreased LV function.? Patient was transferred to [facility] for CT surgery evaluation.? Patient did undergo a 6 vessel bypass surgery on September 26, 2021 with an JAMIL to the LAD, SVG to the obtuse marginal, left radial graft to the obtuse marginal, SVG to the diagonal #2, SVG sequential to the posterior descending and then to the posterior lateral.? [facility] Medical History (Updated 06/23/22 @ 16:37 by Sandy Tapia) Allergic rhinitis Anxiety Atherosclerosis of coronary artery without angina pectoris Cancer Cognitive developmental delay Coronary artery disease Esophageal cancer Essential hypertension Gallbladder sludge GERD (gastroesophageal reflux disease) GERD (gastroesophageal reflux disease) Hyperlipemia Left anterior hemiblock Myocardial infarct Nephrolithiasis Neurofibromatosis Nicotine dependence Non-STEMI (non-ST elevated myocardial infarction) (09/22/21) Stenosis of right carotid artery Home Medications acetaminophen 325 mg tablet (Tylenol) 650 mg PO Q6H PRN PRN Pain Score 1-10 #1 TAB 10/15/21 [Rx Last Taken 06/23/22] amlodipine 2.5 mg tablet 2.5 mg PO DAILY bp #30 tabs 10/15/21 [Rx Last Taken 06/23/22] aspirin 81 mg chewable tablet 162 mg PO DAILY heart #60 tabs 10/15/21 [Rx Last Taken 06/23/22] fluticasone propionate 50 mcg/actuation nasal spray,suspension 2 spray intranasal DAILY allergies #1 g 10/15/21 [Rx Last Taken 06/22/22] nitroglycerin 0.4 mg sublingual tablet (Nitrostat) 0.4 mg sublingual Q5M PRN chest pain #1 BOTTLE 10/15/21 [Rx Last Taken Unknown] pantoprazole 40 mg tablet,delayed release (Protonix) 40 mg PO DAILY gerd #30 tabs 10/15/21 [Rx Last Taken 06/23/22] ondansetron 4 mg disintegrating tablet 4 mg PO Q8H PRN PRN nausea and vomiting #10 tabs 06/01/22 [Rx Last Taken Unknown] amoxicillin 600 mg-potassium clavulanate 42.9 mg/5 mL oral suspension 5 ml PO BID 06/23/22 [History Last Taken 06/23/22] atorvastatin 40 mg tablet 40 mg PO QHS CHOLESTEROL 06/23/22 [History Last Taken 06/22/22] promethazine 25 mg tablet 25 mg PO Q6H PRN Nausea 06/23/22 [History Last Taken 06/22/22] sertraline 100 mg tablet 100 mg PO DAILY MOOD 06/23/22 [History Last Taken 06/23/22] Allergy/AdvReac Type Severity Reaction Status Date / Time No Known Allergies Allergy Verified 06/23/22 08:37 Family History Mother CAD (coronary artery disease) Had heart surgery at 49 YOA Hyperlipidemia Father Hyperlipidemia Brother Asthma Surgical History (Updated 06/23/22 @ 16:37 by Sandy Tapia) H/O coronary artery bypass surgery (09/26/21) History of appendectomy History of left heart catheterization (09/23/21) Social History household members: other details: lives in a skilled nursing housing: other details: [facility] Smoking Status: Former smoker quit date: 02/23/91 pack-years: 2 Tobacco: How many years used: 2 Smokeless tobacco user: chewing tobacco alcohol intake: never substance use type: does not use ROS ROS Narrative Constitutional: Reports fatigue and generalized weakness. loss of weight. HEENT: Reports systems reviewed and no addt'l complaints, except as documented Respiratory/Chest: Denies chest pain, shortness of breath at rest. CVS: History of CABG and cardiac cath in the past. No recent anginal-like symptoms. Gastrointestinal: As described in HPI. No obvious hematemesis melena or hematochezia. Genitourinary: Denies burning urination or new urinary tract symptoms Musculoskeletal: Denies acute joint pain and limited range of motion Neurologic: Denies seizure-like activity. No acute stroke. skin: Neurofibromatosis nodules. Endocrinology: Reports systems reviewed and no addt'l complaints, except as documented Hematologic/Lymphatic: Esophageal cancer. Severe anemia. Reports systems reviewed and no addt'l complaints, except as documented Rest 14 ROS are negative except as mentioned in HPI Physical Exam Narrative General: Alert, Oriented x3, Cooperative, moderate chronic protein calorie malnutrition HEENT: Atraumatic, PERRLA, EOMI, Normocephalic Oral: Dental caries. Oral mucosa moist. No acute oral ulcer. Neck: Supple, No JVD, Negative Carotid Bruits Lungs: Air entry diminished in bilateral lung bases. No crepitation/rhonchi Cardiovascular: CABG scar. Regular rate, Regular Rhythm, Normal S1, Normal S2, No murmurs Abdomen: Soft, tenderness present around PEG tube. Purulent drainage and crust around PEG tube. Bowel Sounds Present. No palpable mass. : No renal angle tenderness. No suprapubic tenderness. Extremities: No edema, Capillary Refill Less than 3 Seconds Skin: Neurofibromatosis nodules. Musculoskeletal: No Tenderness to Palpation of Joints or Extremities. Muscle strength 4+/5 at knees and hip joints. Neurological: Cranial nerves II-XII grossly intact, DTR 2+/4 and Symmetrical, Neuro grossly intact Psych/Mental Status: Flat affect. Lab / Micro Data Result Diagrams: 06/23/22 15:55 06/23/22 09:20 Labs: Laboratory Results - last 24 hr 06/23/22 09:20: WBC 22.4 H, RBC 2.94 L, Hgb 7.9 L, Hct 25.3 L, MCV 86.1, MCH 26.9 L, MCHC 31.2 L, RDW Std Deviation 50.4 H, RDW Coeff of Inez 16.2 H, Plt Count 412, MPV 8.6, Neut % (Auto) Not Reportable, Absolute Neuts (auto) 22.2 H, Absolute Lymphs (auto) 0.00 L, Total Counted 100, Neutrophils % (Manual) 97 H, Band Neutrophils % 2, Myelocytes % 1 H, Diff Path Review June, Hypersegmented Neuts 1+ H, Platelet Estimate ADEQUATE, RBC Morphology NORM C+C 06/23/22 09:20: Sodium 134 L, Potassium 3.5, Chloride 104, Carbon Dioxide 21.0, Anion Gap 9, BUN 16, Creatinine 0.52 L, Est GFR (MDRD) Af Amer 217, Est GFR (MDRD) Non-Af 179, BUN/Creatinine Ratio 30.8 H, Glucose 92, Calcium 8.7, Total Bilirubin 0.30, AST 69 H, ALT 36, Alkaline Phosphatase 308 H, Total Protein 6.4, Albumin 2.1 L, Globulin 4.3 H, Albumin/Globulin Ratio 0.5 L, Lipase 40 06/23/22 15:55: Hgb 7.1 L, Hct 23.9 L Radiology Impression Abdomen/Pelvis CT 06/23/22 10:13 IMPRESSION: Large esophageal mass. Masses are seen in the left lobe of liver in keeping with metastatic deposits. Soft tissue mass in the epigastrium anterior and superior to the pancreas as described. Although findings suggest esophageal carcinoma with metastasis as compared to prior study. 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 He does have anemia likely anemia chronic disease secondary to esophageal cancer in the setting of iron deficiency anemia from likely slow bleed in his esophagus. He is on aspirin therapy I suspect that he has some local injury due to aspirin affecting his GI tract wear the esophageal Cancer is located. We will perform an EGD tomorrow to evaluate his upper GI tract. He may benefit from an esophageal stent in the future. I do not know if radiation therapy is a possibility for him if he does have recurrent GI bleed.At the site of the neuroendocrine tumor. We will also evaluate the PEG tube and see if we can change it as it appears to be infected. I am okay with the patient being on antibiotic therapy. As per the patient he cannot swallow full liquid diet so we will continue that until midnight. Atherosclerotic coronary artery disease status post CABG, left anterior hemiblock: Patient follows in cardiology clinic with Martina. Patient enlarged cardiac cath in September 2021 reported triple-vessel disease involving long LAD, circumflex artery lesion and distal RCA with EF 50%. At that time patient had CABG outside.Most recent echo in August 2021 reported EF 60%, mild MR. Charges/Coding Visit Charges Inpatient E&M: 99416 Init Hosp L3
[2022-06-23] MEDS: oxyCODONE 5 MG Tablet PO (16:53)
[2022-06-23 19:58] LABS: Magnesium 1.8 mg/dL (1.6-2.6)
[2022-06-23 21:48] LABS: Hematocrit 23.7 % (40-54); Hemoglobin 7.1 g/dL (13.0-16.5)
[2022-06-23] MEDS: Atorvastatin Calcium 40 MG Tablet PO (22:00)
[2022-06-24] VITALS (19 sets, daily range): BP systolic 74–115; BP diastolic 44–84; PULSE 80–103; RESP 16–25; TEMP 36.4–37.9; O2SAT 93–100; BMI 19.1
[2022-06-24] MEDS: Acetaminophen 325 MG Tablet 650 MG PO (03:51)
[2022-06-24 03:55] LABS: Hematocrit 23.4 % (40-54); Hemoglobin 7.1 g/dL (13.0-16.5); Mean Corp Hgb Conc 30.3 g/dL (32-36); Mean Corpuscular Hgb 26.8 pg (27.0-32.0); Mean Corpuscular Volume 88.3 fL (80-94); Mean Platelet Vol. 8.4 fl (6.2-12.0); POSITIVE COUNT YES; POSITIVE DIFFERENTIAL YES; POSITIVE MORPHOLOGY YES; Platelet Count 350 K/mm3 (150-450); RBC Distribution Width CV 16.3 % (11.6-14.6); RBC Distribution Width SD 53.1 fl (35.1-43.9); Red Blood Count 2.65 M/mm3 (4.6-6.2); White Blood Count 12.5 K/mm3 (4.4-11.0)
[2022-06-24 04:05] LABS: Differential Indicated MANUAL DIFF
[2022-06-24 04:08] LABS: Anion Gap 4 (5-15); BUN 8 mg/dL (7-18); BUN/Creat Ratio 19.3 RATIO (10-20); Calcium,Total 8.4 mg/dL (8.5-10.1); Chloride 102 mmol/L (98-107); Creatinine, Serum 0.41 mg/dL (0.70-1.30); EST Glomerular Filtration Rate 232 mL/min (>60); Est Glom Filt Rate - Afr Amer 281 mL/min (>60); Glucose 96 mg/dL (74-106); Potassium 4.2 mmol/L (3.5-5.1); Sodium Level 130 mmol/L (136-145)
[2022-06-24 04:11] LABS: Anisocytosis 1+
[2022-06-24 04:15] LABS: Absolute Lymphocyte Count 0.37 X10^3/uL (0.83-4.51); Lymphocyte 3 % (19-41); Myelocyte 1 % (0-0); Neutrophil-Band 4 % (0-5); Neutrophil-Segmented 92 % (47-70); Total Cells Counted 100 (MANUAL DIFF)
[2022-06-24 04:16] LABS: Platelet Estimate ADEQUATE (ADEQ); Red Cell Morphology NORM C+C NORMAL (NORM C&C)
--- NOTE | 2022-06-24 09:24 | PCM.PN.HOSP ---
Reason for Visit Reason for Visit: Diagnoses Anemia, unspecified (06/23/22) Gastrostomy malfunction (06/23/22) Subjective Subjective Follow-up for severe anemia hemoglobin 7.1, PEG tube malfunction and leaking. Esophageal carcinoma. Objective Data Objective Data Vital Signs: Vital Signs Temp Pulse Resp BP Pulse Ox O2 Del Method 98.0 F 80 18 109/69 100 Room Air 06/24/22 06:00 06/24/22 06:00 06/24/22 06:00 06/24/22 06:00 06/24/22 06:00 06/24/22 06:00 Oxygen Delivery Method Room Air Weight: 108 lb 3.951 oz Body Mass Index (BMI) 19.1 Intake & Output: Intake and Output for Last 24 Hours 06/22/22 06/23/22 06/24/22 23:59 23:59 23:59 Intake Total 2362 / 2602 337.67 / 337.67 Output Total 1750 / 1750 Balance 2362 / 1902 -1412.33 / -1412.33 Lab / Micro Data Result Diagrams: 06/24/22 03:48 06/24/22 03:48 Labs: Laboratory Results - last 24 hr 06/23/22 09:20: WBC 22.4 H, RBC 2.94 L, Hgb 7.9 L, Hct 25.3 L, MCV 86.1, MCH 26.9 L, MCHC 31.2 L, RDW Std Deviation 50.4 H, RDW Coeff of Inez 16.2 H, Plt Count 412, MPV 8.6, Neut % (Auto) Not Reportable, Absolute Neuts (auto) 22.2 H, Absolute Lymphs (auto) 0.00 L, Total Counted 100, Neutrophils % (Manual) 97 H, Band Neutrophils % 2, Myelocytes % 1 H, Diff Path Review May foll, Hypersegmented Neuts 1+ H, Platelet Estimate ADEQUATE, RBC Morphology NORM C+C 06/23/22 09:20: Sodium 134 L, Potassium 3.5, Chloride 104, Carbon Dioxide 21.0, Anion Gap 9, BUN 16, Creatinine 0.52 L, Est GFR (MDRD) Af Amer 217, Est GFR (MDRD) Non-Af 179, BUN/Creatinine Ratio 30.8 H, Glucose 92, Calcium 8.7, Total Bilirubin 0.30, AST 69 H, ALT 36, Alkaline Phosphatase 308 H, Total Protein 6.4, Albumin 2.1 L, Globulin 4.3 H, Albumin/Globulin Ratio 0.5 L, Lipase 40 06/23/22 09:20: Phosphorus 3.0, Magnesium 1.8 06/23/22 15:55: Hgb 7.1 L, Hct 23.9 L 06/23/22 21:25: Hgb 7.1 L, Hct 23.7 L 06/24/22 03:48: WBC 12.5 H, RBC 2.65 L, Hgb 7.1 L, Hct 23.4 L, MCV 88.3, MCH 26.8 L, MCHC 30.3 L, RDW Std Deviation 53.1 H, RDW Coeff of Inez 16.3 H, Plt Count 350, MPV 8.4, Neut % (Auto) Not Reportable, Absolute Neuts (auto) 12.0 H, Absolute Lymphs (auto) 0.37 L, Total Counted 100, Neutrophils % (Manual) 92 H, Band Neutrophils % 4, Lymphocytes % (Manual) 3 L, Myelocytes % 1 H, Diff Path Review June, Platelet Estimate ADEQUATE, RBC Morphology NORM C+C, Anisocytosis 1+ 06/24/22 03:48: Sodium 130 L, Potassium 4.2, Chloride 102, Carbon Dioxide 24.0, Anion Gap 4 L, BUN 8, Creatinine 0.41 L, Estim Creat Clear Calc 149.70, Est GFR (MDRD) Af Amer 281, Est GFR (MDRD) Non-Af 232, BUN/Creatinine Ratio 19.3, Glucose 96, Calcium 8.4 L Radiography Diagnostic Testing: Radiology Impression Abdomen/Pelvis CT 06/23/22 10:13 IMPRESSION: Large esophageal mass. Masses are seen in the left lobe of liver in keeping with metastatic deposits. Soft tissue mass in the epigastrium anterior and superior to the pancreas as described. Although findings suggest esophageal carcinoma with metastasis as compared to prior study. Electronically Signed: Sanjeev Cao MD at 11:24 EDT , Physical Exam Narrative Seen and examined. Patient abdominal pain is 6/10 intensity, more localized around PEG tube. Hemoglobin low. Sodium 130. General: Alert, Oriented x3, Cooperative, moderate chronic protein calorie malnutrition HEENT: Atraumatic, PERRLA, EOMI, Normocephalic Oral: Dental caries. Oral mucosa moist. No acute oral ulcer. Neck: Supple, No JVD, Negative Carotid Bruits Lungs: Air entry diminished in bilateral lung bases. No crepitation/rhonchi Cardiovascular: CABG scar. Regular rate, Regular Rhythm, Normal S1, Normal S2, No murmurs Abdomen: Soft, tenderness present around PEG tube. No acute drainage around PEG tube. Bowel Sounds Present. No palpable mass. : No renal angle tenderness. No suprapubic tenderness. Extremities: No edema, Capillary Refill Less than 3 Seconds Skin: Neurofibromatosis nodules. Musculoskeletal: No Tenderness to Palpation of Joints or Extremities. Muscle strength 4+/5 at knees and hip joints. Neurological: Cranial nerves II-XII grossly intact, DTR 2+/4 and Symmetrical, Neuro grossly intact Psych/Mental Status: Flat affect. Assessment & Plan Assessment/Plan (1) PEG tube malfunction: (2) Acute anemia: PLAN: Plan This is a 52-year-old gentleman being admitted for evaluation of acute anemia and PEG tube malfunction. 1. Acute on chronic normocytic normochromic anemia probably due to chemotherapy/advanced esophageal cancer and iron deficiency anemia: Patient is being admitted in PCU. Patient did not had recent acute GI blood loss in the last 3 to 4 weeks. He had mild bleeding around the PEG tube. Anemia work-up ordered. GI is consulted and discussed with him. Plan for EGD tomorrow AM. His hemoglobin was 10 to 11 g in September 2021, 9.8 on June 01, 2022 and today 7.9. H&H every 6 hourly. Type and crossmatch. Patient on IV PPI drip and octreotide drip. 5/2: Hemoglobin is low 7.1/23.4%. Heart rate and blood pressure in normal range though BP is on lower side, chronically. 1 unit PRBC transfusion ordered. Plan for EGD today 2. PEG tube malfunction: Some purulent drainage along with staining of bile and on the dressing. Patient is started on IV Unasyn. Patient has leukocytosis with right shift which may be from infection, and esophageal cancer. Promotions Executive aware of PEG tube malfunction. Patient had PEG tube placed outside by Dr. Dwyer in [facility] when he was admitted about a month ago. Patient can swallow full liquid diet. 06/24: Speech therapy evaluation. Continue IV antibiotic 3. Advanced esophageal cancer with possible metastasis to left lobe of liver and retroperitoneal lymph node: CT abdomen pelvis with IV contrast individually reviewed. It shows a large esophageal mass with multiple masses in the left lobe of liver consistent with metastatic lesions. Soft tissue mass in epigastrium anterior and superior to pancreas which is most probably retroperitoneal lymph node. Patient had 3 sessions of chemotherapy with Dr. Eastman. There is plan for Mediport in the next 2 to 3 days which needs to be postponed until patient clears infection. This is scheduled WITH Dr. Golden. 4. Atherosclerotic coronary artery disease status post CABG, left anterior hemiblock: Patient follows in cardiology clinic with Martina. Patient enlarged cardiac cath in September 2021 reported triple-vessel disease involving long LAD, circumflex artery lesion and distal RCA with EF 50%. At that time patient had CABG outside.Most recent echo in August 2021 reported EF 60%, mild MR. 5. Other comorbidities include GERD, allergic rhinitis, dyslipidemia, severe anxiety disorder and panic attack: Patient also has congenital developmental disorder. 6. Patient used to chew tobacco, smokeless tobacco. He quit chewing tobacco after diagnosis of esophageal cancer. DVT prophylaxis, high risk: Patient is currently not candidate for pharmacological prophylaxis due to severe anemia. Bilateral SCDs. Living will/advanced directive/end of life care: Patient does have living will or advanced directive. Her aunt is power of assistant city attorney for health. After discussion of benefits/risks procedures involved with full code, DNR CC arrest and DNR CC, the patient and POA agreed for full code. Patient does want artificial life support including intubation, tube feed, ventilator and/chest compression, central venous catheter, vasopressor and DC shock if needed during CODE BLUE situation but does not want to be dependent on life support if the condition is determined a reversible. Clinical Impression(s) from Imaging Studies Abdomen/Pelvis CT 06/23/22 10:13 IMPRESSION: Large esophageal mass. Masses are seen in the left lobe of liver in keeping with metastatic deposits. Soft tissue mass in the epigastrium anterior and superior to the pancreas as described. Although findings suggest esophageal carcinoma with metastasis as compared to prior study. Electronically Signed: Sanjeev Cao MD at 11:24 EDT , Charges/Coding Visit Charges Inpatient E&M: 19172 Subs Hosp L2
--- NOTE | 2022-06-24 09:52 | WOUNDNOTE ---
wound photo: mid chest
[2022-06-24] MEDS: Fluticasone 0.05% 1 SPRAY NASAL.SRY 2 SPRAY NASAL (10:01)
[2022-06-24] MEDS: Sertraline 100 MG Tablet PO (10:02)
[2022-06-24] MEDS: 0.9% Saline Lock 10 ML Syringe IV ×2 (11:33→19:19)
[2022-06-24 12:56] LABS: Pathologist Review Reviewed
[2022-06-24 13:02] LABS: Pathologist Review Reviewed
--- NOTE | 2022-06-24 13:45 | CASEMGMT ---
YAMILE TEE Face to Face with patient for initial transition planning/care coordination assessment. RN CM introduced self and role at [facility]. Patient lying in bed, alert and oriented, father and brother at bedside. Patient willing to participate in assessment and is able to answer all questions appropriately. Care providers, pharmacy, and demographics verified. Patient wishes to discharge home with resumption of HHC with [facility]. Patient states he has no further needs or concerns at this time. CM to follow for discharge planning needs that may arise. PCP: Tray Specialists: Raiza oncologist Preferred Pharmacy: [facility] Benefit: yes Living Will/HPOA: yes, Payton Zeng LNOK: father, brother, aunt Living Arrangements: Patient lives with father and brother in a 2 story home. Patient states he is independent and able to ambulate stairs. Transportation: father DME/HHC: Patient has tube feed and feeding pump through [facility]. Patient is active with [facility] for fdc. Disposition Plan: Patient to discharge home with resumption of HHC, family support, and follow-up plans in place. Shobha CONTRERAS, RN, CM
--- NOTE | 2022-06-24 18:43 | OP.EGD_ITS ---
Patient Name: Kelvin Villalba Procedure Date: 06/24/2022 5:50 PM Date of : 1970 Age: 52 Procedure: Upper GI endoscopy Indications: Dysphagia Providers: Ignacio Duron DO Medicines: Monitored Anesthesia Care Patient Profile: This is a 52 year old male. Refer to note in patient chart for documentation of history and physical. Patient has symptoms of dysphagia with both liquids and solids. Complications: No immediate complications. Procedure: Pre-Anesthesia Assessment: - Prior to the procedure, a History and Physical was performed, and patient medications and allergies were reviewed. The patient is competent. The risks and benefits of the procedure and the sedation options and risks were discussed with the patient. All questions were answered and informed consent was obtained. Patient identification and proposed procedure were verified by the physician. Mental Status Examination: normal. Prophylactic Antibiotics: The patient does not require prophylactic antibiotics. Prior Anticoagulants: The patient has taken no previous anticoagulant or antiplatelet agents. ASA Grade Assessment: III - A patient with severe systemic disease. After reviewing the risks and benefits, the patient was deemed in satisfactory condition to undergo the procedure. The anesthesia plan was to use monitored anesthesia care (MAC). Immediately prior to administration of medications, the patient was re-assessed for adequacy to receive sedatives. The heart rate, respiratory rate, oxygen saturations, blood pressure, adequacy of pulmonary ventilation, and response to care were monitored throughout the procedure. The physical status of the patient was re-assessed after the procedure. After obtaining informed consent, the endoscope was passed under direct vision. Throughout the procedure, the patient's blood pressure, pulse, and oxygen saturations were monitored continuously. The Endoscope was introduced through the mouth, and advanced to the second part of duodenum. The upper GI endoscopy was accomplished without difficulty. The patient tolerated the procedure well. Scope In: 6:05:14 PM Scope Out: 6:32:19 PM Total Procedure Duration Time 0 hours 27 minutes 5 seconds Findings: A large, ulcerating mass with bleeding and stigmata of recent bleeding was found in the proximal esophagus, in the mid esophagus and in the distal esophagus, 24 to 42 cm from the incisors. The mass was partially obstructing and circumferential. Area was successfully injected with 5 mL of a 1:20,000 solution of epinephrine for drug delivery. Coagulation for hemostasis using argon plasma at 0.3 liters/minute and 30 pham was successful. Estimated blood loss was minimal. There was evidence of an intact gastrostomy with an occluded G-tube present on the greater curvature of the stomach. This was characterized by edema, erosion and erythema. The PEG required removal because it was clogged and was infected. The PEG was removed under endoscopic vision. Removal was easily accomplished. An externally removable 20 Fr Bard gastrostomy tube was lubricated. The guide wire was passed through the existing G-tube port and snared endoscopically. The endoscope and snare were then removed, pulling the wire out through the mouth. The g-tube was passed over the guidewire through the mouth, into the stomach and out through the G-tube port. The bumper was attached to the gastrostomy tube. The feeding tube was then cut to an appropriate length. The final position of the gastrostomy tube was confirmed by relook endoscopy, and skin marking noted to be 4 cm at the external bumper. The final tension and compression of the abdominal wall by the PEG tube and external bumper were checked and revealed that the bumper was loose and lightly touching the skin. The tube was capped, and the tube site was cleaned and dressed. No gross lesions were noted in the first portion of the duodenum. Impression: - Partially obstructing, malignant esophageal tumor was found in the proximal esophagus, in the mid esophagus and in the distal esophagus. Injected. Treated with argon plasma coagulation (APC). - Intact gastrostomy with an occluded G-tube present characterized by edema, erosion and erythema. - No gross lesions in the first portion of the duodenum. - The PEG was removed because it was clogged and was infected, and replaced with an externally removable PEG. - No specimens collected. Recommendation: - [facility] to [facility]. - Resume previous diet. - Continue present medications. Procedure Code(s): --- Professional --- 69064, 59, Esophagogastroduodenoscopy, flexible, transoral; with control of bleeding, any method 07967, Esophagogastroduodenoscopy, flexible, transoral; with directed placement of percutaneous gastrostomy tube 23170, 59,51, Esophagogastroduodenoscopy, flexible, transoral; with directed submucosal injection(s), any substance CPT copyright 2017 [employer]. All rights reserved. The codes documented in this report are preliminary and upon behavioral science chair review may be revised to meet current compliance requirements. Ignacio Duron DO 06/24/2022 6:43:07 PM This report has been signed electronically. Number of Addenda: 0 Note Initiated On: 06/24/2022 5:50 PM
--- NOTE | 2022-06-24 18:44 | OP.CCLET_ITS ---
06/24/2022 Bertin Feliz [address] [place] [address] Re : Upper GI endoscopy procedure for Kelvin Jadeaditya Dear Dr. Feliz This procedure was performed on Friday, June 24, 2022. My impressions and recommendations are as follows: Impressions : - Partially obstructing, malignant esophageal tumor was found in the proximal esophagus, in the mid esophagus and in the distal esophagus. Injected. Treated with argon plasma coagulation (APC). - Intact gastrostomy with an occluded G-tube present characterized by edema, erosion and erythema. - No gross lesions in the first portion of the duodenum. - The PEG was removed because it was clogged and was infected, and replaced with an externally removable PEG. - No specimens collected. Recommendations : - Return patient to [facility] for [facility] care. - Resume previous diet. - Continue present medications. My findings are described in the full procedure note, which is enclosed. If I can be of further assistance, please feel free to contact me at . Sincerely, Ignacio Duron, 06/24/2022 6:43:07 PM This report has been signed electronically.
[2022-06-24] MEDS: Ondansetron 4 MG/2 ML Vial IV (19:18)
[2022-06-25] VITALS (7 sets, daily range): BP systolic 102–120; BP diastolic 67–78; PULSE 89–93; RESP 15–22; TEMP 36.1–37.7; O2SAT 96–99; BMI 19.4
[2022-06-25 06:02] LABS: Absolute Lymphocyte Count 0.43 X10^3/uL (0.83-4.51); Absolute Neutrophil Count 2.6 X10^3/uL (2.0-7.7); Basophil# 0.03 X10^3/uL; Basophil% 0.9 % (0-1); Eosinophil# 0.02 X10^3/uL; Eosinophils% 0.6 % (0-5); Hematocrit 26.8 % (40-54); Hemoglobin 8.7 g/dL (13.0-16.5); Lymphocyte # 0.43 X10^3/ul (0.83-4.51); Lymphocyte % 13.3 % (19-41); Mean Corp Hgb Conc 32.5 g/dL (32-36); Mean Corpuscular Hgb 27.5 pg (27.0-32.0); Mean Corpuscular Volume 84.8 fL (80-94); Mean Platelet Vol. 8.7 fl (6.2-12.0); Monocyte# 0.09 X10^3/uL; Monocyte% 2.8 % (0-10); NRBC Flagged by Analyzer 0 % (0-5); Neutrophil # 2.63 X10^3/uL (2.7-7.7); Neutrophil % 81.5 % (47-70); POSITIVE DIFFERENTIAL YES; POSITIVE MORPHOLOGY YES; Platelet Count 281 K/mm3 (150-450); RBC Distribution Width CV 15.9 % (11.6-14.6); Red Blood Count 3.16 M/mm3 (4.6-6.2); White Blood Count 3.2 K/mm3 (4.4-11.0)
[2022-06-25 06:03] LABS: Differential Indicated SCAN CRITERIA MET
[2022-06-25 06:28] LABS: Anisocytosis 1+
[2022-06-25 06:30] LABS: Atypical Lymphocyte 1+ %
[2022-06-25 07:05] LABS: BUN 7 mg/dL (7-18); Creatinine, Serum 0.32 mg/dL (0.70-1.30); EST Glomerular Filtration Rate 314 mL/min (>60); Estimated Creatinine Clearance 194.14 ml/min; Glucose 96 mg/dL (74-106)
[2022-06-25 07:06] LABS: Anion Gap 8 (5-15); BUN/Creat Ratio 21.9 RATIO (10-20); Calcium,Total 8.2 mg/dL (8.5-10.1); Chloride 103 mmol/L (98-107); Est Glom Filt Rate - Afr Amer 380 mL/min (>60); Potassium 3.5 mmol/L (3.5-5.1); Sodium Level 133 mmol/L (136-145)
[2022-06-25] MEDS: Fluticasone 0.05% 1 SPRAY NASAL.SRY 2 SPRAY NASAL (08:42)
[2022-06-25] MEDS: Sertraline 100 MG Tablet PO (08:43)
--- NOTE | 2022-06-25 15:33 | PCM.PN.HOSP ---
Reason for Visit Reason for Visit: Diagnoses Anemia, unspecified (06/23/22) Gastrostomy malfunction (06/23/22) Subjective Subjective Follow-up for severe anemia, esophageal adenocarcinoma Objective Data Objective Data Vital Signs: Vital Signs Temp Pulse Resp BP Pulse Ox O2 Del Method 97.7 F L 90 16 120/78 98 Room Air 06/25/22 11:20 06/25/22 11:20 06/25/22 11:20 06/25/22 11:20 06/25/22 11:20 06/25/22 11:20 Oxygen Delivery Method Room Air Weight: 109 lb 9.116 oz Body Mass Index (BMI) 19.4 Intake & Output: Intake and Output for Last 24 Hours 06/23/22 06/24/22 06/25/22 23:59 23:59 23:59 Intake Total 2362 / 2602 2284.66 / 2284.66 1036.58 / 1036.58 Output Total 2850 / 2850 700 / 700 Balance 2362 / 1902 -565.34 / -565.34 336.58 / 336.58 Medical Nutrition Assessment Dietitian: Malnutrition Criteria Met Start: 06/24/22 12:11 Freq: Status: Active Protocol: Document 06/25/22 13:59 AG (Rec: 06/25/22 13:59 AG [id number]) Nutrition Malnutrition Evidence of Malnutrition Exists Yes Malnutrition (severe): Chronic Evidenced By Suboptimal Energy Intake ( Severe),Weight Loss (Severe), Physical Changes (Severe) Clinical Problem Chronic Disease or Condition Related Malnutrition Etiology severe, chronic malnutrition related to inadequate energy intake w/ increased energy needs d/t esophageal cancer Signs/Symptoms as evidenced by unintentional 46.8#/30% weight loss x 6 months, estimated energy intake meeting <75% of estimated energy needs > 3 months; Obvious severe muscle wasting/fat loss evident per physical exam in orbital, clavicle, acromion, and temporal areas Status Active Problem Recommendation Dietitian Recommendations/Changes 1) Do not anticipate pt will be meeting estimated energy needs via PO diet. Pt appears hesitant to oral nutrition supplements and to use of PEG. Will aim to meet at least 50% of calorie needs via PEG- Pivot 1.5 240mL bolus 3x/day w / 90mL H2O flush before and after each bolus to provide 1080 calories, 67.5 g protein, and 1080mL total fluid/day. Would start w/ 120mL for first bolus; increase by 60mL w/ each bolus as tolerated until goal volume is achieved. 2) Continue full liquid diet as tolerated. Will add 120mL ensure plus high protein w/ medpass. 3) Will monitor intake at meals and adjust ONS/EN as indicated. 4) Daily wts. Close monitoring of labs/electrolytes. Lab / Micro Data Result Diagrams: 06/25/22 04:47 06/25/22 04:47 Labs: Laboratory Results - last 24 hr 06/24/22 09:52: Crossmatch See Detail 06/24/22 09:52: Crossmatch See Detail 06/25/22 04:47: WBC 3.2 L, RBC 3.16 L, Hgb 8.7 L, Hct 26.8 L, MCV 84.8, MCH 27.5, MCHC 32.5 D, RDW Std Deviation 49.0 H, RDW Coeff of Inez 15.9 H, Plt Count 281, MPV 8.7, Immature Gran % (Auto) 0.900, Neut % (Auto) 81.5 H, Lymph % (Auto) 13.3 L, [place] % (Auto) 2.8, Eos % (Auto) 0.6, Baso % (Auto) 0.9, Absolute Neuts (auto) 2.6, Absolute Lymphs (auto) 0.43 L, Nucleated RBC % 0, Diff Path Review May foll, Atypical Lymphocytes 1+, Anisocytosis 1+ 06/25/22 04:47: Sodium 133 L, Potassium 3.5, Chloride 103, Carbon Dioxide 22.0, Anion Gap 8, BUN 7, Creatinine 0.32 L, Estim Creat Clear Calc 194.14, Est GFR (MDRD) Af Amer 380, Est GFR (MDRD) Non-Af 314, BUN/Creatinine Ratio 21.9 H, Glucose 96, Calcium 8.2 L Physical Exam Narrative Seen and examined. Patient abdominal pain is 3-4/10 intensity, more localized around PEG tube. PEG tube was changed yesterday. Patient had EGD. General: Alert, Oriented x3, Cooperative, moderate chronic protein calorie malnutrition HEENT: Atraumatic, PERRLA, EOMI, Normocephalic Oral: Dental caries. Oral mucosa moist. No acute oral ulcer. Neck: Supple, No JVD, Negative Carotid Bruits Lungs: Air entry diminished in bilateral lung bases. No crepitation/rhonchi Cardiovascular: CABG scar. Regular rate, Regular Rhythm, Normal S1, Normal S2, No murmurs Abdomen: Soft, mild tenderness present around PEG tube. No acute drainage around PEG tube. Bowel Sounds Present. No palpable mass. : No renal angle tenderness. No suprapubic tenderness. Extremities: No edema, Capillary Refill Less than 3 Seconds Skin: Neurofibromatosis nodules. Musculoskeletal: No Tenderness to Palpation of Joints or Extremities. Muscle strength 4+/5 at knees and hip joints. Neurological: Cranial nerves II-XII grossly intact, DTR 2+/4 and Symmetrical, Neuro grossly intact Psych/Mental Status: Flat affect. Assessment & Plan Assessment/Plan (1) PEG tube malfunction: (2) Acute anemia: PLAN: Plan This is a 52-year-old gentleman being admitted for evaluation of acute anemia and PEG tube malfunction. 1. Acute on chronic normocytic normochromic anemia probably due to chemotherapy/advanced esophageal cancer and iron deficiency anemia: Patient is being admitted in PCU. Patient did not had recent acute GI blood loss in the last 3 to 4 weeks. He had mild bleeding around the PEG tube. Anemia work-up ordered. GI is consulted and discussed with him. Plan for EGD tomorrow AM. His hemoglobin was 10 to 11 g in September 2021, 9.8 on June 01, 2022 and today 7.9. H&H every 6 hourly. Type and crossmatch. Patient on IV PPI drip and octreotide drip. 06/24: Hemoglobin is low 7.1/23.4%. Heart rate and blood pressure in normal range though BP is on lower side, chronically. 1 unit PRBC transfusion ordered. Plan for EGD today 06/25: Hemoglobin improved to 8.7, platelet count 281,000. 2. PEG tube malfunction: Some purulent drainage along with staining of bile and on the dressing. Patient is started on IV Unasyn. Patient has leukocytosis with right shift which may be from infection, and esophageal cancer. Oiler Helper aware of PEG tube malfunction. Patient had PEG tube placed outside by Dr. Dwyer in [facility] when he was admitted about a month ago. Patient can swallow full liquid diet. 06/24: Speech therapy evaluation. Continue IV antibiotic 06/30: PEG tube was changed yesterday. EGD shows large partially obstructing esophageal carcinoma from proximal to distal. PEG tube feeding started. Mild hypokalemia, potassium getting replaced. Mild hyponatremia. Patient started on tube feed. 3. Advanced esophageal cancer with possible metastasis to left lobe of liver and retroperitoneal lymph node: CT abdomen pelvis with IV contrast individually reviewed. It shows a large esophageal mass with multiple masses in the left lobe of liver consistent with metastatic lesions. Soft tissue mass in epigastrium anterior and superior to pancreas which is most probably retroperitoneal lymph node. Patient had 3 sessions of chemotherapy with Dr. Eastman. There is plan for Mediport in the next 2 to 3 days which needs to be postponed until patient clears infection. This is scheduled WITH Dr. Golden. 4. Atherosclerotic coronary artery disease status post CABG, left anterior hemiblock: Patient follows in cardiology clinic with Martina. Patient enlarged cardiac cath in September 2021 reported triple-vessel disease involving long LAD, circumflex artery lesion and distal RCA with EF 50%. At that time patient had CABG outside.Most recent echo in August 2021 reported EF 60%, mild MR. 5. Other comorbidities include GERD, allergic rhinitis, dyslipidemia, severe anxiety disorder and panic attack: Patient also has congenital developmental disorder. 6. Patient used to chew tobacco, smokeless tobacco. He quit chewing tobacco after diagnosis of esophageal cancer. DVT prophylaxis, high risk: Patient is currently not candidate for pharmacological prophylaxis due to severe anemia. Bilateral SCDs. Living will/advanced directive/end of life care: Patient does have living will or advanced directive. Her aunt is power of wire technician for health. After discussion of benefits/risks procedures involved with full code, DNR CC arrest and DNR CC, the patient and POA agreed for full code. Patient does want artificial life support including intubation, tube feed, ventilator and/chest compression, central venous catheter, vasopressor and DC shock if needed during CODE BLUE situation but does not want to be dependent on life support if the condition is determined a reversible. Clinical Impression(s) from Imaging Studies Abdomen/Pelvis CT 06/23/22 10:13 IMPRESSION: Large esophageal mass. Masses are seen in the left lobe of liver in keeping with metastatic deposits. Soft tissue mass in the epigastrium anterior and superior to the pancreas as described. Although findings suggest esophageal carcinoma with metastasis as compared to prior study. Electronically Signed: Sanjeev Cao MD at 11:24 EDT , Charges/Coding Visit Charges Inpatient E&M: 46677 Subs Hosp L2
[2022-06-25 15:57] LABS: Platelet Count 287 K/mm3 (150-450); RET-HE 32.8 pg (30-35); Reticulocyte Count 0.27 % (0.5-1.5)
[2022-06-25] MEDS: Pivot 1.5 Cal 1,000 ML BOTTLE 240 ML GT ×2 (16:21→22:07)
[2022-06-25 17:03] LABS: Ferritin 893 ng/mL (26-388); Iron 140 ug/dL (65-175); Iron Binding Capacity,Total 147 ug/dL (250-450); PERCENT IRON SATURATION 95.2 % (15.0-55.0)
[2022-06-25 17:04] LABS: Vitamin B12 1087 pg/mL (211-911)
--- NOTE | 2022-06-25 17:43 | PN_ITS ---
Subjective Subjective Patient underwent an EGD yesterday and was discovered to have bleeding esophageal lesion that that was treated endoscopically along with having a infected feeding tube that was removed and replaced at the bedside. He has been eating a little bit better today. The esophageal stricture from the circumferential lesion was dilated. Objective Data Objective Data Vital Signs: Vital Signs Temp Pulse Resp BP Pulse Ox O2 Del Method 96.9 F L 93 16 109/76 96 Room Air 06/25/22 15:20 06/25/22 15:20 06/25/22 15:20 06/25/22 15:20 06/25/22 15:20 06/25/22 15:20 Oxygen Delivery Method Room Air Weight: 109 lb 9.116 oz Body Mass Index (BMI) 19.4 Intake & Output: Intake and Output for Last 24 Hours 06/23/22 06/24/22 06/25/22 23:59 23:59 23:59 Intake Total 2362 / 2602 2284.66 / 2284.66 1036.58 / 1036.58 Output Total 2850 / 2850 700 / 700 Balance 2362 / 1902 -565.34 / -565.34 336.58 / 336.58 Medical Nutrition Assessment Dietitian: Malnutrition Criteria Met Start: 06/24/22 12:11 Freq: Status: Active Protocol: Document 06/25/22 13:59 AG (Rec: 06/25/22 13:59 AG [id number]) Nutrition Malnutrition Evidence of Malnutrition Exists Yes Malnutrition (severe): Chronic Evidenced By Suboptimal Energy Intake ( Severe),Weight Loss (Severe), Physical Changes (Severe) Clinical Problem Chronic Disease or Condition Related Malnutrition Etiology severe, chronic malnutrition related to inadequate energy intake w/ increased energy needs d/t esophageal cancer Signs/Symptoms as evidenced by unintentional 46.8#/30% weight loss x 6 months, estimated energy intake meeting <75% of estimated energy needs > 3 months; Obvious severe muscle wasting/fat loss evident per physical exam in orbital, clavicle, acromion, and temporal areas Status Active Problem Recommendation Dietitian Recommendations/Changes 1) Do not anticipate pt will be meeting estimated energy needs via PO diet. Pt appears hesitant to oral nutrition supplements and to use of PEG. Will aim to meet at least 50% of calorie needs via PEG- Pivot 1.5 240mL bolus 3x/day w / 90mL H2O flush before and after each bolus to provide 1080 calories, 67.5 g protein, and 1080mL total fluid/day. Would start w/ 120mL for first bolus; increase by 60mL w/ each bolus as tolerated until goal volume is achieved. 2) Continue full liquid diet as tolerated. Will add 120mL ensure plus high protein w/ medpass. 3) Will monitor intake at meals and adjust ONS/EN as indicated. 4) Daily wts. Close monitoring of labs/electrolytes. Lab / Micro Data Result Diagrams: 06/25/22 04:47 06/25/22 04:47 Labs: Laboratory Results - last 24 hr 06/24/22 09:52: Crossmatch See Detail 06/24/22 09:52: Crossmatch See Detail 06/25/22 04:47: WBC 3.2 L, RBC 3.16 L, Hgb 8.7 L, Hct 26.8 L, MCV 84.8, MCH 27.5, MCHC 32.5 D, RDW Std Deviation 49.0 H, RDW Coeff of [place]ez 15.9 H, Plt Count 281, MPV 8.7, Immature Gran % (Auto) 0.900, Neut % (Auto) 81.5 H, Lymph % (Auto) 13.3 L, [place] % (Auto) 2.8, Eos % (Auto) 0.6, Baso % (Auto) 0.9, Absolute Neuts (auto) 2.6, Absolute Lymphs (auto) 0.43 L, Nucleated RBC % 0, Diff Path Review May foll, Atypical Lymphocytes 1+, Anisocytosis 1+ 06/25/22 04:47: Sodium 133 L, Potassium 3.5, Chloride 103, Carbon Dioxide 22.0, Anion Gap 8, BUN 7, Creatinine 0.32 L, Estim Creat Clear Calc 194.14, Est GFR (MDRD) Af Amer 380, Est GFR (MDRD) Non-Af 314, BUN/Creatinine Ratio 21.9 H, Glucose 96, Calcium 8.2 L 06/25/22 04:47: Retic Count 0.27 L, Immature Retic Fraction 0.80 L, Retic Hgb Equivalent 32.8 06/25/22 04:47: Iron 140, TIBC 147 L, Iron Saturation 95.2 H, Ferritin 893 H, Folate 8.10 06/25/22 16:28: Vitamin B12 1087 H Physical Exam Narrative Seen and examined. Patient abdominal pain is 3-4/10 intensity, more localized around PEG tube. PEG tube was changed yesterday. Patient had EGD. General: Alert, Oriented x3, Cooperative, moderate chronic protein calorie malnutrition HEENT: Atraumatic, PERRLA, EOMI, Normocephalic Oral: Dental caries. Oral mucosa moist. No acute oral ulcer. Neck: Supple, No JVD, Negative Carotid Bruits Lungs: Air entry diminished in bilateral lung bases. No crepitation/rhonchi Cardiovascular: CABG scar. Regular rate, Regular Rhythm, Normal S1, Normal S2, No murmurs Abdomen: Soft, mild tenderness present around PEG tube. No acute drainage around PEG tube. Bowel Sounds Present. No palpable mass. : No renal angle tenderness. No suprapubic tenderness. Extremities: No edema, Capillary Refill Less than 3 Seconds Skin: Neurofibromatosis nodules. Musculoskeletal: No Tenderness to Palpation of Joints or Extremities. Muscle strength 4+/5 at knees and hip joints. Neurological: Cranial nerves II-XII grossly intact, DTR 2+/4 and Symmetrical, Neuro grossly intact Psych/Mental Status: Flat affect. 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 He is being followed by oncology. (2) PEG tube malfunction: PLAN: Status post removal and replacement. Patient can have his normal tube fee dings through the new PEG tube without restrictions (3) Acute anemia: PLAN: . Acute anemia likely secondary to bleeding from the esophageal mass. Charges/Coding Visit Charges Inpatient E&M: 73138 Subs Hosp L3
[2022-06-25] MEDS: Potassium Chloride Oral Soln 20 MEQ/15 ML UDC 40 MEQ PO ×2 (18:12→22:15)
[2022-06-25] MEDS: Atorvastatin Calcium 40 MG Tablet PO (22:15)
[2022-06-26 04:16] VITALS: BP 101/64; PULSE 89; RESP 15; TEMP 37.3; O2SAT 97
[2022-06-26 04:19] VITALS: BP 101/64; PULSE 89; RESP 15; TEMP 37.3; O2SAT 97
[2022-06-26] MEDS: Pivot 1.5 Cal 1,000 ML BOTTLE 240 ML GT ×2 (04:57→13:27)
[2022-06-26] MEDS: Ondansetron 4 MG/2 ML Vial IV (05:12)
[2022-06-26 06:00] VITALS: BMI 18.7
[2022-06-26 06:35] LABS: Absolute Lymphocyte Count 0.36 X10^3/uL (0.83-4.51); Basophil# 0.03 X10^3/uL; Basophil% 1.9 % (0-1); Eosinophil# 0.01 X10^3/uL; Eosinophils% 0.6 % (0-5); Hemoglobin 9.5 g/dL (13.0-16.5); Lymphocyte # 0.36 X10^3/ul (0.83-4.51); Lymphocyte % 22.2 % (19-41); Mean Corp Hgb Conc 31.7 g/dL (32-36); Mean Corpuscular Hgb 27.2 pg (27.0-32.0); Mean Platelet Vol. 8.7 fl (6.2-12.0); Monocyte# 0.15 X10^3/uL; Monocyte% 9.3 % (0-10); NRBC Flagged by Analyzer 0 % (0-5); Neutrophil # 1.01 X10^3/uL (2.7-7.7); Neutrophil % 62.3 % (47-70); POSITIVE DIFFERENTIAL YES; POSITIVE MORPHOLOGY YES; Platelet Count 257 K/mm3 (150-450); RBC Distribution Width CV 15.9 % (11.6-14.6); RBC Distribution Width SD 50.4 fl (35.1-43.9); Red Blood Count 3.49 M/mm3 (4.6-6.2); White Blood Count 1.6 K/mm3 (4.4-11.0)
[2022-06-26 06:48] LABS: Differential Indicated SCAN CRITERIA MET
[2022-06-26 07:03] LABS: Anion Gap 10 (5-15); BUN 12 mg/dL (7-18); BUN/Creat Ratio 27.7 RATIO (10-20); Calcium,Total 8.5 mg/dL (8.5-10.1); Chloride 105 mmol/L (98-107); Creatinine, Serum 0.43 mg/dL (0.70-1.30); EST Glomerular Filtration Rate 221 mL/min (>60); Est Glom Filt Rate - Afr Amer 267 mL/min (>60); Estimated Creatinine Clearance 139.53 ml/min; Glucose 139 mg/dL (74-106); Sodium Level 134 mmol/L (136-145)
--- NOTE | 2022-06-26 07:49 | DCINST_ITS ---
Discharge Instructions Diet Discharge Diet: - (Resume home tube feed ) Activity Discharge Activity: Return to Normal Activity Weight Bearing Status: Weight bearing as tolerated Dressing / Incision Call your doctor if you observe: Fever of 101 or Higher, Coldness, Increased Pain, Numbness or Tingling, Change in Color, Inability to urinate, Inability to have a bowel movement, Shortness of breath, Dizziness, Fainting spells, Swelling in the ankles, Chest pain, Prolonged hiccupping, Increased palpitations (irregular heartbeat) and Calf discomfort Follow Up Care When: IN 2 WEEKS Test Results: Test results from this visit will be discussed in further detail at your follow- up appointment, if applicable. Discharge Plan Admission Admit Date/Time: 06/23/22 12:03 Primary Reason for Your Visit: acute anemia and GI Bleed, peg tube malfunction Attending Provider: True Linton Primary Care Provider: Bertin Feliz Discharge Orders/Prescriptions Prescriptions: New sennosides-docusate sodium [Stool Softener-Stimulant Laxat] 8.6-50 mg Tablet 2 tab PO BID PRN PRN (Reason: Constipation) Qty: 0 0RF Continued acetaminophen [Tylenol] 325 mg Tablet 650 mg PO Q6H PRN PRN (Reason: Pain Score 1-10) Qty: 1 0RF nitroglycerin [Nitrostat] 0.4 mg tablet, sublingual 0.4 mg sublingual Q5M PRN (Reason: chest pain) Qty: 1 0RF Rx Instructions: do not exceed 3 doses per episode amlodipine 2.5 mg Tablet 2.5 mg PO DAILY Qty: 30 0RF fluticasone propionate 50 mcg/actuation [place],Suspension 2 spray INTRANASAL DAILY Qty: 1 0RF Rx Instructions: administer into each nostril ondansetron 4 mg tablet,disintegrating 4 mg PO Q8H PRN PRN (Reason: nausea and vomiting) Qty: 10 0RF sertraline 100 mg tablet 100 mg PO DAILY promethazine 25 mg tablet 25 mg PO Q6H PRN (Reason: Nausea) Label Comments: Take 1 tablet by mouth every 6 hours as needed. FOR NAUSEA atorvastatin 40 mg tablet 40 mg PO QHS amoxicillin-pot clavulanate 600-42.9 mg/5 mL suspension for reconstitution 5 ml PO BID 5 Days Qty: 50 0RF Changed pantoprazole [Protonix] 40 mg Tablet,Delayed Release (Dr/Ec) 40 mg PO BIDCM 30 Days Qty: 60 2RF Rx Instructions: 40 mg twice daily for 8 weeks and then once daily Held aspirin 81 mg Tablet,Chewable 162 mg PO DAILY Qty: 60 0RF Hold Instructions: Hold for 5 days. Referrals / Follow Up: Bertin Feliz MD [Primary Care Provider] - Ignacio Duron DO [Med Staff - Active Staff] - Within 1 Month (for esophageal adenocarcinoma) Juancho Oropeza MD [Med Staff - Active Staff] - Within 2 Weeks (Mediport placement) Disposition Disposition (needs filled in before D/C Order can be placed): Home, Self Care
[2022-06-26 07:59] LABS: Reactive Lymphocyte 1+
[2022-06-26 09:24] LABS: Pathologist Review Reviewed
[2022-06-26 09:28] VITALS: O2SAT 97
[2022-06-26 09:54] VITALS: BP 101/64; PULSE 89; RESP 15; TEMP 37.3; O2SAT 97
[2022-06-26 10:05] VITALS: BP 107/79; PULSE 95; RESP 18; TEMP 36.4; O2SAT 100
[2022-06-26] MEDS: Sertraline 100 MG Tablet PO (10:09)
[2022-06-26] MEDS: Ensure Plus High Protein 120 ML LIQUID PO (10:09)
[2022-06-26] MEDS: Fluticasone 0.05% 1 SPRAY NASAL.SRY 2 SPRAY NASAL (10:09)
--- NOTE | 2022-06-26 10:57 | CASEMGMT ---
YAMILE TEE in to discuss discharge plans with patient and aunt, Payton REECE. Per Payton, patient was to have a med port placed [facility] while patient was admitted. YAMILE TEE explained that his med port procedure was an outpatient procedure and will have to follow-up as an outpatient. Payton voiced understanding and will follow up with outpatient surgeon. Per Payton, patient's Kangaroo pump for tube feeds was not working properly and requesing [facility] nurse to come check on pump. Payton also requesting rhett for POA paperwork. Payton had no further questions or concerns at this time. YAMILE TEE contacted assistant teacher for assistance with notary. YAMILE TEE updated [facility] of planned discharge today and concerns regarding Kangaroo pump. YAMILE TEE also updated paediatric physiotherapist regarding tube feeds. NAY will sent discharge instructions and summary when available to [facility]. CM will continue to follow this patient and plan for a safe discharge.
--- NOTE | 2022-06-26 11:04 | DS.PCM_ITS ---
Providers Date of Admission: 06/23/22 Date of Discharge: 06/26/22 Primary Care Physician: Dr. Bertin Feliz MD Consultations 06/23/22 12:28 Consult: Onc/Wound/pressurizer Routine Comment: Reason for Consult:: peg tube infection 06/23/22 12:35 Consult: Gastroenterology Routine Consulting Provider: [facility] Reason for Consult: severe anemia, peg tube malfunction EMERGENT Consult: No MD Notified: Yes Date Notified: 06/23/22 Time Notified: 12:35 Method of Notification: ED Physician Initiated Reason For Visit: ANEMIA Diagnosis Discharge Diagnosis (1) Abnormal LFTs: Status: Acute Code(s): R79.89 - Other specified abnormal findings of blood chemistry (2) PEG tube malfunction: Status: Acute Code(s): K94.23 - Gastrostomy malfunction (3) Acute anemia: Status: Acute Code(s): D64.9 - Anemia, unspecified Plan This is a 52-year-old gentleman being admitted for evaluation of acute anemia and PEG tube malfunction. 1. Acute on chronic normocytic normochromic anemia probably due to chemotherapy/advanced esophageal cancer and iron deficiency anemia: Patient is being admitted in PCU. Patient did not had recent acute GI blood loss in the last 3 to 4 weeks. He had mild bleeding around the PEG tube. Anemia work-up ordered. GI is consulted and discussed with him. Plan for EGD tomorrow AM. His hemoglobin was 10 to 11 g in September 2021, 9.8 on June 01, 2022 and today 7.9. H&H every 6 hourly. Type and crossmatch. Patient on IV PPI drip and octreotide drip. 06/24: Hemoglobin is low 7.1/23.4%. Heart rate and blood pressure in normal range though BP is on lower side, chronically. 1 unit PRBC transfusion ordered. Plan for EGD today 06/25: Hemoglobin improved to 8.7, platelet count 281,000. 06/26: Anemia work-up shows high ferritin, low TIBC and serum iron normal range. Transferrin saturation 95% therefore patient does not have iron deficiency anemia. B12 also high. Reticulocyte count and immature reticulocyte fraction is low suggestive of low bone marrow function or depressed bone marrow Function. Advised to follow-up with heme-onc. Patient discharged on 40 mg p.o. twice daily. Final hemoglobin is 9.5/30%. 2. PEG tube malfunction: Some purulent drainage along with staining of bile and on the dressing. Patient is started on IV Unasyn. Patient has leukocytosis with right shift which may be from infection, and esophageal cancer. G astroenterologist aware of PEG tube malfunction. Patient had PEG tube placed outside by Dr. Dwyer in [facility] when he was admitted about a month ago. Patient can swallow full liquid diet. 06/24: Speech therapy evaluation. Continue IV antibiotic 06/30: PEG tube was changed yesterday. EGD shows large partially obstructing esophageal carcinoma from proximal to distal. PEG tube feeding started. Mild hypokalemia, potassium getting replaced. Mild hyponatremia. Patient started on tube feed. 06/26: Continue home tube feeding as prescribed by PCP. 5 more days of oral Augmentin prescription given. Patient had IV Unasyn during hospital course. 3. Advanced esophageal cancer with possible metastasis to left lobe of liver and retroperitoneal lymph node: CT abdomen pelvis with IV contrast individually reviewed. It shows a large esophageal mass with multiple masses in the left lobe of liver consistent with metastatic lesions. Soft tissue mass in epigastrium anterior and superior to pancreas which is most probably retroperitoneal lymph node. Patient had 3 sessions of chemotherapy with Dr. Eastman. There is plan for Mediport in the next 2 to 3 days which needs to be postponed until patient clears infection. This is scheduled WITH Dr. Golden. 06/26: Patient's POA stated that patient to have Mediport while here. She further said Dr. Farias wanted one of our surgeon to do it while here. business affairs manager mohamud convinced that this is an outpatient procedure and will not be covered for this hospital stay therefore follow-up with either Dr. Golden or Christopher surgeon for elective Mediport placement. 4. Atherosclerotic coronary artery disease status post CABG, left anterior hemiblock: Patient follows in cardiology clinic with Martina. Patient enlarged cardiac cath in September 2021 reported triple-vessel disease involving long LAD, circumflex artery lesion and distal RCA with EF 50%. At that time patient had CABG outside.Most recent echo in August 2021 reported EF 60%, mild MR. 5. Other comorbidities include GERD, allergic rhinitis, dyslipidemia, severe anxiety disorder and panic attack: Patient also has congenital developmental disorder. 6. Patient used to chew tobacco, smokeless tobacco. He quit chewing tobacco after diagnosis of esophageal cancer. DVT prophylaxis, high risk: Patient is currently not candidate for pharmacological prophylaxis due to severe anemia. Bilateral SCDs. Living will/advanced directive/end of life care: Patient does have living will or advanced directive. Her aunt is power of city attorney for health. After discussion of benefits/risks procedures involved with full code, DNR CC arrest and DNR CC, the patient and POA agreed for full code. Patient does want artificial life support including intubation, tube feed, v entilator and/chest compression, central venous catheter, vasopressor and DC shock if needed during CODE BLUE situation but does not want to be dependent on life support if the condition is determined a reversible. Discharge medication reconciliation done. Discharge follow-up instructions completed. Discharge process discussed with the patient and all questions were answered to patient's satisfaction. Total time spent, exact 35 minutes on discharge meds reconciliation, examination, coordination of care with nurses and ancillary staff, review of imaging and blood test and discussion with the patient on follow-up instructions. Clinical Impression(s) from Imaging Studies Abdomen/Pelvis CT 06/23/22 10:13 IMPRESSION: Large esophageal mass. Masses are seen in the left lobe of liver in keeping with metastatic deposits. Soft tissue mass in the epigastrium anterior and superior to the pancreas as described. Although findings suggest esophageal carcinoma with metastasis as compared to prior study. Electronically Signed: Sanjeev Cao MD at 11:24 EDT Reading Location ID and State: [facility] / [place] , Service support , Medications at Discharge Home Medications acetaminophen 325 mg tablet (Tylenol) 650 mg PO Q6H PRN PRN Pain Score 1-10 #1 TAB 10/15/21 amlodipine 2.5 mg tablet 2.5 mg PO DAILY bp #30 tabs 10/15/21 aspirin 81 mg chewable tablet 162 mg PO DAILY heart #60 tabs 10/15/21 fluticasone propionate 50 mcg/actuation nasal spray,suspension 2 spray intranasal DAILY allergies #1 g 10/15/21 nitroglycerin 0.4 mg sublingual tablet (Nitrostat) 0.4 mg sublingual Q5M PRN chest pain #1 BOTTLE 10/15/21 ondansetron 4 mg disintegrating tablet 4 mg PO Q8H PRN PRN nausea and vomiting #10 tabs 06/01/22 atorvastatin 40 mg tablet 40 mg PO QHS CHOLESTEROL 06/23/22 promethazine 25 mg tablet 25 mg PO Q6H PRN Nausea 06/23/22 sertraline 100 mg tablet 100 mg PO DAILY MOOD 06/23/22 amoxicillin 600 mg-potassium clavulanate 42.9 mg/5 mL oral suspension 5 ml PO BID 5 days #50 mL 06/26/22 mupirocin 2 % topical ointment 1 applic topical BID 7 days #22 grams 06/26/22 pantoprazole 40 mg tablet,delayed release (Protonix) 40 mg PO BIDCM gerd 30 days #60 tabs 06/26/22 sennosides 8.6 mg-docusate sodium 50 mg tablet (Stool Softener-Stimulant Laxative) 2 tab PO BID PRN PRN Constipation #0 tabs 06/26/22 Physical Exam Narrative Seen and examined. Patient abdominal pain has almost resolved. PEG tube was removed as it was infected. New PEG tube, externally removable was inserted on 06/24/2022. Patient had EGD. Physical exam General: Alert, Oriented x3, Cooperative, moderate chronic protein calorie malnutrition HEENT: Atraumatic, PERRLA, EOMI, Normocephalic Oral: Dental caries. Oral mucosa moist. No acute oral ulcer. Neck: Supple, No JVD, Negative Carotid Bruits Lungs: Air entry diminished in bilateral lung bases. No crepitation/rhonchi Cardiovascular: CABG scar. Regular rate, Regular Rhythm, Normal S1, Normal S2, No murmurs Abdomen: Soft, PEG tube functioning well. No tenderness. No acute drainage around PEG tube. Bowel Sounds Present. No palpable mass. : No renal angle tenderness. No suprapubic tenderness. Extremities: No edema, Capillary Refill Less than 3 Seconds Skin: Neurofibromatosis nodules. Musculoskeletal: No Tenderness to Palpation of Joints or Extremities. Muscle strength 4+/5 at knees and hip joints. Neurological: Cranial nerves II-XII grossly intact, DTR 2+/4 and Symmetrical, Neuro grossly intact Psych/Mental Status: Flat affect. Medical Records Data Medical Nutrition Assessment Dietitian: Malnutrition Criteria Met Start: 05/02/23 12:11 Freq: Status: Active Protocol: Document 06/25/22 13:59 AG (Rec: 06/25/22 13:59 AG [id number]) Nutrition Malnutrition Evidence of Malnutrition Exists Yes Malnutrition (severe): Chronic Evidenced By Suboptimal Energy Intake ( Severe),Weight Loss (Severe), Physical Changes (Severe) Clinical Problem Chronic Disease or Condition Related Malnutrition Etiology severe, chronic malnutrition related to inadequate energy intake w/ increased energy needs d/t esophageal cancer Signs/Symptoms as evidenced by unintentional 46.8#/30% weight loss x 6 months, estimated energy intake meeting <75% of estimated energy needs > 3 months; Obvious severe muscle wasting/fat loss evident per physical exam in orbital, clavicle, acromion, and temporal areas Status Active Problem Recommendation Dietitian Recommendations/Changes 1) Do not anticipate pt will be meeting estimated energy needs via PO diet. Pt appears hesitant to oral nutrition supplements and to use of PEG. Will aim to meet at least 50% of calorie needs via PEG- Pivot 1.5 240mL bolus 3x/day w / 90mL H2O flush before and after each bolus to provide 1080 calories, 67.5 g protein, and 1080mL total fluid/day. Would start w/ 120mL for first bolus; increase by 60mL w/ each bolus as tolerated until goal volume is achieved. 2) Continue full liquid diet as tolerated. Will add 120mL ensure plus high protein w/ medpass. 3) Will monitor intake at meals and adjust ONS/EN as indicated. 4) Daily wts. Close monitoring of labs/electrolytes. Weight / BMI Weight Weight: 105 lb 13.15 oz Body Mass Index (BMI) 18.7 ABG / Lab / Microbiology Data Result Diagrams: 06/26/22 05:50 06/26/22 05:50 Laboratory: Laboratory Results - last 24 hr 06/25/22 04:47: Diff Path Review Reviewed 06/25/22 04:47: Retic Count 0.27 L, Immature Retic Fraction 0.80 L, Retic Hgb Equivalent 32.8 06/25/22 04:47: Iron 140, TIBC 147 L, Iron Saturation 95.2 H, Ferritin 893 H, Folate 8.10 06/25/22 16:28: Vitamin B12 1087 H 06/26/22 05:50: WBC 1.6 L, RBC 3.49 L, Hgb 9.5 L, Hct 30.0 L, MCV 86.0, MCH 27.2, MCHC 31.7 L, RDW Std Deviation 50.4 H, RDW Coeff of Inez 15.9 H, Plt Count 257, MPV 8.7, Immature Gran % (Auto) 3.700 H, Neut % (Auto) 62.3, Lymph % (Auto) 22.2, [place] % (Auto) 9.3, Eos % (Auto) 0.6, Baso % (Auto) 1.9 H, Absolute Neuts (auto) 1.0 L, Absolute Lymphs (auto) 0.36 L, Nucleated RBC % 0, Diff Path Review June, Reactive Lymphocytes 1+ 06/26/22 05:50: Sodium 134 L, Potassium 4.0, Chloride 105, Carbon Dioxide 19.0 L , Anion Gap 10, BUN 12, Creatinine 0.43 L, Estim Creat Clear Calc 139.53, Est GFR (MDRD) Af Amer 267, Est GFR (MDRD) Non-Af 221, BUN/Creatinine Ratio 27.7 H, Glucose 139 H, Calcium 8.5 D/C Instructions Discharge Diet: - (Resume home tube feed ) Weight Bearing Status: Weight bearing as tolerated Call your doctor if you observe: Fever of 101 or Higher, Coldness, Increased Pain, Numbness or Tingling, Change in Color, Inability to urinate, Inability to have a bowel movement, Shortness of breath, Dizziness, Fainting spells, Swelling in the ankles, Chest pain, Prolonged hiccupping, Increased palpitations (irregular heartbeat) and Calf discomfort When: IN 2 WEEKS Meaningful Use Info Meaningful Use Diagnoses (Choose all that apply): None applicable Discharge Plan Admission Admit Date/Time: 06/23/22 12:03 Primary Reason for Your Visit: acute anemia and GI Bleed, peg tube malfunction Attending Provider: True Linton Primary Care Provider: Bertin Feliz Discharge Orders/Prescriptions Prescriptions: New sennosides-docusate sodium [Stool Softener-Stimulant Laxat] 8.6-50 mg Tablet 2 tab PO BID PRN PRN (Reason: Constipation) Qty: 0 0RF mupirocin 2 % ointment 1 applic topical BID 7 Days Qty: 22 0RF Rx Instructions: To apply around PEG/feeding tube Continued acetaminophen [Tylenol] 325 mg Tablet 650 mg PO Q6H PRN PRN (Reason: Pain Score 1-10) Qty: 1 0RF nitroglycerin [Nitrostat] 0.4 mg tablet, sublingual 0.4 mg sublingual Q5M PRN (Reason: chest pain) Qty: 1 0RF Rx Instructions: do not exceed 3 doses per episode amlodipine 2.5 mg Tablet 2.5 mg PO DAILY Qty: 30 0RF fluticasone propionate 50 mcg/actuation [place],Suspension 2 spray INTRANASAL DAILY Qty: 1 0RF Rx Instructions: administer into each nostril ondansetron 4 mg tablet,disintegrating 4 mg PO Q8H PRN PRN (Reason: nausea and vomiting) Qty: 10 0RF sertraline 100 mg tablet 100 mg PO DAILY promethazine 25 mg tablet 25 mg PO Q6H PRN (Reason: Nausea) Label Comments: Take 1 tablet by mouth every 6 hours as needed. FOR NAUSEA atorvastatin 40 mg tablet 40 mg PO QHS amoxicillin-pot clavulanate 600-42.9 mg/5 mL suspension for reconstitution 5 ml PO BID 5 Days Qty: 50 0RF Changed pantoprazole [Protonix] 40 mg Tablet,Delayed Release (Dr/Ec) 40 mg PO BIDCM 30 Days Qty: 60 2RF Rx Instructions: 40 mg twice daily for 8 weeks and then once daily Held aspirin 81 mg Tablet,Chewable 162 mg PO DAILY Qty: 60 0RF Hold Instructions: Hold for 5 days. Referrals / Follow Up: Juancho Oropeza MD [Med Staff - Active Staff] - Within 2 Weeks (Mediport placement) Bertin Feliz MD [Primary Care Provider] - 07/03/22 2:20 pm Kathleen Sagastume CATERPILLAR MECHANIC, CATERPILLAR MECHANIC-C [Med Staff - Adv Practice Prof] - 08/14/22 3:00 pm Disposition Disposition (needs filled in before D/C Order can be placed): Home, Self Care Charges/Coding Visit Charges Inpatient E&M: 52738 Disch Hosp >30min
[2022-06-26 11:09] VITALS: BP 107/79; PULSE 95; RESP 18; TEMP 36.4; O2SAT 100
--- NOTE | 2022-06-26 11:35 | NS ---
Addendum entered and electronically signed by Henny Lott 06/26/22 12:16: Spoke w/ [facility] dietitian Verito Jass (phone #[phone]) who follows w/ pt. Pt had an order for Isosource 1.5 at home- 46mL/hour w/ 120mL H2O flush every 3 hours. Pt was originally on bolus feeds but did not tolerate. However, family told this RDN that pt/family were refrigerating formula prior to administration, so in combination of infected PEG and cold formula may have been reason for intolerance. Verito faxed home enteral script to PCU, passed on to YAMILE TEE. Also updated Verito that new PEG is a Legacy connection, not EN FIT. Verito to follow-up w/ pt after discharge. Calderon Lott MS, RDN, LD Original Note: Pt ready for discharge. Spoke w/ pt's aunt, Payton. Payton states home enteral nutrition is ordered and managed by [facility]. She has cartons of enteral nutrition at home but does not know the name of product. Pt was getting continuos enteral nutrition of 5 cartons/day via pump prior to PEG malfunction because pt was not tolerating syringe feeding. Payton states kangroo pump at home is also not working properly. PEG was replaced this admission and pt has been tolerating bolus syringe feeds via PEG. Recommended pt continue boluses of home enteral nutrition upon discharge (at least 3 cartons/day because pt is tolerating a full liquid diet) and that pt and Payton need to follow-up w/ dietitian at [facility] for further recommendations. Pt has syringes at home from old PEG. However per Payton, she believes old PEG had an EN FIT connection and it appears replaced PEG has a Legacy connection. Nursing to provide pt w/ appropriate syringes prior to discharge today. Gathered information relayed to YAMILE Yeager who will send this information to [facility] who will be following up w/ pt after discharge. Did provide Payton w/ RDN contact information in the event they cannot reach [facility] dietitian and need further assistance after discharge. Calderon Lott MS, RACHAELN, LD
[2022-06-27 10:03] LABS: Pathologist Review Reviewed
== END 2022-06-26 14:02 | disposition home health service (06) | DRG 375 ==
LOC: ED 14:52 → PCU 15:44
PROVIDERS: Internal Medicine Gastroenterology; Admitting Provider Internal Medicine; Emergency Provider Student in an Organized Health Care Education/Training Program; PCP Internal Medicine; Visit Provider Internal Medicine
PROC: 0DJ08ZZ Inspection of Upper Intestinal Tract, Via Natural or Artificial Opening Endoscopic (ICD-10-PCS; CPT 43235; principal; 2022-06-24 15:55)
DX: C15.8 Malignant neoplasm of overlapping sites of esophagus (principal); C77.1 Secondary and unspecified malignant neoplasm of intrathoracic lymph nodes; K94.22 Gastrostomy infection; D62 Acute posthemorrhagic anemia; E87.1 Hypo-osmolality and hyponatremia; C78.7 Secondary malignant neoplasm of liver and intrahepatic bile duct; C7A.8 Other malignant neuroendocrine tumors; K94.23 Gastrostomy malfunction; K22.2 Esophageal obstruction; E78.5 Hyperlipidemia, unspecified; D63.0 Anemia in neoplastic disease; J30.9 Allergic rhinitis, unspecified; I25.10 Atherosclerotic heart disease of native coronary artery without angina pectoris; I10 Essential (primary) hypertension; E87.6 Hypokalemia; K21.9 Gastro-esophageal reflux disease without esophagitis; I25.2 Old myocardial infarction; F41.9 Anxiety disorder, unspecified; F88 Other disorders of psychological development; T45.1X5A Adverse effect of antineoplastic and immunosuppressive drugs, initial encounter; R13.10 Dysphagia, unspecified; Z79.82 Long term (current) use of aspirin; Z79.899 Other long term (current) drug therapy; Z87.891 Personal history of nicotine dependence; Z95.1 Presence of aortocoronary bypass graft
CPT/HCPCS: 36415; 74177; 80048; 80053; 82607; 82728; 82746; 83540; 83550; 83690; 83735; 84100; 85014; 85018; 85025; 85045; 86850; 86900; 86901; 86920; 86922; 92610; 94668; 97161; 97165; 97802; 97803; 99252; 99285; J7030; J7040; J7120; P9016; Q9967; A4216; G0463; J0295; J2405

== ENCOUNTER → 2022-06-30 | Outpatient (CLI) | payer MEDICARE, MEDICAID, SELFPAY ==
[2022-06-30 10:54] LABS: International Normalized Ratio 1.1; Partial Thromboplast Time 29.6 Seconds (24.1-36.2); Prothrombin Time (Protime)PT. 13.9 SECONDS (11.7-14.9)
== END | disposition home or self-care (01) ==
LOC: PAVLAB 10:24
PROVIDERS: PCP Internal Medicine; Referring Provider Surgery; Visit Provider Surgery
DX: K76.0 Fatty (change of) liver, not elsewhere classified (principal)
CPT/HCPCS: 36415; 85610; 85730

== ENCOUNTER 2022-07-04 05:02 | Day surgery (SDC) | payer MEDICARE, MEDICAID, SELFPAY ==
[2022-07-04] VITALS (7 sets, daily range): BP systolic 97–114; BP diastolic 61–68; PULSE 82–88; RESP 15–18; TEMP 36.4–37.2; O2SAT 99–100; BMI 18.6
[2022-07-04] MEDS: Lactated Ringers 1,000 ML 15 ML IV (06:44)
--- NOTE | 2022-07-04 06:53 | HP.PCM_ITS ---
History and Physical Date of Admission: 07/04/22 Intake Vital Signs ? 06/25/2312:50 06/30/2308:41 Height 5 ft 3 in 5 ft 3 in Weight: ? 108 lb 2 oz BMI ? 19.1 BP ? 99/67 Blood Pressure Location ? Rt radial Position ? Sitting Respiration ? 16 Pulse ? 109 H Pulse Source ? Monitor Pulse Oximetry (%) ? 98 Intake Visit Reasons:?PORT PLACEMENT Chief Complaint: PORT PLACEMENT Allergies No Known Allergies Allergy (Verified 06/23/22 08:37) Medications acetaminophen 325 mg tablet (Tylenol) 650 mg PO Q6H PRN PRN Pain Score 1-10 #1 TAB 10/15/21 [Rx Confirmed 06/30/22] amlodipine 2.5 mg tablet 2.5 mg PO DAILY bp #30 tabs 10/15/21 [Rx Confirmed 06/23/22] aspirin 81 mg chewable tablet 162 mg PO DAILY heart #60 tabs 10/15/21 [Rx Confirmed 06/30/22] fluticasone propionate 50 mcg/actuation nasal spray,suspension 2 spray intranasal DAILY allergies #1 g 10/15/21 [Rx Confirmed 06/30/22] nitroglycerin 0.4 mg sublingual tablet (Nitrostat) 0.4 mg sublingual Q5M PRN chest pain #1 BOTTLE 10/15/21 [Rx Confirmed 06/30/22] ondansetron 4 mg disintegrating tablet 4 mg PO Q8H PRN PRN nausea and vomiting #10 tabs 06/01/22 [Rx Confirmed 06/30/22] atorvastatin 40 mg tablet 40 mg PO QHS CHOLESTEROL 06/23/22 [History Confirmed 06/30/22] promethazine 25 mg tablet 25 mg PO Q6H PRN Nausea 06/23/22 [History Confirmed 06/30/22] sertraline 100 mg tablet 100 mg PO DAILY MOOD 06/23/22 [History Confirmed 06/30/22] amoxicillin 600 mg-potassium clavulanate 42.9 mg/5 mL oral suspension 5 ml PO BID 5 days #50 mL 06/26/22 [Rx Confirmed 06/30/22] mupirocin 2 % topical ointment 1 applic topical BID 7 days #22 grams 06/26/22 [Rx] pantoprazole 40 mg tablet,delayed release (Protonix) 40 mg PO BIDCM gerd 30 days #60 tabs 06/26/22 [Rx Confirmed 06/30/22] sennosides 8.6 mg-docusate sodium 50 mg tablet (Stool Softener-Stimulant Laxative) 2 tab PO BID PRN PRN Constipation #0 tabs 06/26/22 [Rx Confirmed 06/30/22] PFSH Medical History?(Updated 06/30/22 @ 10:[address] Juancho Oorpeza MD) Allergic rhinitis Anxiety Atherosclerosis of coronary artery without angina pectoris Cancer Cognitive developmental delay Coronary artery disease Esophageal cancer Essential hypertension Gallbladder sludge GERD (gastroesophageal reflux disease) GERD (gastroesophageal reflux disease) Hyperlipemia Left anterior hemiblock Myocardial infarct Nephrolithiasis Neurofibromatosis Nicotine dependence Non-STEMI (non-ST elevated myocardial infarction) (09/22/21) Stenosis of right carotid artery Surgical History? H/O coronary artery bypass surgery (09/26/21) History of appendectomy History of left heart catheterization (09/23/21) Family History? Mother CAD (coronary artery disease) ?? ? Had heart surgery at 49 YOA HyperlipidemiaFather HyperlipidemiaBrother Asthma Social History? household members:? other details: lives in a correction housing:? other details: senior living Smoking Status:? Former smoker quit date: 02/23/91 pack-years: 2 Tobacco: How many years used:? 2 Smokeless tobacco user:? chewing tobacco alcohol intake:? never substance use type:? does not use HPI HPI HPI: 52-year-old male here for port placement.? Patient has metastatic esophageal cancer and here for port for treatment.? He is underwent 3 treatments already.? He is due for his next treatment next week.? Patient did have some vomiting today. ROS General General: Yes weight change and fatigue; No appetite, colon cancer, breast cancer or weakness HEENT HEENT: No difficulty swallowing, eye injury, eye surgery, swollen glands or hoarseness Endo Endocrine: No thyroid disease, diabetes mellitus, thyroid cancer, Hair loss, heat intolerance or cold intolerance Skin Skin: No rash or changing moles Breast Breast: No left breast lump, right breast lump, nipple discharge, breast pain, abnormal mammogram, abnormal US or breast enlargement Musc Musculoskeletal: Yes back problems; No arthritis, rheumatoid arthritis, gout or joint pain Cardio Cardiovascular: Yes heart attack; No murmur, pacemaker, heart disease, atrial fibrillation, high blood pressure, heart stent, palpitations, shortness of breat with exertion or chest pain Psych Psychiatric: Yes anxiety; No depression or hearing voices Resp Respiratory: Yes shortness of breath, No sleep apnea, Yes cough, No COPD, No asthma, No emphysema and No wheezing Gastro Gastrointestinal: No abdominal pain, Yes nausea or vomiting, No diarrhea, No constipation, No blood in stool, Yes acid reflux, No hemorrhoids, No ulcers, No gallbladder problem and No black,tarry stools Gomez Hematologic: No blood thinners, No blood disorders, No bleeding, No anemia and No blood clots Neuro Neurologic: No system reviewed and no additional complaints, except as documented, No as per HPI, No abnormal gait, No abnormal hearing, No abnormal movements, No abnormal speech, No behavioral changes, No burning sensations, No confusion, No convulsions, No disequilibrium, No dizziness, No localized weakness, No frequent falls, No headache(s), No lack of coordination, No loss of vision, No memory loss, No numbness, No other visual disturbances, No radicular pain, No restless legs, No sensory deficit, No syncope, No tingling, No tremor(s), No weakness and No other Exam Const General: cooperative Orientation: alert and oriented x3 HENMT Head: normal to inspection Neck Neck: normal visual inspection and full ROM Chest Chest palpation & inspection: normal inspection of the chest Resp Effort & Inspection: normal respiratory effort Auscultation: clear to auscultation bilaterally Cardio Rate: regular rate Rhythm: regular rhythm GI Inspection: non-distended Palpation: soft and nontender Skin General: no rashes or lesions noted Neuro General: patient alert and patient oriented x3 Extrem General: full ROM Psych Appearance: grossly normal Mental Status: mental status grossly normal Assessment and Plan Assessment and Plan (1) Cancer: ?Status:?Acute ?Comment: ?cancer of esophagus and mets to liver (2) Encounter for insertion of venous access port: ?Status:?Acute ? ? ? Orders: Orders Partial Thromboplast Time Today K76.0 - Fatty (change of) liver, not elsewhere classified ? Prothrombin Time w/INR Today K76.0 - Fatty (change of) liver, not elsewhere classified ? Plan The patient requires port placement for treatment for esophageal cancer.? I will try to get him in before his next treatment.? There is some concern for infection as his last white count was only 1.6.? Patient also has some jaundice and elevated LFTs and I will check an INR to see if his coagulation profile is abnormal.? I discussed port placement with the patient and the risks of bleeding, infection, DVT, line infection or pneumothorax.? Patient understands the risks and I will schedule him for surgery. Juancho Oropeza MD Pager: [facility] [address] [place] [address] [address] [place] [address] Office: I have seen and examined the patient and reviewed the H&P. THere are no changes
[2022-07-04] MEDS: Cefazolin 2 GM in 0.9% Normal Saline 100 ML IV (07:22)
[2022-07-04] MEDS: Lidocaine 1% /Epi 1:100 (20ml) 20 ML Vial (07:42)
[2022-07-04] MEDS: Bupivacaine Mpf 0.5% 30 ML VIAL (07:42)
--- NOTE | 2022-07-04 08:05 | RAD_ITS ---
STUDY: X-RAY CHEST REASON FOR EXAM: Male, 52 years old. Port placement TECHNIQUE: Single AP portable view of the chest. COMPARISON: Comparison is made with prior study dated September 22, 2021. FINDINGS: A right-sided portacatheter is seen with the tip in the right atrium. EKG electrodes are seen. The lungs are clear and expanded. There is no demonstrated pleural abnormality. Sternal cerclage wires and vascular clips are present from a prior sternotomy and coronary artery bypass graft procedure (CABG). Mild increased markings in the posterior medial segment of the left lower lobe suggestive of either atelectasis and/or scarring. Normal mediastinum and joe. Normal visualized pulmonary arteries. Normal visualized aortic arch and descending thoracic aorta. Normal visualized thoracic spine. Normal visualized ribs, clavicles, and shoulders. A PEG tube is seen in the left upper quadrant. RAD/CXR for Line Placement IMPRESSION: The tip of the right portacatheter is in the right atrium. Mild increased markings in the posterior medial segment of the left lower lobe suggestive of either atelectasis and/or scarring. Prior CABG as compared to prior study. Electronically Signed: Sanjeev Cao MD at 8:58 EDT ,
--- NOTE | 2022-07-04 08:09 | OP.PCM_ITS ---
Report of Operation Date of Procedure: 07/04/22 Pre-Operative Diagnosis: Esophageal cancer need for vascular access for chemoth erapy Post-Operative Diagnosis: Same Surgery/Procedure Performed:: Ultrasound and fluoroscopy guided right chest port placement utilizing right IJ Description of Procedure: After obtaining informed consent patient was brought back to the operating room MAC anesthesia was induced and the right chest and neck were prepped in normal sterile fashion. Ultrasound was used to evaluate both IJs and the right IJ was selected. Next, using a needle, the right IJ was accessed and a guidewire was passed on into the superior vena cava under fluoroscopy guidance. A small incision was made over the puncture site and the dilator introducer was placed over the guidewire. Next this was capped and the pocket was made for the port. 1% lidocaine with epinephrine was injected in the proposed port site. An incision was made with scalpel. Electrocautery was used to make a pocket under the skin and subcutaneous tissue. Hemostasis was obtained. Next, the catheter was tunneled up to the neck incision site and placed through the introducer. The peel-away introducer was removed and the position of the catheter was con firmed on fluoroscopy. Next, the catheter was trimmed and attached to the port with the locking device. Interrupted 2-0 Vicryl sutures were used to anchor the port to the chest wall and then the port was placed inside the pocket. The pocket was then flushed with saline and the port irrigated with saline. There was good blood return and the port flushed easily. Next, heparin was injected into the port. The skin was closed with subcutaneous interrupted 3-0 Vicryl sutures. A single 3-0 Vicryl sutures placed under the skin at the neck incision site. Steri-Strips were placed as well as op sites. Patient tolerated procedure well, was taken to PACU in stable condition. Chest x-ray will be obtained. Grafts/Implants Used: 8 Divehi PowerPort Admit VTE Documentation VTE Mechan Device Prophylaxis: SCD's
--- NOTE | 2022-07-04 08:11 | DCINST_ITS ---
Discharge Instructions Procedure Port-A-Cath Diet Discharge Diet: Light diet - advance as tolerated (Pain medication may cause nausea. You should typically eat light foods as you take your pain medication.) Activity Discharge Activity: Return to Normal Activity and May Shower (with your bandage in place in 1-2 days after surgery. DO NOT SHOWER WHEN YOUR PORT IS ACCESSED.) Dressing / Incision Call your doctor if your incision/area has: Continuous Slow Oozing, Sudden Increased Bleeding, Increased Pain/ Swelling, Increased Redness and Foul Smelling Discharge Call your doctor if you observe: Fever of 101 or Higher Remove Dressing in: 2 days Cleanse incision/area with: Soap & Water Follow Up Care Please Follow Up With: Juancho Oropeza MD When: as needed [phone] Test Results: Test results from this visit will be discussed in further detail at your follow- up appointment, if applicable. Discharge Plan Admission Attending Provider: Juancho Oropeza Primary Care Provider: Bertin Feliz Instructions Additional Instructions / Restrictions: Ibuprofen and Tylenol for pain. Okay to use port later this week Discharge Orders/Prescriptions Prescriptions: No Action acetaminophen [Tylenol] 325 mg Tablet 650 mg PO Q6H PRN PRN (Reason: Pain Score 1-10) Qty: 1 0RF nitroglycerin [Nitrostat] 0.4 mg tablet, sublingual 0.4 mg sublingual Q5M PRN (Reason: chest pain) Qty: 1 0RF Rx Instructions: do not exceed 3 doses per episode fluticasone propionate 50 mcg/actuation [place],Suspension 2 spray INTRANASAL DAILY Qty: 1 0RF Rx Instructions: administer into each nostril sertraline 100 mg tablet 100 mg PO DAILY atorvastatin 40 mg tablet 40 mg PO QHS cetirizine [Zyrtec] 10 mg Tablet 10 mg PO DAILY docusate sodium [Colace] 100 mg Capsule 100 mg PO PRN PRN (Reason: STOOL SOFTENER) colchicine 0.6 mg tablet 0.6 mg PO DAILY metoprolol tartrate 25 mg tablet 25 mg PO BID Referrals / Follow Up: Bertin Feliz MD [Primary Care Provider] - Disposition Disposition (needs filled in before D/C Order can be placed): Home, Self Care
== END 2022-07-04 09:10 | disposition home or self-care (01) ==
LOC: SDC 05:04 → AC 05:15
PROVIDERS: PCP Internal Medicine; Referring Provider Surgery; Visit Provider Surgery
PROC: (CPT 36561; principal; 2022-07-04 07:15)
DX: Z45.2 Encounter for adjustment and management of vascular access device (principal); C78.7 Secondary malignant neoplasm of liver and intrahepatic bile duct; C15.9 Malignant neoplasm of esophagus, unspecified; K76.0 Fatty (change of) liver, not elsewhere classified; I25.10 Atherosclerotic heart disease of native coronary artery without angina pectoris; E78.5 Hyperlipidemia, unspecified; K21.9 Gastro-esophageal reflux disease without esophagitis; F17.221 Nicotine dependence, chewing tobacco, in remission; Z79.82 Long term (current) use of aspirin; Z79.899 Other long term (current) drug therapy; I25.2 Old myocardial infarction; Z95.1 Presence of aortocoronary bypass graft
CPT/HCPCS: 36561; 00532; 71045; 77001; J7120; C1788; J2405

== ENCOUNTER 2022-07-11 06:30 | Emergency (ER) | payer MEDICARE, MEDICAID, SELFPAY ==
[2022-07-11 06:31] VITALS: BP 113/81; PULSE 100; RESP 16; TEMP 36.2; O2SAT 100; BMI 18.6
--- NOTE | 2022-07-11 06:44 | EDS_ITS ---
HPI HPI - GI History of Present Illness Chief Complaint: Nausea/Vomiting Informant: patient Nausea/Vomiting/Emesis GI Symptom: Positive for Nausea and Vomiting Quality: Positive for Hematemesis Diarrhea/Melena/Hematochezia GI Symptom: Negative for Diarrhea, Melena or Hematochezia Associated Symptoms Associated Symptoms: Negative for Dysuria, Frequency or Hematuria Narrative Narrative: Patient presents with hematemesis that began this morning. Patient states he st arted vomiting blood this morning. Patient states he has been vomiting large amount of blood. Patient states it is red blood. Patient denies any diarrhea, melena, or hematochezia. Patient denies any abdominal pain. Patient denies any fevers or chills. Patient denies any urinary complaints. Patient does have a history of esophageal cancer and is currently on chemotherapy. Patient does have a PEG tube. [facility] Medical History Acute anemia Allergic rhinitis Anxiety Atherosclerosis of coronary artery without angina pectoris Cancer Cardiology follow-up encounter Chewing tobacco nicotine dependence in remission Chronic cough Cognitive developmental delay Coronary artery disease Esophageal cancer Essential hypertension Gallbladder sludge Gastric reflux GERD (gastroesophageal reflux disease) GERD (gastroesophageal reflux disease) Hyperlipemia Left anterior hemiblock Myocardial infarct Nephrolithiasis Neurofibromatosis Nicotine dependence Non-STEMI (non-ST elevated myocardial infarction) (09/22/21) Stenosis of right carotid artery Weight loss Home Medications acetaminophen 325 mg tablet (Tylenol) 650 mg PO Q6H PRN PRN Pain Score 1-10 #1 TAB 10/15/21 [Rx Last Taken 06/23/22] fluticasone propionate 50 mcg/actuation nasal spray,suspension 2 spray intranasal DAILY allergies #1 g 10/15/21 [Rx Last Taken 06/22/22] nitroglycerin 0.4 mg sublingual tablet (Nitrostat) 0.4 mg sublingual Q5M PRN chest pain #1 BOTTLE 10/15/21 [Rx Last Taken Unknown] atorvastatin 40 mg tablet 40 mg PO QHS CHOLESTEROL 06/23/22 [History Last Taken 06/22/22] sertraline 100 mg tablet 100 mg PO DAILY MOOD 06/23/22 [History Last Taken 06/23/22] cetirizine 10 mg tablet (Zyrtec) 10 mg PO DAILY 07/02/22 [History Last Taken Unknown] colchicine 0.6 mg tablet 0.6 mg PO DAILY 07/02/22 [History Last Taken Unknown] docusate sodium 100 mg capsule (Colace) 100 mg PO PRN PRN STOOL SOFTENER 07/02/22 [History Last Taken Unknown] metoprolol tartrate 25 mg tablet 25 mg PO BID 07/02/22 [History Last Taken 07/04/22 04:00] Allergy/AdvReac Type Severity Reaction Status Date / Time No Known Allergies Allergy Verified 07/11/22 06:38 Family History Mother CAD (coronary artery disease) Had heart surgery at 49 YOA Hyperlipidemia Father Hyperlipidemia Brother Asthma Surgical History H/O coronary artery bypass surgery (09/26/21) History of appendectomy History of cardiac catheterization History of esophagogastroduodenoscopy (EGD) History of left heart catheterization (09/23/21) S/P percutaneous endoscopic gastrostomy (PEG) tube placement Social History household members: other details: lives in a shelter housing: other details: [facility] Smoking Status: Former smoker quit date: 02/23/91 pack-years: 2 Tobacco: How many years used: 2 Smokeless tobacco user: chewing tobacco alcohol intake: never substance use type: does not use ROS ROS ED Constitutional Constitutional ED: Denies chills or fever(s) Eyes Eyes: Denies blurry vision or change in vision ENT ENT ED: Denies rhinorrhea or sore throat Cardiovascular Cardiovascular: Denies chest pain or palpitations Respiratory/Chest Respiratory/Chest: Denies cough or dyspnea Gastrointestinal Gastrointestinal: Reports nausea and vomiting; Denies abdominal pain, diarrhea or melena Genitourinary Genitourinary ED: Denies dysuria or hematuria Musculoskeletal Musculoskeletal: Denies back pain or neck pain Integumentary Denies abscess or rash Neurologic Neurologic: Denies headache(s) or weakness Allergic/Immunologic Allergic/Immunologic ED: Denies mouth swelling or urticaria EXAM Physical Exam Const Vital Signs: 07/11/22 06:31 Temperature 97.1 F L Temperature Source Temporal Pulse Rate 100 Respiratory Rate 16 Blood Pressure 113/81 H Blood Pressure Mean 91 Pulse Ox 100 Oxygen Delivery Method Room Air Positive well nourished and well developed General Appearance ED: well developed HEENT Reports moist mucous membranes Eyes PERRL and EOMs intact bilaterally Neck supple and no JVD Resp normal respiratory effort and clear to auscultation bilaterally Cardio regular rate and regular rhythm GI non-tender and non-distended Palpation: soft Extremity full ROM General Extremety ED: Negative for edema or tenderness General Extremity: Negative for edema Neuro CN's II-XII intact bilaterally, moves all extremities and no sensory deficits noted Sensorium / Orientation: alert Motor Exam: strength 5/5 throughout Psych mental status grossly normal MDM MDM MDM Narrative Medical decision making narrative: Differential diagnosis includes bleeding from esophageal cancer, upper GI bleeding, coagulopathy, and esophageal varices. CBC will be obtained to assess for anemia and leukocytosis. Comprehensive metabolic profile will be obtained to assess for hepatic function, renal function, and electrolyte abnormality. PT with INR and PTT will be obtained to assess for coagulopathy. Treatment and Re-Evaluation :: Patient was given IV fluids.. Patient will be turned over to the oncoming physician pending lab results. Discharge Plan Triage Chief Complaint: Nausea/Vomiting ED Provider: Robbie Prince Dx/Rx/DC Orders Prescriptions: No Action acetaminophen [Tylenol] 325 mg Tablet 650 mg PO Q6H PRN PRN (Reason: Pain Score 1-10) Qty: 1 0RF nitroglycerin [Nitrostat] 0.4 mg tablet, sublingual 0.4 mg sublingual Q5M PRN (Reason: chest pain) Qty: 1 0RF Rx Instructions: do not exceed 3 doses per episode fluticasone propionate 50 mcg/actuation [place],Suspension 2 spray INTRANASAL DAILY Qty: 1 0RF Rx Instructions: administer into each nostril sertraline 100 mg tablet 100 mg PO DAILY atorvastatin 40 mg tablet 40 mg PO QHS cetirizine [Zyrtec] 10 mg Tablet 10 mg PO DAILY docusate sodium [Colace] 100 mg Capsule 100 mg PO PRN PRN (Reason: STOOL SOFTENER) colchicine 0.6 mg tablet 0.6 mg PO DAILY metoprolol tartrate 25 mg tablet 25 mg PO BID Primary Care Provider: Bertin Feliz Referrals: Bertin Feliz MD [Primary Care Provider] -
[2022-07-11 07:06] LABS: Absolute Lymphocyte Count 0.91 X10^3/uL (0.83-4.51); Absolute Neutrophil Count 5.8 X10^3/uL (2.0-7.7); Basophil# 0.04 X10^3/uL; Basophil% 0.6 % (0-1); Eosinophil# 0.01 X10^3/uL; Eosinophils% 0.1 % (0-5); Hematocrit 27.1 % (40-54); Hemoglobin 8.5 g/dL (13.0-16.5); Lymphocyte # 0.91 X10^3/ul (0.83-4.51); Lymphocyte % 12.6 % (19-41); Mean Corp Hgb Conc 31.4 g/dL (32-36); Mean Corpuscular Hgb 27.5 pg (27.0-32.0); Mean Corpuscular Volume 87.7 fL (80-94); Mean Platelet Vol. 8.4 fl (6.2-12.0); Monocyte# 0.43 X10^3/uL; Monocyte% 5.9 % (0-10); NRBC Flagged by Analyzer 0 % (0-5); Neutrophil % 80.1 % (47-70); POSITIVE COUNT YES; RBC Distribution Width CV 18.1 % (11.6-14.6); RBC Distribution Width SD 56.8 fl (35.1-43.9); Red Blood Count 3.09 M/mm3 (4.6-6.2); White Blood Count 7.2 K/mm3 (4.4-11.0)
[2022-07-11 07:07] VITALS: BP 105/70; PULSE 91; RESP 14; TEMP 36.1; O2SAT 99
[2022-07-11] MEDS: 0.9% Normal Saline 1,000 ML 1000 ML IV (07:07)
[2022-07-11 07:21] LABS: ALB/GLOB Ratio 0.5 RATIO (0.9-2.4); AST(SGOT) 33 U/L (15-37); Alanine Aminotransfer ALT/SGPT 18 U/L (16-61); Alkaline Phosphatase 220 U/L (45-117); Anion Gap 5 (5-15); BUN 15 mg/dL (7-18); BUN/Creat Ratio 32.4 RATIO (10-20); Chloride 109 mmol/L (98-107); Creatinine, Serum 0.46 mg/dL (0.70-1.30); EST Glomerular Filtration Rate 204 mL/min (>60); Est Glom Filt Rate - Afr Amer 247 mL/min (>60); Estimated Creatinine Clearance 129.89 ml/min; Globulin 4.1 g/dL (2.2-4.2); Glucose 84 mg/dL (74-106); Lipase 37 U/L (13-75); Potassium 3.4 mmol/L (3.5-5.1); Protein, Total 6.1 g/dL (6.4-8.2); Sodium Level 137 mmol/L (136-145)
[2022-07-11 07:47] LABS: Differential Indicated SCAN CRITERIA MET; Platelet Count 869 K/mm3 (150-450)
[2022-07-11 07:48] LABS: Platelet Estimate MKD INC (ADEQ)
[2022-07-11 08:38] LABS: International Normalized Ratio 1.1; Prothrombin Time (Protime)PT. 14.6 SECONDS (11.7-14.9)
[2022-07-11 09:26] VITALS: BP 107/67; PULSE 90; RESP 12; O2SAT 100
[2022-07-11 11:18] VITALS: BP 110/70; PULSE 88; RESP 14; O2SAT 99
[2022-07-11 13:17] VITALS: BP 104/68; PULSE 88; RESP 14; O2SAT 100
[2022-07-11 15:16] VITALS: BP 109/69; PULSE 85; RESP 14; O2SAT 99
[2022-07-14 09:45] LABS: Pathologist Review Reviewed
== END 2022-07-11 15:20 | disposition short-term general hospital (02) ==
PROVIDERS: Emergency Provider Emergency Medicine; PCP Internal Medicine; Visit Provider Emergency Medicine
DX: K92.0 Hematemesis (principal); C79.9 Secondary malignant neoplasm of unspecified site; Z93.1 Gastrostomy status; I10 Essential (primary) hypertension; E78.5 Hyperlipidemia, unspecified; F17.220 Nicotine dependence, chewing tobacco, uncomplicated; I25.10 Atherosclerotic heart disease of native coronary artery without angina pectoris; Z85.01 Personal history of malignant neoplasm of esophagus
CPT/HCPCS: 36591; 80053; 83690; 85025; 85610; 85730; 96360; 96361; 99283; J7030; A4216

== ENCOUNTER 2022-07-20 12:06 | Inpatient (IN) | payer MEDICARE, MEDICAID, SELFPAY ==
[2022-07-20 12:07] VITALS: BP 108/75; PULSE 149; RESP 20; TEMP 37.8; O2SAT 97; BMI 18.4
[2022-07-20 12:33] VITALS: PULSE 118; RESP 18; O2SAT 98
--- NOTE | 2022-07-20 12:33 | RAD_ITS ---
HISTORY: Productive cough, fever Hx esophageal cancer. TECHNIQUE: XR Chest 1 View. COMPARISON: 07/04/2022. FINDINGS: CARDIOMEDIASTINAL BORDERS: Cardiac silhouette within normal limits in size. Mediastinal contour unchanged with midline sternotomy and mediastinal clips. Right chest wall port with catheter tip at the distal superior vena cava. Percutaneous gastrostomy tube in the left upper quadrant again seen LUNGS: Radiographically clear. PLEURA: No pleural effusion or pneumothorax seen. OSSEOUS STRUCTURES: Unremarkable. RAD/Chest 1 View (Portable) IMPRESSION: No acute cardiopulmonary process identified. Electronically Signed: Kat Mayorga MD at 13:38 EDT ,
--- NOTE | 2022-07-20 12:36 | EDS_ITS ---
HPI History of Present Illness Chief Complaint: Fever Detail of Chief Complaint: Fever and productive cough Informant: patient, family and other Onset/Context/Timing Onset: Days (4 days ago) Context: Sudden Onset Timing: Continuous and Waxes and wanes Quality: Tmax 101.3 ?F with productive cough. Current Severity: Mild Maximum Severity: Moderate Worsened by: Nothing Relieved by: Nothing Associated Symptoms Associated Symptoms: Poor intake generalized weakness, productive cough Narrative Narrative: Patient is a 52-year-old male who was diagnosed approximately 3 months ago with esophageal cancer. He had an EGD performed by Dr. Duron on June 24 that revealed partial obstruction of the esophagus due to malignant tumor. He underwent vascular procedure by Dr. Oropeza July 04. He presents today because of not feeling well, persistent fever and productive cough. He denies headache, visual, ocular auditory symptoms. He denies rhinorrhea, congestion or sore throat. He denies chest discomfort. He does have a feeding tube in place. His oncologist is Dr. Anand Eastman. Last chemo cycle was approximately 3 weeks ago per family member. He denies dysuria, frequency, urgency or hematuria. He does endorse decreased urine output. He also endorses thirst and dry mouth. He denies rash. He denies his right eye being more prominent than his left. There is slight exophthalmos is on the right compared to left. There is no history of thyroid disease. Prior similar symptoms: No Recent Illness/Hospitalization: Yes [facility] Medical History Acute anemia Allergic rhinitis Anxiety Atherosclerosis of coronary artery without angina pectoris Cancer Cardiology follow-up encounter Chewing tobacco nicotine dependence in remission Chronic cough Cognitive developmental delay Coronary artery disease Esophageal cancer Essential hypertension Gallbladder sludge Gastric reflux GERD (gastroesophageal reflux disease) GERD (gastroesophageal reflux disease) Hyperlipemia Left anterior hemiblock Myocardial infarct Nephrolithiasis Neurofibromatosis Nicotine dependence Non-STEMI (non-ST elevated myocardial infarction) (09/22/21) Stenosis of right carotid artery Weight loss Home Medications acetaminophen 325 mg tablet (Tylenol) 650 mg PO Q6H PRN PRN Pain Score 1-10 #1 TAB 10/15/21 [Rx Last Taken 06/23/22] fluticasone propionate 50 mcg/actuation nasal spray,suspension 2 spray intranasal DAILY allergies #1 g 10/15/21 [Rx Last Taken 06/22/22] nitroglycerin 0.4 mg sublingual tablet (Nitrostat) 0.4 mg sublingual Q5M PRN chest pain #1 BOTTLE 10/15/21 [Rx Last Taken Unknown] atorvastatin 40 mg tablet 40 mg PO QHS CHOLESTEROL 06/23/22 [History Last Taken 06/22/22] sertraline 100 mg tablet 100 mg PO DAILY MOOD 06/23/22 [History Last Taken 06/23] cetirizine 10 mg tablet (Zyrtec) 10 mg PO DAILY 07/02/22 [History Last Taken Unknown] docusate sodium 100 mg capsule (Colace) 100 mg PO PRN PRN STOOL SOFTENER 07/02/22 [History Last Taken Unknown] metoprolol tartrate 25 mg tablet 25 mg PO BID 07/02/22 [History Last Taken 07/04/22 04:00] Allergy/AdvReac Type Severity Reaction Status Date / Time No Known Allergies Allergy Verified 07/11/22 06:38 Family History Mother CAD (coronary artery disease) Had heart surgery at 49 YOA Hyperlipidemia Father Hyperlipidemia Brother Asthma Surgical History H/O coronary artery bypass surgery (09/26/21) History of appendectomy History of cardiac catheterization History of esophagogastroduodenoscopy (EGD) History of left heart catheterization (09/23/21) S/P percutaneous endoscopic gastrostomy (PEG) tube placement Social History household members: other details: lives in a [facility] housing: other details: care home Smoking Status: Former smoker quit date: 02/23/91 pack-years: 2 Tobacco: How many years used: 2 Smokeless tobacco user: chewing tobacco alcohol intake: never substance use type: does not use ROS ROS ED Constitutional Constitutional ED: Reports chills, fever(s), sweats and weight loss Eyes Eyes: Denies blurry vision or diplopia ENT ENT ED: Denies ear pain, rhinorrhea or sore throat Cardiovascular Cardiovascular: Denies chest pain, orthopnea, palpitations, paroxysmal nocturnal dyspnea or racing heartbeat Respiratory/Chest Respiratory/Chest: Reports cough, dyspnea on exertion and sputum; Denies dyspnea, orthopnea or paroxysmal nocturnal dyspnea Gastrointestinal Gastrointestinal: Reports nausea; Denies abdominal pain, diarrhea, melena or vomiting Genitourinary Genitourinary ED: Denies dysuria, hematuria or urinary frequency Musculoskeletal Musculoskeletal: Denies arthralgias, back pain, myalgias or neck pain Integumentary Denies rash Neurologic Neurologic: Reports weakness; Denies headache(s) or paresthesias Endocrine Endocrinology: Denies cold intolerance, heat intolerance or polydipsia Hematologic/Lymphatic Hematologic/Lymphatic: Reports systems reviewed and no addt'l complaints, except as documented Allergic/Immunologic Allergic/Immunologic ED: Denies mouth swelling or tongue swelling EXAM Physical Exam Const Vital Signs: 07/20/22 12:07 07/20/22 12:33 07/20/22 12:33 Temperature 100.1 F H Temperature Source Temporal Pulse Rate 149 H 118 H Respiratory Rate 20 H 18 Respiratory Pattern Blood Pressure 108/75 Blood Pressure Mean 86 Pulse Ox 97 98 Oxygen Delivery Method Room Air Room Air Room Air 07/20/22 12:33 07/20/22 13:11 Temperature Temperature Source Pulse Rate Respiratory Rate Respiratory Pattern Normal Blood Pressure 101/66 Blood Pressure Mean 77 Pulse Ox Oxygen Delivery Method Positive well developed and cachectic Constitutional Narrative: Patient does not appear well. He is slightly cachectic. General Appearance ED: well developed, cachectic, NAD and pallor; Negative for cyanotic or diaphoretic Nutritional Appearance: cachectic HEENT Reports dry mucous membranes HEENT Narrative: Posterior pharynx out erythema or exudate. Uvula midline. There is no deviatio n tongue with protrusion. Head is normocephalic and atraumatic. Ears are normal. Nares are patent. Mouth ED: Yes dry mucous membranes Mouth: dry mucous membranes Eyes PERRL and EOMs intact bilaterally General Eye ED: Yes pale conjunctiva; Negative for scleral icterus Neck no lymphadenopathy, supple and no JVD Neck Narrative: Trachea is midline. There inspiratory expiratory stridor. Chest Wall inspection of chest normal and palpation of chest normal Resp normal respiratory effort and clear to auscultation bilaterally Cardio regular rhythm, S1 normal heart sound, S2 normal heart sound and no murmurs Rate: tachycardic GI normal to inspection, nondistended, normoactive bowel sounds, non-tender, non- distended and no masses; Negative for hepatosplenomegaly GI Narrative: Gastrostomy tube noted without evidence infection Palpation: soft Back/Spine no CVA tenderness Extremity normal to inspection General Extremety ED: Negative for edema or tenderness General Extremity: Negative for edema Neuro oriented x3 and CN's II-XII intact bilaterally Sensorium / Orientation: alert Psych mental status grossly normal Skin no rashes or lesions noted, no wounds and No skin turgor normal General Skin Exam: pallor; Negative for jaundice MDM MDM MDM Narrative Medical decision making narrative: With history of partial esophageal obstruction trouble swallowing and now complaining of fever with productive cough need to evaluate for possible aspiration, pneumonia,. There is no evidence of cellulitis or abscess. There is no concern for meningitis. He has no urologic symptoms. Sepsis work-up was initiated. History & Record Review Discussion w/independent historian: EMS personnel and Family Additional record(s) reviewed:: Prior inpatient record, Prior outpatient record, Prior ED visit and Prior labs Lab Data Attestation: I reviewed the patient's lab results. Lab results narrative: Patient is neutropenic with an absolute neutrophil count of approximately 1650. Patient is anemic with an H&H of 9.1 and 28.7 coags normal. Comprehensive metabolic panel reveals a normal CO2 anion gap and renal function. Lactate is normal Labs: Laboratory Results - last 24 hr 07/20/22 07/20/22 07/20/22 13:00 13:00 13:00 WBC 2.5 L RBC 3.31 L Hgb 9.1 L Hct 28.7 L MCV 86.7 MCH 27.5 MCHC 31.7 L RDW Std Deviation 54.4 H RDW Coeff of Inez 18.1 H Plt Count 264 MPV 9.0 Immature Gran % (Auto) 0.400 Neut % (Auto) 65.5 Lymph % (Auto) 8.8 L [place] % (Auto) 24.5 H Eos % (Auto) 0.0 Baso % (Auto) 0.8 Absolute Neuts (auto) 1.6 L Absolute Lymphs (auto) 0.22 L Nucleated RBC % 0 [address] Review May foll Anisocytosis 1+ PT 14.0 INR 1.1 APTT 33.3 Sodium 134 L Potassium 3.7 Chloride 98 Carbon Dioxide 24.0 Anion Gap 12 BUN 23 H Creatinine 0.80 Estim Creat Clear Calc 73.71 Est GFR (MDRD) Af Amer 131 Est GFR (MDRD) Non-Af 109 BUN/Creatinine Ratio 28.7 H Glucose 92 Lactic Acid Calcium 9.9 Total Bilirubin 0.50 AST 33 ALT 20 Alkaline Phosphatase 224 H Total Protein 7.8 Albumin 2.7 L Globulin 5.1 H Albumin/Globulin Ratio 0.5 L 07/20/22 13:00 WBC RBC Hgb Hct MCV MCH MCHC RDW Std Deviation RDW Coeff of Inez Plt Count MPV Immature Gran % (Auto) Neut % (Auto) Lymph % (Auto) [place] % (Auto) Eos % (Auto) Baso % (Auto) Absolute Neuts (auto) Absolute Lymphs (auto) Nucleated RBC % Diff Path Review Anisocytosis PT INR APTT Sodium Potassium Chloride Carbon Dioxide Anion Gap BUN Creatinine Estim Creat Clear Calc Est GFR (MDRD) Af Amer Est GFR (MDRD) Non-Af BUN/Creatinine Ratio Glucose Lactic Acid 1.8 Calcium Total Bilirubin AST ALT Alkaline Phosphatase Total Protein Albumin Globulin Albumin/Globulin Ratio Radiography Chest X-Ray - ED: 1 View and Read by ED Physician (Single view chest x-ray reveals no acute process. Port is noted left subclavian. There is no evidence of effusion or infiltrate. Cardiac silhouette and size unremarkable. Osseous structures are unremarkable.) Diagnostic Testing: Clinical Impression(s) from Imaging Studies Chest X-Ray 07/20/22 12:33 IMPRESSION: No acute cardiopulmonary process identified. Electronically Signed: Kat Mayorga MD at 13:38 EDT Reading Location ID and State: [facility] / [place] Tel , Service support , Rhythm Strip Rhythm Strip: Sinus Tach Rate: 133 Ectopy: None EKG Initial EKG: Interpretation: Sinus Tachycardia (Rate is 125. FL interval is 178 ms. Cures duration 66 ms. QT duration 280 ms. [place] is normal. There is artifact noted. There is no acute ischemic changes.) Treatment and Re-Evaluation :: Since patient is febrile and neutropenic with an absolute neutrophil count of 1650 and has not received chemo in 3 weeks we will contact his oncologist Dr. Anand Eastman. I was informed that Dr. Still is covering. We will discuss antibiotic outpatient therapy versus inpatient therapy. Source may be pulmonary in light of him coughing up colored sputum. Case was discussed with Dr. Still who is on-call for Dr. Anand Eastman. He recommended IV antibiotics and admission. Patient was started on Zosyn and vancomycin. Hospitalist has been paged. Discharge Plan Triage Chief Complaint: Fever ED Provider: Sharan Soliz Dx/Rx/DC Orders Clinical Impression: Neutropenia, Neurofibromatosis, Nonalcoholic hepatosteatosis, H/O coronary artery bypass surgery, Fever, Stage IV malignant neoplasm of esophagus, Sinus tachycardia Prescriptions: No Action acetaminophen [Tylenol] 325 mg Tablet 650 mg PO Q6H PRN PRN (Reason: Pain Score 1-10) Qty: 1 0RF nitroglycerin [Nitrostat] 0.4 mg tablet, sublingual 0.4 mg sublingual Q5M PRN (Reason: chest pain) Qty: 1 0RF Rx Instructions: do not exceed 3 doses per episode fluticasone propionate 50 mcg/actuation Frannie,Suspension 2 spray INTRANASAL DAILY Qty: 1 0RF Rx Instructions: administer into each nostril sertraline 100 mg tablet 100 mg PO DAILY atorvastatin 40 mg tablet 40 mg PO QHS cetirizine [Zyrtec] 10 mg Tablet 10 mg PO DAILY docusate sodium [Colace] 100 mg Capsule 100 mg PO PRN PRN (Reason: STOOL SOFTENER) metoprolol tartrate 25 mg tablet 25 mg PO BID Primary Care Provider: Bertin Feliz Referrals: Bertin Feliz MD [Primary Care Provider] - Disposition Disposition: Acute Care Hospital [facility]
[2022-07-20] MEDS: 0.9% Normal Saline 1,000 ML 999 ML IV (13:05)
[2022-07-20 13:08] LABS: Absolute Lymphocyte Count 0.22 X10^3/uL (0.83-4.51); Absolute Neutrophil Count 1.6 X10^3/uL (2.0-7.7); Basophil# 0.02 X10^3/uL; Basophil% 0.8 % (0-1); Hematocrit 28.7 % (40-54); Hemoglobin 9.1 g/dL (13.0-16.5); Lymphocyte # 0.22 X10^3/ul (0.83-4.51); Lymphocyte % 8.8 % (19-41); Mean Corp Hgb Conc 31.7 g/dL (32-36); Mean Corpuscular Hgb 27.5 pg (27.0-32.0); Mean Corpuscular Volume 86.7 fL (80-94); Monocyte# 0.61 X10^3/uL; Monocyte% 24.5 % (0-10); NRBC Flagged by Analyzer 0 % (0-5); Neutrophil # 1.63 X10^3/uL (2.7-7.7); Neutrophil % 65.5 % (47-70); POSITIVE DIFFERENTIAL YES; Platelet Count 264 K/mm3 (150-450); RBC Distribution Width CV 18.1 % (11.6-14.6); RBC Distribution Width SD 54.4 fl (35.1-43.9); Red Blood Count 3.31 M/mm3 (4.6-6.2); White Blood Count 2.5 K/mm3 (4.4-11.0)
[2022-07-20 13:11] VITALS: BP 101/66
[2022-07-20 13:16] LABS: Differential Indicated SCAN CRITERIA MET
[2022-07-20 13:25] LABS: International Normalized Ratio 1.1
[2022-07-20 13:26] LABS: Partial Thromboplast Time 33.3 Seconds (24.1-36.2)
[2022-07-20 13:30] LABS: Lactic Acid 1.8 mmol/L (0.4-1.9)
[2022-07-20 13:32] LABS: ALB/GLOB Ratio 0.5 RATIO (0.9-2.4); AST(SGOT) 33 U/L (15-37); Alanine Aminotransfer ALT/SGPT 20 U/L (16-61); Albumin, Serum 2.7 g/dL (3.2-5.0); Alkaline Phosphatase 224 U/L (45-117); Anion Gap 12 (5-15); BUN 23 mg/dL (7-18); BUN/Creat Ratio 28.7 RATIO (10-20); Calcium,Total 9.9 mg/dL (8.5-10.1); Chloride 98 mmol/L (98-107); EST Glomerular Filtration Rate 109 mL/min (>60); Est Glom Filt Rate - Afr Amer 131 mL/min (>60); Estimated Creatinine Clearance 73.71 ml/min; Globulin 5.1 g/dL (2.2-4.2); Glucose 92 mg/dL (74-106); Potassium 3.7 mmol/L (3.5-5.1); Protein, Total 7.8 g/dL (6.4-8.2); Sodium Level 134 mmol/L (136-145)
[2022-07-20 13:41] LABS: Anisocytosis 1+
[2022-07-20 14:15] VITALS: BP 110/78; PULSE 99; RESP 16; O2SAT 98
[2022-07-20 15:00] VITALS: BP 101/76; PULSE 105; RESP 18; TEMP 37.7; O2SAT 98
[2022-07-20 15:48] LABS: Bacteria 0 SEEN /hpf (None Seen); Red Blood Cells-Urine 0 SEEN /hpf (0-5); Squamous Epithelial Cells - UA 0 SEEN /hpf (0-5)
[2022-07-20 15:54] LABS: Color, Urine Yellow (Yellow); Glucose, Dipstick Normal (Normal); Ketone-Dipstick Negative (Negative); Leukocyte Esterase-Dipstick 25 /ul (Negative); Nitrite-Dipstick Negative (Negative); Occult Blood-Urine Negative /ul (Negative); Protein-Dipstick 15 mg/dl (Negative); Urine Bilirubin Dipstick Negative (Negative); Urine Clarity Clear (Clear); Urine Urobilinogen Normal (Normal)
[2022-07-20 15:59] VITALS: BMI 18.4
[2022-07-20 16:06] LABS: Mucous, Urine RARE /hpf (<or=2+); White Blood Cells 0-5 SEEN /hpf (0-5)
[2022-07-20 16:07] LABS: Hyaline Cast 0-5 SEEN /lpf (0-5)
[2022-07-20] MEDS: 0.9% Normal Saline 1,000 ML 150 ML IV ×2 (16:31→23:09)
--- NOTE | 2022-07-20 16:44 | PCM.RX.CS ---
Consult Pharmacy has been consulted to manage selected antiobiotic: Vancomycin Suspected Infection: Pneumonia, Other - NEUTROPENIC FEVER Labs: Sodium 134 mmol/L (136-145) L 07/20/22 13:00 Potassium 3.7 mmol/L (3.5-5.1) 07/20/22 13:00 Chloride 98 mmol/L (98-107) 07/20/22 13:00 Carbon Dioxide 24.0 mmol/L (21.0-32.0) 07/20/22 13:00 Anion Gap 12 (5-15) 07/20/22 13:00 BUN 23 mg/dL (7-18) H 07/20/22 13:00 Creatinine 0.80 mg/dL (0.70-1.30) 07/20/22 13:00 Est GFR (MDRD) Af Amer 131 mL/min (>60) 07/20/22 13:00 Est GFR (MDRD) Non-Af 109 mL/min (>60) 07/20/22 13:00 BUN/Creatinine Ratio 28.7 RATIO (10-20) H 07/20/22 13:00 Glucose 92 mg/dL (74-106) 07/20/22 13:00 Pharmacy Plan for Drug Dosing: NEW START IV VANCOMYCIN Consulting Physician: LEONARD Indication: PNEUMONIA/NEUTROPENIC FEVER Goal Trough: 15-20 MG/DL SrCr: 0.8 MG/DL CrCl: 73.8 ML/MIN Comments: LOADING DOSE OF 1250MG GIVEN IN ER 07/20 @ 7114 Vancomycin Dose: WILL START 750MG Q12 (07/21 @ 0300) AND GET A TROUGH PRIOR TO 4TH TOTAL DOSE OF REGIMEN PER POLICY Pending Level: 07/22/22 @ 0230 Pharmacy Service will continue to monitor and adjust dosing as required.
--- NOTE | 2022-07-20 17:07 | PCM.HP.STD ---
HPI - General General Date of Admission: 07/20/22 Date of Service: 07/20/22 Chief Complaint: Fever HPI Narrative CATHERINE SCHWARTZ, is a 52 M who presents to the emergency room at [facility] for evaluation of fever today, patient was brought in by his father, he has MRDD and he was recently diagnosed earlier this year with extensive esophageal cancer. Patient is receiving chemotherapy-his last round of chemotherapy was approximately 3 weeks ago. Review of system is difficult to obtain from patient due to his MRDD, lab work done in the emergency room showed a white blood cell count of 2.5 and an absolute neutrophil count of 1600, hemoglobin was 9.1, platelet count was normal. Patient had a chest x-ray performed which showed no evidence of pneumonia, patient did not have any urinary symptoms and so a urinalysis was not performed, patient's chemistry profile was remarkable for a BUN of 23, alkaline phosphatase of 224, sodium was slightly low. Patient's temperature in the emergency room was 100.1, he was not hypoxic. Patient has an empty Ice-T container which he is spitting saliva into. He does not appear to be in any respiratory distress. The on-call physician for his oncologist was contacted and advised to admit the patient due to his fever and leukopenia. Will be admitted to [facility] for fever of unknown origin and aspiration, he will be made n.p.o. except for ice chips and he will receive IV Zosyn, I had a long discussion with the patient's POA who is his aunt, evidently the patient has metastatic cancer to his liver and has refused to undergo radiation therapy. After much discussion, she has agreed that the patient should be a DNR CC arrest without intubation. I also talked with the patient's father who was present at the time of the discussion, his father has deferred resuscitation decisions to the patient's POA. [facility] Medical History Acute anemia Allergic rhinitis Anxiety Atherosclerosis of coronary artery without angina pectoris Cancer Cardiology follow-up encounter Chewing tobacco nicotine dependence in remission Chronic cough Cognitive developmental delay Coronary artery disease Esophageal cancer Essential hypertension Gallbladder sludge Gastric reflux GERD (gastroesophageal reflux disease) GERD (gastroesophageal reflux disease) Hyperlipemia Left anterior hemiblock Myocardial infarct Nephrolithiasis Neurofibromatosis Nicotine dependence Non-STEMI (non-ST elevated myocardial infarction) (09/22/21) Stenosis of right carotid artery Weight loss Home Medications atorvastatin 40 mg tablet 40 mg PO QHS CHOLESTEROL 06/23/22 [History Last Taken 07/19/22] amlodipine 2.5 mg tablet 2.5 mg PO DAILY HTN 07/20/22 [History Last Taken 07/19/22] Allergy/AdvReac Type Severity Reaction Status Date / Time No Known Allergies Allergy Verified 07/11/22 06:38 Family History Mother CAD (coronary artery disease) Had heart surgery at 49 YOA Hyperlipidemia Father Hyperlipidemia Brother Asthma Surgical History H/O coronary artery bypass surgery (09/26/21) History of appendectomy History of cardiac catheterization History of esophagogastroduodenoscopy (EGD) History of left heart catheterization (09/23/21) S/P percutaneous endoscopic gastrostomy (PEG) tube placement Social History household members: other details: lives in a [facility] housing: other details: long-term Smoking Status: Former smoker quit date: 02/23/91 pack-years: 2 Tobacco: How many years used: 2 Smokeless tobacco user: chewing tobacco alcohol intake: never substance use type: does not use ROS ROS Narrative Review of systems was not able to be obtained due to developmental cognitive impairment. Patient is able to answer some simple questions appropriately Vital Signs Vital Signs Vital Signs: 07/20/22 12:07 07/20/22 12:33 07/20/22 12:33 Temperature 100.1 F H Temperature Source Temporal Pulse Rate 149 H 118 H Respiratory Rate 20 H 18 Respiratory Effort Respiratory Depth Respiratory Pattern Blood Pressure 108/75 Blood Pressure Mean 86 Pulse Ox 97 98 Oxygen Delivery Method Room Air Room Air Room Air 07/20/22 12:33 07/20/22 13:11 07/20/22 14:15 Temperature Temperature Source Pulse Rate 99 Respiratory Rate 16 Respiratory Effort Respiratory Depth Respiratory Pattern Normal Blood Pressure 101/66 110/78 Blood Pressure Mean 77 88 Pulse Ox 98 Oxygen Delivery Method Room Air 07/20/22 15:00 07/20/22 15:59 Temperature 99.9 F H Temperature Source Temporal Pulse Rate 105 H Respiratory Rate 18 Respiratory Effort Normal Non-Labored Respiratory Depth Normal Respiratory Pattern Normal Blood Pressure 101/76 Blood Pressure Mean 84 Pulse Ox 98 Oxygen Delivery Method Room Air Room Air Weight Weight: 47.174 kg Body Mass Index (BMI) 18.4 Physical Exam Const alert and no apparent distress Constitutional Narrative: Patient appears cachectic, he is of short stature, he has cognitive impairment-he can answer some questions appropriately General Appearance: cooperative and well kempt Orientation / Consciousness: awake and oriented to person HEENT normocephalic, head/scalp atraumatic, hearing grossly normal bilaterally and moist oral mucous membranes Eyes PERRL, EOMs intact bilaterally and conjunctivae normal Neck supple, no JVD, thyroid normal and no carotid bruits General: trachea midline Resp normal respiratory effort, no retractions, no use of accessory muscles and clear to auscultation bilaterally Auscultation: Negative for rales, rhonchi or wheezes Cardio regular rate, regular rhythm, S1 normal heart sound, S2 normal heart sound, no murmurs, no rub and no gallops Cardio Narrative: Patient has a Mediport located on the right upper chest wall GI normal to inspection, nondistended, normoactive bowel sounds, soft to palpation, non-tender and non-distended GI Narrative: There is a PEG tube in place Extremity no clubbing, cyanosis or edema Skin no rashes or lesions noted General Skin Exam: no breakdown Neuro CN's II-XII intact bilaterally, moves all extremities, no focal motor deficits and no sensory deficits noted Sensorium / Orientation: awake and alert Speech: speech normal Psych Psych Narrative: Patient has obvious cognitive impairment, he is able to answer some simple questions appropriately Results Lab / Micro Data Result Diagrams: 07/20/22 13:00 07/20/22 13:00 Labs: Laboratory Results - last 24 hr 07/20/22 13:00: WBC 2.5 L, RBC 3.31 L, Hgb 9.1 L, Hct 28.7 L, MCV 86.7, MCH 27.5, MCHC 31.7 L, RDW Std Deviation 54.4 H, RDW Coeff of Inez 18.1 H, Plt Count 264, MPV 9.0, Immature Gran % (Auto) 0.400, Neut % (Auto) 65.5, Lymph % (Auto) 8.8 L, [place] % (Auto) 24.5 H, Eos % (Auto) 0.0, Baso % (Auto) 0.8, Absolute Neuts (auto) 1.6 L, Absolute Lymphs (auto) 0.22 L, Nucleated RBC % 0, Diff Path Review May foll, Anisocytosis 1+ 07/20/22 13:00: PT 14.0, INR 1.1, APTT 33.3 07/20/22 13:00: Sodium 134 L, Potassium 3.7, Chloride 98, Carbon Dioxide 24.0, Anion Gap 12, BUN 23 H, Creatinine 0.80, Estim Creat Clear Calc 73.71, Est GFR (MDRD) Af Amer 131, Est GFR (MDRD) Non-Af 109, BUN/Creatinine Ratio 28.7 H, Glucose 92, Calcium 9.9, Total Bilirubin 0.50, AST 33, ALT 20, Alkaline Phosphatase 224 H, Total Protein 7.8, Albumin 2.7 L, Globulin 5.1 H, Albumin/Globulin Ratio 0.5 L 07/20/22 13:00: Lactic Acid 1.8 07/20/22 15:44: Urine Color Yellow, Urine Clarity Clear, Urine pH 7.0, Ur Specific [place] 1.010, Urine Protein 15 H, Urine Glucose (UA) Normal, Urine Ketones Negative, Urine Occult Blood Negative, Urine Nitrite Negative, Urine Bilirubin Negative, Urine Urobilinogen Normal, Ur Leukocyte Esterase 25 H, Urine RBC 0 SEEN, Urine WBC 0-5 SEEN, Ur Squamous Epith Cells 0 SEEN, Urine Bacteria 0 SEEN, Hyaline Casts 0-5 SEEN, Urine Mucus RARE Rhythm Strip Rhythm Strip: Sinus Tach Rate: 133 Ectopy: None Radiology Impression Chest X-Ray 07/20/22 12:33 IMPRESSION: No acute cardiopulmonary process identified. Electronically Signed: Kat Mayorga MD at 13:38 EDT , Assessment & Plan Assessment/Plan (1) Stage IV malignant neoplasm of esophagus: PLAN: Plan 1. Fever of unknown origin-probably secondary to chronic aspiration and/or aspiration pneumonia, rule out bacteremia-patient will be admitted to [facility], he was placed on IV Zosyn, blood cultures were obtained in the emergency room. Patient will be n.p.o. except for ice chips, I highly doubt the patient is able to clear his secretions, according to the patient's POA, patient has refused to agree to radiation treatment, I feel the patient's prognosis is dismal at this point, he has had the esophageal cancer for several months. I talked to the patient's POA about considering hospice, she will talk with me tomorrow when she dries up from [place] about the patient's medical status and my recommendation. Patient is a DNR CC arrest with no intubation #2 stage IV esophageal cancer-patient's father states that spread to the liver was detected, according to gastroenterology who I talked with by phone today (Dr. Duron) patient has poorly differentiated adenocarcinoma. Again I will talk with the patient's POA tomorrow about possible hospice referral. #3 esophageal obstruction secondary to poorly differentiated adeno CA of the esophagus-patient's father states that the patient cannot eat solid food and can only drink liquids, I do not feel safe to administer liquids other than ice chips at this time, I will start the patient on low-flow tube feedings-patient's father states that the patient has been throwing up when attempting tube feedings at times. #4 severe chronic protein and caloric malnutrition-patient will be seen by nutritional services #5 coronary artery disease-I will hold the patient's statin for now #6 essential hypertension-I will hold the patient's blood pressure medication for now #7 neurofibromatosis-patient has charted in his medical record neurofibromatosis as a diagnosis Total clinical time spent by myself addressing patient's medical issues, reviewing all of his data, and collaborating with patient's care team: 75 minutes Charges/Coding Visit Charges Inpatient E&M: 80655 Init Hosp L3
[2022-07-20 22:05] VITALS: BP 94/51; PULSE 83; RESP 16; TEMP 36.9; O2SAT 100
[2022-07-21 03:27] VITALS: BP 92/52; PULSE 72; RESP 16; TEMP 36.6; O2SAT 99
[2022-07-21 05:46] LABS: Absolute Lymphocyte Count 0.44 X10^3/uL (0.83-4.51); Absolute Neutrophil Count 1.1 X10^3/uL (2.0-7.7); Basophil# 0.04 X10^3/uL; Basophil% 1.9 % (0-1); Hematocrit 22.8 % (40-54); Hemoglobin 7.2 g/dL (13.0-16.5); Lymphocyte # 0.44 X10^3/ul (0.83-4.51); Lymphocyte % 21.2 % (19-41); Mean Corp Hgb Conc 31.6 g/dL (32-36); Mean Corpuscular Hgb 28.3 pg (27.0-32.0); Mean Corpuscular Volume 89.8 fL (80-94); Mean Platelet Vol. 8.8 fl (6.2-12.0); Monocyte# 0.51 X10^3/uL; Monocyte% 24.5 % (0-10); NRBC Flagged by Analyzer 0 % (0-5); Neutrophil # 1.09 X10^3/uL (2.7-7.7); Neutrophil % 52.4 % (47-70); POSITIVE DIFFERENTIAL YES; Platelet Count 160 K/mm3 (150-450); RBC Distribution Width CV 18.2 % (11.6-14.6); RBC Distribution Width SD 56.7 fl (35.1-43.9); Red Blood Count 2.54 M/mm3 (4.6-6.2); White Blood Count 2.1 K/mm3 (4.4-11.0)
[2022-07-21] MEDS: 0.9% Normal Saline 1,000 ML 150 ML IV ×2 (05:54→12:59)
[2022-07-21 05:58] LABS: Differential Indicated SCAN CRITERIA MET
--- NOTE | 2022-07-21 06:30 | RAD_ITS ---
INDICATION: fever EXAMINATION/TECHNIQUE: X-RAY - XR Chest 2 Views COMPARISON: July 20, 2022. FINDINGS: LINES/DEVICES: Accessed right chest port with tip projecting over the proximal right atrium.. Gastrostomy tube partially seen. LUNGS: No consolidation, edema or effusion. No pneumothorax. MEDIASTINUM AND CARDIOVASCULAR STRUCTURES: Cardiac silhouette not enlarged. Numerous left and superior mediastinal surgical clips. BONES AND SOFT TISSUES: Sternotomy wires are midline and intact.. RAD/Chest PA and Lateral IMPRESSION: No radiographic evidence of acute cardiopulmonary disease. Electronically Signed: Ihsan Tidwell MD at 6:43 EDT ,
[2022-07-21 06:39] LABS: Anisocytosis 1+; Hypochromasia 1+
[2022-07-21 06:41] LABS: Anion Gap 9 (5-15); BUN 16 mg/dL (7-18); BUN/Creat Ratio 45.5 RATIO (10-20); Calcium,Total 8.4 mg/dL (8.5-10.1); Chloride 109 mmol/L (98-107); Creatinine, Serum 0.35 mg/dL (0.70-1.30); EST Glomerular Filtration Rate 280 mL/min (>60); Est Glom Filt Rate - Afr Amer 339 mL/min (>60); Estimated Creatinine Clearance 168.48 ml/min; Glucose 76 mg/dL (74-106); Potassium 3.2 mmol/L (3.5-5.1); Sodium Level 137 mmol/L (136-145)
[2022-07-21 09:41] VITALS: BP 101/69; PULSE 82; RESP 17; TEMP 36.7; O2SAT 99
[2022-07-21] MEDS: Enoxaparin 40 MG/0.4 ML Syringe SC (09:58)
--- NOTE | 2022-07-21 10:28 | PCM.PN.HOSP ---
Reason for Visit Reason for Visit: Diagnoses Malignant neoplasm of esophagus, unspecified (07/20/22) Subjective Subjective Patient was seen and examined today, he is afebrile, his white blood cell count today was 2.1 with absolute white blood cell count 1.1. Patient's hemoglobin today was 7.2, I suspect the patient is having bleeding from his esophageal cancer. Objective Data Objective Data Vital Signs: Vital Signs Temp Pulse Resp BP Pulse Ox O2 Del Method 98.1 F 82 17 101/69 99 Room Air 07/21/22 09:41 07/21/22 09:41 07/21/22 09:41 07/21/22 09:41 07/21/22 09:41 07/21/22 09:41 Oxygen Delivery Method Room Air Weight: 47.174 kg Body Mass Index (BMI) 18.4 Intake & Output: Intake and Output for Last 24 Hours 07/19/22 07/20/22 07/21/22 23:59 23:59 23:59 Intake Total 2370 / 2370 1315 / 1315 Balance 2370 / 2370 1315 / 1315 Lab / Micro Data Result Diagrams: 07/21/22 05:40 07/21/22 05:40 Labs: Laboratory Results - last 24 hr 07/20/22 13:00: WBC 2.5 L, RBC 3.31 L, Hgb 9.1 L, Hct 28.7 L, MCV 86.7, MCH 27.5, MCHC 31.7 L, RDW Std Deviation 54.4 H, RDW Coeff of Inez 18.1 H, Plt Count 264, MPV 9.0, Immature Gran % (Auto) 0.400, Neut % (Auto) 65.5, Lymph % (Auto) 8.8 L, [place] % (Auto) 24.5 H, Eos % (Auto) 0.0, Baso % (Auto) 0.8, Absolute Neuts (auto) 1.6 L, Absolute Lymphs (auto) 0.22 L, Nucleated RBC % 0, Diff Path Review May foll, Anisocytosis 1+ 07/20/22 13:00: PT 14.0, INR 1.1, APTT 33.3 07/20/22 13:00: Sodium 134 L, Potassium 3.7, Chloride 98, Carbon Dioxide 24.0, Anion Gap 12, BUN 23 H, Creatinine 0.80, Estim Creat Clear Calc 73.71, Est GFR (MDRD) Af Amer 131, Est GFR (MDRD) Non-Af 109, BUN/Creatinine Ratio 28.7 H, Glucose 92, Calcium 9.9, Total Bilirubin 0.50, AST 33, ALT 20, Alkaline Phosphatase 224 H, Total Protein 7.8, Albumin 2.7 L, Globulin 5.1 H, Albumin/Globulin Ratio 0.5 L 07/20/22 13:00: Lactic Acid 1.8 07/20/22 15:44: Urine Color Yellow, Urine Clarity Clear, Urine pH 7.0, Ur Specific [place] 1.010, Urine Protein 15 H, Urine Glucose (UA) Normal, Urine Ketones Negative, Urine Occult Blood Negative, Urine Nitrite Negative, Urine Bilirubin Negative, Urine Urobilinogen Normal, Ur Leukocyte Esterase 25 H, Urine RBC 0 SEEN, Urine WBC 0-5 SEEN, Ur Squamous Epith Cells 0 SEEN, Urine Bacteria 0 SEEN, Hyaline Casts 0-5 SEEN, Urine Mucus RARE 07/21/22 05:40: WBC 2.1 L, RBC 2.54 L, Hgb 7.2 L, Hct 22.8 L, MCV 89.8, MCH 28.3, MCHC 31.6 L, RDW Std Deviation 56.7 H, RDW Coeff of Inez 18.2 H, Plt Count 160, MPV 8.8, Immature Gran % (Auto) 0.000, Neut % (Auto) 52.4, Lymph % (Auto) 21.2, [place] % (Auto) 24.5 H, Eos % (Auto) 0.0, Baso % (Auto) 1.9 H, Absolute Neuts (auto) 1.1 L, Absolute Lymphs (auto) 0.44 L, Nucleated RBC % 0, Diff Path Review May foll, Hypochromasia 1+, Anisocytosis 1+ 07/21/22 05:40: Sodium 137, Potassium 3.2 L, Chloride 109 H, Carbon Dioxide 19.0 L, Anion Gap 9, BUN 16, Creatinine 0.35 L, Estim Creat Clear Calc 168.48, Est GFR (MDRD) Af Amer 339, Est GFR (MDRD) Non-Af 280, BUN/Creatinine Ratio 45.5 H, Glucose 76, Calcium 8.4 L Radiography Diagnostic Testing: Radiology Impression Chest X-Ray 07/20/22 12:33 IMPRESSION: No acute cardiopulmonary process identified. Electronically Signed: Kat Mayorga MD at 13:38 EDT , Chest X-Ray 07/21/22 06:30 IMPRESSION: No radiographic evidence of acute cardiopulmonary disease. Electronically Signed: Ihsan Tidwell MD at 6:43 EDT , Rhythm Strip Rhythm Strip: Sinus Tach Rate: 133 Ectopy: None Physical Exam Narrative alert and no apparent distress Constitutional Narrative: Patient appears cachectic, he is of short stature, he has cognitive impairment-he can answer some questions appropriately General Appearance: cooperative and well kempt Orientation / Consciousness: awake and oriented to person HEENT normocephalic, head/scalp atraumatic, hearing grossly normal bilaterally and moist oral mucous membranes Eyes PERRL, EOMs intact bilaterally and conjunctivae normal Neck supple, no JVD, thyroid normal and no carotid bruits General: trachea midline Resp normal respiratory effort, no retractions, no use of accessory muscles and clear to auscultation bilaterally Auscultation: Negative for rales, rhonchi or wheezes Cardio regular rate, regular rhythm, S1 normal heart sound, S2 normal heart sound, no murmurs, no rub and no gallops Cardio Narrative: Patient has a Mediport located on the right upper chest wall GI normal to inspection, nondistended, normoactive bowel sounds, soft to palpation, non-tender and non-distended GI Narrative: There is a PEG tube in place Extremity no clubbing, cyanosis or edema Skin no rashes or lesions noted General Skin Exam: no breakdown Neuro CN's II-XII intact bilaterally, moves all extremities, no focal motor deficits and no sensory deficits noted Sensorium / Orientation: awake and alert Speech: speech normal Psych Psych Narrative: Patient has obvious cognitive impairment, he is able to answer some simple questions appropriately Assessment & Plan Assessment/Plan (1) Fever: (2) Stage IV malignant neoplasm of esophagus: PLAN: Plan 1. Fever of unknown origin-probably secondary to chronic aspiration and/or aspiration pneumonia, patient's chest x-ray today does not show a definite infiltrate. Continue present antibiotic coverage, patient is now neutropenic today #2 stage IV esophageal cancer-patient's father states that spread to the liver was detected-patient follows up with an outpatient oncologist #3 esophageal obstruction secondary to poorly differentiated adeno CA of the esophagus-patient's father states that the patient cannot eat solid food and can only drink liquids, tube feeds will be started today by nutritional services #4 severe chronic protein and caloric malnutrition-patient will be seen by nutritional services and tube feeds will start today #5 coronary artery disease-I will hold the patient's statin for now #6 essential hypertension-I will hold the patient's blood pressure medication for now #7 neurofibromatosis-patient has charted in his medical record neurofibromatosis as a diagnosis #8 anemia-etiology unclear, could be due to blood loss from esophageal cancer, I will repeat his CBC tomorrow, today I will get a repeat H&H at 3 PM. #9 neutropenia-patient's CBC will be repeated tomorrow Total clinical time spent by myself addressing patient's medical issues, reviewing all of his data, and collaborating with patient's care team: 35 minutes Charges/Coding Visit Charges Inpatient E&M: 71062 Subs Hosp L2
[2022-07-21] MEDS: Pivot 1.5 Cal 1,000 ML 20 ML GT (12:59)
[2022-07-21 14:23] VITALS: BP 106/72; PULSE 66; RESP 18; TEMP 37.2; O2SAT 96
[2022-07-21] MEDS: 0.9% Saline Lock 10 ML Syringe IV (15:10)
[2022-07-21 15:20] LABS: Hematocrit 30.8 % (40-54); Hemoglobin 9.4 g/dL (13.0-16.5)
--- NOTE | 2022-07-21 15:58 | CT_ITS ---
STUDY: CT CHEST, ABDOMEN T PELVIS WITH CONTRAST REASON FOR EXAM: Male, 52 years old. esophageal cancer RADIATION DOSAGE (If Supplied By Facility): CTDIvol = ( 7.12 ) mGy, DLP = ( 583.47 ) mGycm TECHNIQUE: Transaxial imaging was performed following intravenous administration of IV 100mL Isovue-300. Individualized dose optimization techniques were used for this CT. COMPARISON: June 23, 2022 FINDINGS: CHEST There are multiple nodules in the upper lobes largest on the right measuring approximately 9 x 9 mm possibly representing metastatic disease or noncalcified granulomata.. There is no demonstrated pleural abnormality. Normal heart and pericardium. Normal mediastinum. Normal hilar regions. Normal unenhanced pulmonary arteries. Normal aorta arch and descending thoracic aorta. Postop change status post median sternotomy and CABG. There is obstruction of the esophagus at the gastroesophageal junction extensive soft tissue density filling the dilated esophagus to the level of the aortic knob.. ABDOMEN There is a large heterogeneous mass in the lesser sac measuring approximately 5.6 x 3 cm likely metastatic adenopathy . Liver demonstrates fatty infiltration. There are multiple large solid nodules occupying much of the left lobe likely metastatic. Contracted thick-walled gallbladder without calcified stones likely physiologic. . Normal spleen. Normal pancreas. Normal bilateral adrenal glands. No evidence for renal obstruction. There is a small cyst in the left kidney which will not require additional imaging.. PEG tube noted within the stomach. Normal small intestine. Normal colon. The appendix is visualized and appears normal. Normal abdominal aorta. Normal inferior vena cava. Normal retroperitoneum. Normal abdominal wall. Probable interosseous hemangiomata. No evidence for acute fracture. No evidence for lytic or blastic metastasis. PELVIS Completely distended thick walled bladder likely of no significance.. Normal visualized small intestine. Normal visualized colon. There is no pelvic fluid. There is no pelvic lymphadenopathy or mass lesion. Normal visualized pelvic arteries. Small fat-containing left inguinal hernia.. Normal osseous structures. The mass in the lesser sac has decreased in size since prior exam. CT/CT Chest, Abd, Pel w/Contrast IMPRESSION: Diffusely distended esophagus containing extensive intraluminal content consistent with obstruction at the gastroesophageal junction. Multiple subcentimeter nodules in the upper lobes possibly representing early metastatic lesions. Recommend clinical correlation and follow-up studies Mass in the lesser sac likely adenopathy which has decreased in size since previous study.. Probable hepatic metastasis occupying much of the left lobe. Electronically Signed: Qasim Casey MD at 20:45 EDT ,
--- NOTE | 2022-07-21 16:36 | NURSING ---
This RN made pt get up oob and walk in the sneed as he has been sitting in the bed all day. Pt also encouraged to sit in chair. Sitting in chair.
--- NOTE | 2022-07-21 18:06 | PCA ---
Copy of patient health care power of car refinisher added to chart
[2022-07-21 21:10] VITALS: BP 115/76; PULSE 91; RESP 16; TEMP 36.9; O2SAT 99
[2022-07-22 02:06] LABS: Absolute Lymphocyte Count 0.42 X10^3/uL (0.83-4.51); Absolute Neutrophil Count 0.6 X10^3/uL (2.0-7.7); Basophil# 0.05 X10^3/uL; Basophil% 3.3 % (0-1); Hemoglobin 7.6 g/dL (13.0-16.5); Lymphocyte # 0.42 X10^3/ul (0.83-4.51); Lymphocyte % 27.8 % (19-41); Mean Corp Hgb Conc 30.4 g/dL (32-36); Mean Corpuscular Hgb 27.6 pg (27.0-32.0); Mean Corpuscular Volume 90.9 fL (80-94); Mean Platelet Vol. 8.9 fl (6.2-12.0); Monocyte% 26.5 % (0-10); NRBC Flagged by Analyzer 0 % (0-5); Neutrophil # 0.63 X10^3/uL (2.7-7.7); Neutrophil % 41.7 % (47-70); POSITIVE DIFFERENTIAL YES; POSITIVE MORPHOLOGY YES; Platelet Count 161 K/mm3 (150-450); RBC Distribution Width CV 18.2 % (11.6-14.6); RBC Distribution Width SD 57.2 fl (35.1-43.9); Red Blood Count 2.75 M/mm3 (4.6-6.2)
[2022-07-22 02:27] LABS: Differential Indicated SCAN CRITERIA MET; White Blood Count 1.5 K/mm3 (4.4-11.0)
[2022-07-22 02:38] LABS: ALB/GLOB Ratio 0.5 RATIO (0.9-2.4); AST(SGOT) 57 U/L (15-37); Alanine Aminotransfer ALT/SGPT 18 U/L (16-61); Albumin, Serum 2.1 g/dL (3.2-5.0); Alkaline Phosphatase 174 U/L (45-117); Anion Gap 15 (5-15); BUN 9 mg/dL (7-18); BUN/Creat Ratio 19.7 RATIO (10-20); Calcium,Total 8.5 mg/dL (8.5-10.1); Chloride 102 mmol/L (98-107); Creatinine, Serum 0.46 mg/dL (0.70-1.30); EST Glomerular Filtration Rate 207 mL/min (>60); Est Glom Filt Rate - Afr Amer 250 mL/min (>60); Estimated Creatinine Clearance 128.19 ml/min; Globulin 4.4 g/dL (2.2-4.2); Glucose 70 mg/dL (74-106); Potassium 3.1 mmol/L (3.5-5.1); Protein, Total 6.5 g/dL (6.4-8.2); Sodium Level 134 mmol/L (136-145); Vancomycin, Trough Level 10.6 ug/mL (5.0-15.0)
[2022-07-22 02:39] LABS: Differential Comment SCANNED
--- NOTE | 2022-07-22 03:00 | PCM.RX.CS ---
Consult Pharmacy has been consulted to manage selected antiobiotic: Vancomycin Type of Consult: Follow-up Suspected Infection: Pneumonia Prior Doses of Antibiotics Received/Current Regimen: Medications Vancomycin HCl 750 mg/ Sodium (Chloride) 265 mls @ 250 mls/hr IV Q8H MARVA Vancomycin HCl 750 mg/ Sodium (Chloride) 265 mls @ 250 mls/hr IV Q12H MARVA Stop: 07/22/22 04:30 Last Admin: 07/22/22 02:51 Dose: 250 mls/hr Labs: Sodium 134 mmol/L (136-145) L 07/22/22 02:00 Potassium 3.1 mmol/L (3.5-5.1) L 07/22/22 02:00 Chloride 102 mmol/L (98-107) 07/22/22 02:00 Carbon Dioxide 17.0 mmol/L (21.0-32.0) L 07/22/22 02:00 Anion Gap 15 (5-15) 07/22/22 02:00 BUN 9 mg/dL (7-18) 07/22/22 02:00 Creatinine 0.46 mg/dL (0.70-1.30) L 07/22/22 02:00 Est GFR (MDRD) Af Amer 250 mL/min (>60) 07/22/22 02:00 Est GFR (MDRD) Non-Af 207 mL/min (>60) 07/22/22 02:00 BUN/Creatinine Ratio 19.7 RATIO (10-20) 07/22/22 02:00 Glucose 70 mg/dL (74-106) L 07/22/22 02:00 Vancomycin Trough 10.6 ug/mL (5.0-15.0) 07/22/22 02:00 Weight used for dosin.2 kg Estimated Creatinine Clearance: 128 Goal Trough: 15-20 mcg/mL Pharmacy Plan for Drug Dosing: Vancomycin trough level, drawn 10.4 hours post-dose, was low at 10.6. (target range 15-20). With his improving CrCl (now 128ml/min) it necessitates an increase in frequency to q8h for an estimated trough of 17.0. A new dose of 750mg q8h will be initiated, and another trough will be drawn in four doses. Pharmacy Service will continue to monitor and adjust dosing as required. Follow-Up Labs: Trough Vancomycin Labs to be done on [date and time ordered]: 07/23/22 @[id number]
[2022-07-22 03:01] VITALS: BP 119/74; PULSE 92; RESP 16; TEMP 36.9; O2SAT 99
--- NOTE | 2022-07-22 07:36 | CON.PCM.ON_ITS ---
Assessment & Plan Assessment/Plan (1) Fever: Status: Acute Code(s): R50.9 - Fever, unspecified (2) Stage IV malignant neoplasm of esophagus: Status: Acute Code(s): C15.9 - Malignant neoplasm of esophagus, unspecified Plan: Impression: -Fever likely due to pneumonia and/or aspiration. -Recent esophageal bleeding. None now. -Taking ice chips. -Denies pain. -CTs reviewed. Unfortunately radiologist didn't compare to previous CT 06/23, but the lesser sac tumor measures smaller for me. -Appears to have a lot of debris in esophagus. -Developing neutropenia from cycle #2 chemotherapy. -Anemia may be from chemotherapy and bleeding. Plan: -Continue broad spectrum antibiotics. -Please ask radiology to make comparison. -Start Granix 300 mcg daily--ordered. -Monitor counts and transfuse RBCs for Hgb <7.0 g/dL of if has symptoms and Hgb <8.0 g/dL. -Check iron and ferritin-ordered. -Check retic count-ordered. -Consider consulting GI for opinion on EGD to assess/clear esophagus. -Will follow. HPI Consult Data Date of Service:: 07/22/22 PCP / Referring Provider: Dr. Bertin Feliz MD Attending: Dr. 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 He underwent PEG tube placement and then was started on treatment with carboplatin and etoposide. He completed second cycle of carboplatin and etoposide the week before last. At the time of his third day of cycle 2, he developed worsening regurgitation of blood. He was hospitalized at [facility]. No particular intervention was undertaken. He was discharged. Presented to the ED here this weekend with complaining of fever and bleeding. He was started on broad-spectrum antibiotics for suspicion of aspiration pneumonia. This morning he has been taking only ice chips and says he has no chest pain. He denies nausea. No further bleeding. Occasional chill. Bowels have been moving. He has been out of bed to the chair. Denies abdominal pain. Advanced Directives Power of Knitting Machine Tender: No Living Will: No FOR[facility]LY [facility], [facility] Medical History Acute anemia Allergic rhinitis Anxiety Atherosclerosis of coronary artery without angina pectoris Cancer Cardiology follow-up encounter Chewing tobacco nicotine dependence in remission Chronic cough Cognitive developmental delay Coronary artery disease Esophageal cancer Essential hypertension Gallbladder sludge Gastric reflux GERD (gastroesophageal reflux disease) GERD (gastroesophageal reflux disease) Hyperlipemia Left anterior hemiblock Myocardial infarct Nephrolithiasis Neurofibromatosis Nicotine dependence Non-STEMI (non-ST elevated myocardial infarction) (09/22/21) Stenosis of right carotid artery Weight loss Home Medications atorvastatin 40 mg tablet 40 mg PO QHS CHOLESTEROL 06/23/22 [History Last Taken 07/19/22] amlodipine 2.5 mg tablet 2.5 mg PO DAILY HTN 07/20/22 [History Last Taken 07/19/22] Allergy/AdvReac Type Severity Reaction Status Date / Time No Known Allergies Allergy Verified 07/11/22 06:38 Family History Mother CAD (coronary artery disease) Had heart surgery at 49 YOA Hyperlipidemia Father Hyperlipidemia Brother Asthma Surgical History H/O coronary artery bypass surgery (09/26/21) History of appendectomy History of cardiac catheterization History of esophagogastroduodenoscopy (EGD) History of left heart catheterization (09/23/21) S/P percutaneous endoscopic gastrostomy (PEG) tube placement Social History household members: other details: lives in a correction housing: other details: alf Smoking Status: Former smoker quit date: 02/23/91 pack-years: 2 Tobacco: How many years used: 2 Smokeless tobacco user: chewing tobacco alcohol intake: never substance use type: does not use Physical Exam Const alert General Appearance: cooperative HEENT moist oral mucous membranes HEENT Narrative: No evidence of thrush or mucositis. Eyes no scleral icterus Neck no lymphadenopathy Resp normal respiratory effort Effort and Inspection: able to speak in complete sentences Cardio regular rhythm GI GI Narrative: There is a nontender mass in the epigastrium. The remainder the abdomen is soft and nontender. PEG tube in place. Inspection: GI tube present Extremity no pedal edema Skin no jaundice Vital Signs Temperature 98.5 F 07/22/22 03:01 Temperature Source Oral 07/22/22 03:01 Pulse Rate 92 07/22/22 03:01 Pulse Strength Normal (2+) 07/21/22 22:00 Respiratory Rate 16 07/22/22 03:01 Respiratory Effort Non-Labored 07/21/22 21:00 Respiratory Depth Normal 07/21/22 21:00 Respiratory Pattern Normal 07/21/22 21:00 Blood Pressure 119/74 07/22/22 03:01 Blood Pressure Mean 89 07/22/22 03:01 Blood Pressure Source Monitor 07/21/22 21:10 Blood Pressure Position Sitting 07/21/22 21:10 Blood Pressure Location Left Arm 07/21/22 21:10 Pulse Ox 99 07/22/22 03:01 Oxygen Delivery Method Room Air 07/22/22 03:01 Laboratory Results - last 24 hr 07/21/22 15:05: Hgb 9.4 L, Hct 30.8 L 07/22/22 02:00: Vancomycin Trough 10.6 07/22/22 02:00: WBC 1.5 L*, RBC 2.75 L, Hgb 7.6 L, Hct 25.0 L, MCV 90.9, MCH 27.6, MCHC 30.4 L, RDW Std Deviation 57.2 H, RDW Coeff of Inez 18.2 H, Plt Count 161, MPV 8.9, Immature Gran % (Auto) 0.700, Neut % (Auto) 41.7 L, Lymph % (Auto) 27.8, [place] % (Auto) 26.5 H, Eos % (Auto) 0.0, Baso % (Auto) 3.3 H, Absolute Neuts (auto) 0.6 L, Absolute Lymphs (auto) 0.42 L, Nucleated RBC % 0, Differential Comment SCANNED, Diff Path Review June07/22/22 02:00: Sodium 134 L, Potassium 3.1 L, Chloride 102, Carbon Dioxide 17.0 L, Anion Gap 15, BUN 9, Creatinine 0.46 L, Estim Creat Clear Calc 128.19, Est GFR (MDRD) Af Amer 250, Est GFR (MDRD) Non-Af 207, BUN/Creatinine Ratio 19.7, Glucose 70 L, Calcium 8.5, Total Bilirubin 0.50, AST 57 H, ALT 18, Alkaline Phosphatase 174 H, Total Protein 6.5, Albumin 2.1 L, Globulin 4.4 H, Albumin/Globulin Ratio 0.5 L Diagnostic Data Chest X-Ray 07/21/22 06:30 IMPRESSION: No radiographic evidence of acute cardiopulmonary disease. Electronically Signed: Ihsan Tidwell MD at 6:43 EDT , Chest/Abdomen/Pelvis CT 07/21/22 15:58 IMPRESSION: Diffusely distended esophagus containing extensive intraluminal content consistent with obstruction at the gastroesophageal junction. Multiple subcentimeter nodules in the upper lobes possibly representing early metastatic lesions. Recommend clinical correlation and follow-up studies Mass in the lesser sac likely adenopathy which has decreased in size since previous study.. Probable hepatic metastasis occupying much of the left lobe. Electronically Signed: Qasim Casey MD at 20:45 EDT ,
--- NOTE | 2022-07-22 07:54 | PCM.PN.HOSP ---
Reason for Visit Reason for Visit: Diagnoses Malignant neoplasm of esophagus, unspecified (07/20/22) Fever, unspecified (07/20/22) Objective Data Objective Data Vital Signs: Vital Signs Temp Pulse Resp BP Pulse Ox O2 Del Method 98.5 F 92 16 119/74 99 Room Air 07/22/22 03:01 07/22/22 03:01 07/22/22 03:01 07/22/22 03:01 07/22/22 03:01 07/22/22 03:01 Oxygen Delivery Method Room Air Weight: 47.174 kg Body Mass Index (BMI) 18.4 Intake & Output: Intake and Output for Last 24 Hours 07/20/22 07/21/22 07/22/22 23:59 23:59 23:59 Intake Total 2370 / 2370 3390.25 / 3390.25 960.33 / 960.33 Output Total 975 / 975 Balance 2370 / 2370 3390.25 / 2715.25 -14.67 / -14.67 Medical Nutrition Assessment Dietitian: Malnutrition Criteria Met Start: 07/21/22 10:44 Freq: Status: Active Protocol: Document 07/22/22 07:51 AG (Rec: 07/22/22 07:51 AG [id number]) Nutrition Malnutrition Evidence of Malnutrition Exists Yes Malnutrition (severe): Chronic Evidenced By Weight Loss (Severe),Physical Changes (Severe) Clinical Problem Chronic Disease or Condition Related Malnutrition Etiology severe, chronic malnutrition related to inadequate energy intake w/ increased energy needs d/t esophageal cancer Signs/Symptoms as evidenced by unintentional 51#/33% weight loss x 6 months ; Obvious severe muscle wasting/fat loss evident per physical exam in orbital, clavicle, acromion, and temporal areas; BMI 18.4 Status Active Problem Recommendation Dietitian Recommendations/Changes 1) via PEG- Pivot 1.5 at goal rate of 50mL/hour w/ 150mL H2O flush every 4 hours to provide 1800 calories, 112 g protein, and 1800mL total fluid/day. Started at 20mL/ hour and increased by 15mL/ hour every 8-12 hours as tolerated until goal rate is achieved. 2) NPO per MANAGER PET; regular diet as medically indicated. Current enteral nutrition order meets 100% of estimated energy needs. 3) Daily wts. Lab / Micro Data Result Diagrams: 07/22/22 02:00 07/22/22 02:00 Labs: Laboratory Results - last 24 hr 07/21/22 15:05: Hgb 9.4 L, Hct 30.8 L 07/22/22 02:00: Vancomycin Trough 10.6 07/22/22 02:00: WBC 1.5 L*, RBC 2.75 L, Hgb 7.6 L, Hct 25.0 L, MCV 90.9, MCH 27.6, MCHC 30.4 L, RDW Std Deviation 57.2 H, RDW Coeff of Inez 18.2 H, Plt Count 161, MPV 8.9, Immature Gran % (Auto) 0.700, Neut % (Auto) 41.7 L, Lymph % (Auto) 27.8, [place] % (Auto) 26.5 H, Eos % (Auto) 0.0, Baso % (Auto) 3.3 H, Absolute Neuts (auto) 0.6 L, Absolute Lymphs (auto) 0.42 L, Nucleated RBC % 0, Differential Comment SCANNED, Diff Path Review June07/22/22 02:00: Sodium 134 L, Potassium 3.1 L, Chloride 102, Carbon Dioxide 17.0 L, Anion Gap 15, BUN 9, Creatinine 0.46 L, Estim Creat Clear Calc 128.19, Est GFR (MDRD) Af Amer 250, Est GFR (MDRD) Non-Af 207, BUN/Creatinine Ratio 19.7, Glucose 70 L, Calcium 8.5, Total Bilirubin 0.50, AST 57 H, ALT 18, Alkaline Phosphatase 174 H, Total Protein 6.5, Albumin 2.1 L, Globulin 4.4 H, Albumin/Globulin Ratio 0.5 L Radiography Diagnostic Testing: Radiology Impression Chest/Abdomen/Pelvis CT 07/21/22 15:58 IMPRESSION: Diffusely distended esophagus containing extensive intraluminal content consistent with obstruction at the gastroesophageal junction. Multiple subcentimeter nodules in the upper lobes possibly representing early metastatic lesions. Recommend clinical correlation and follow-up studies Mass in the lesser sac likely adenopathy which has decreased in size since previous study.. Probable hepatic metastasis occupying much of the left lobe. Electronically Signed: Qasim Casey MD at 20:45 EDT Reading Location ID and State: [facility] / [place] , Service support , Rhythm Strip Rhythm Strip: Sinus Tach Rate: 133 Ectopy: None Physical Exam Narrative GENERAL: In no apparent distress HEENT: Atraumatic; normocephalic EYES; Anicteric, Normal Conjunctiva NECK; supple, normal thyroid, RESPIRATORY: Diminished to auscultation CARDIOVASCULAR: Regular S1 S2, GI: soft, normoactive bowel sounds, : No Renal angle tenderness; EXTREMITIES: No edema, no clubbing, MUSCULOSKELETAL: no muscle wasting NEURO: Awake; no lateralizing signs. SKIN: No Rash PSYCH; Flat affect Assessment & Plan Assessment/Plan (1) Fever: (2) Stage IV malignant neoplasm of esophagus: PLAN: Plan Patient is a 52-year-old gentleman with history of stage IV esophageal CA admitted with fever and neutropenia 1. Neutropenic fever ? Patient managed with broad-spectrum antibiotic therapy cultures sent 2. Suspected aspiration pneumonia ? Patient remains on broad-spectrum antibiotic therapy in addition to supplemental oxygen 3. Stage IV esophageal cancer esophageal obstruction ? Patient has a PEG tube 4. Severe chronic protein calorie malnutrition ? Patient has been evaluated by dietitian notes and recommendations reviewed 5. Essential hypertension ? Patient antihypertensives currently on hold 6. Coronary artery disease ? Per history 7. Neurofibromatosis ? Per history 8. Anemia - Secondary to chronic disorder monitoring H&H and transfuse if patient becomes symptomatic or hemoglobin falls below 7 9. DVT prophylaxis -bilateral SCDs only holding off with chemoprophylaxis given patient's severe anemia Time spent in the patient's overall evaluation,decision-making process, review of diagnostic data, adjustment of management, discussion with other providers, nursing nursing and ancillary staff involved in patient's care documentation, 35 Minutes Charges/Coding Visit Charges Inpatient E&M: 16282 Subs Hosp L2
[2022-07-22 08:17] LABS: Platelet Count 182 K/mm3 (150-450)
[2022-07-22 08:24] LABS: Ferritin 488 ng/mL (26-388); Iron 39 ug/dL (65-175); Iron Binding Capacity,Total 135 ug/dL (250-450); PERCENT IRON SATURATION 28.9 % (15.0-55.0)
[2022-07-22 08:45] VITALS: BP 122/80; PULSE 94; RESP 16; TEMP 37.2; O2SAT 99
[2022-07-22] MEDS: TBO-FILGRASTIM 300 MCG/0.5 ML ML SC (08:48)
[2022-07-22] MEDS: Enoxaparin 40 MG/0.4 ML Syringe SC (08:49)
[2022-07-22 09:00] VITALS: RESP 18
[2022-07-22] MEDS: 0.9% Saline Lock 10 ML Syringe IV (10:57)
[2022-07-22] MEDS: Pivot 1.5 Cal 1,000 ML 30 ML GT (11:00)
--- NOTE | 2022-07-22 11:00 | SP.MBSS_ITS ---
Modified Barium Swallow - Patient Information Study Date: 07/22/22 Study Time: 10:00 Direct Billable Minutes: 105 Total Minutes procedure & reportin Diagnosis: Fever (R50.9), Malignant neoplasm of the esophagus (R00.0) Referring Physician: Renan Sharp Reason for Referral: Objectively assess swallow function, assess risk for aspiration, and determine recommendations for least restrictive diet textures and compensatory strategies to improve safety of swallow. 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 Additional PMH includes chronic cough, cognitive developmental delay, GERD, NSTEMI (SEE EMR for full PMH). He underwent PEG tube placement and then was started on treatment with carboplatin and etoposide. He completed second cycle of carboplatin and etoposide the week before last. At the time of his third day of cycle 2, he developed worsening regurgitation of blood. He was hospitalized at [facility]. No particular intervention was undertaken. He was discharged. Presented to the ED at [facility] 07/20/2022 with fever and bleeding. He was started on antibiotics for suspicion of aspiration pneumonia. He was recommended NPO with ice chips. Of note, patient had only been able to consume liquids at home due to nausea and vomiting of foods. Speech therapy was consulted and patient was recommended for thin liquids only and MBSS to objectively assess swallow function and aspiration risk. Current Diet Ordered: Thin liquids and ice chips Dentition: Natural Teeth Mental Status: Impaired - cognitive developmental delay, patient able to follow directions without difficulty during evaluation - Penetration-Aspiration Scale Penetration-Aspiration Scale: OBJECTIVE ASSESSMENT OF SWALLOW FUNCTION (QUANTITATIVE ? PER TRIAL): PENETRATION / ASPIRATION SCALE (AMBROSIO): 1 = does not enter airway 2 = enters airway/above vocal folds/ejected 3 = enters airway/above vocal folds/not ejected 4 = enters airway/contacts vocal folds/ejected 5 = enters airway/contacts vocal folds/not ejected 6 = enters airway/below vocal folds/ejected 7 = enters airway/below vocal folds/not ejected despite effort 8 = enters airway/below vocal folds/no effort VIDEOFLOROSCOPIC SCALE SCORE (AMBROSIO): Grade I = aspiration of material that has penetrated into the laryngeal vestibule, intact cough reflex Grade II = aspiration < 10 % of the bolus, intact cough reflex Grade III = aspiration of < 10 % of the bolus, reduced cough reflex or aspiration of > 10 % of the bolus, intact cough reflex Grade IV = aspiration of > 10 % of the bolus, reduced cough reflex - Penetration-Aspiration Scale Score Thin Liquid via teaspoon Result: 1= does not enter airway Thin Liquid via teaspoon Trial 2 Result: 4= enters airway/contacts vocal folds/ejected - trace Thin Liquid via small single sip from cup Result: 1= does not enter airway Thin Liquid via sequential sips from cup with esophageal screen Result: 8= enters airway/below vocal folds/no effort - trace Pudding via teaspoon with esophageal screen Result: 1= does not enter airway Thin Liquid via single sip from straw with esophageal screen Result: 5= enters airways/contacts vocal folds/not ejected - trace, SILENT post prandial aspiration of this trial observed during the following trial Thin Liquid via small single sip from cup Trial 2 Result: 1= does not enter airway - Oral Phase Labial Seal: No Labial Escape Tongue Control During Bolus Hold: Posterior escape of greater than half of bolus - sequential cup Bolus Transport/Lingual Motion: Delayed initiation of tongue motion Oral Residue: Trace residue lining oral structures - Pharyngeal Phase Initiation of Pharyngeal Swallow: Bolus head in pyriforms Soft Palate Elevation: Trace column of contrast/air between soft palate and pharyngeal wall Laryngeal Elevation: Partial superior movement thyroid cart/partial apprx aryt- epig petiole Anterior Hyoid Excursion: Partial anterior movement Epiglottic Movement: Complete inversion Laryngeal Vestibule Closure at Height of Swallow: Incomplete; narrow column of air/contrast in laryngeal vestibule Pharyngeal Stripping Wave: Present - complete Pharyngoesophageal Segment Opening: Complete distension and complete duration; no obstruction of flow Tongue Base Retraction: Trace column of contrast between tongue base & post. p haryngeal wall Pharyngeal Residue: Trace residue within or on pharyngeal structures - Esophageal Phase Esophageal Clearance: Minimal to no esophageal clearance - pudding via tsp, little improvement with thin liquid wash - Diagnosis/Impression Diagnosis: Mild-mod oropharyngeal dysphagia (R13.12), Esophageal dysphagia (R13.14) Impression: The oral phase is primarily marked by... -Decreased bolus control with >1/2 of the bolus spilling posteriorly to the pyriforms prior to swallow onset observed with final sip of thin liquids via sequential cup sips The pharyngeal phase is primarily marked by... -Mildly decreased airway closure during the swallow due to partial anterior hyoid excursion and mildly decreased laryngeal elevation. -SILENT aspiration of thin by sequential cup sips. Post prandial SILENT aspiration of thin liquids by straw. Deep laryngeal penetration of thin via tsp to the vocal folds, which fully eject from the laryngeal vestibule after the swallow. The esophageal phase is primarily marked by... -Complete esophageal retention of pudding in mid-lower esophagus with little to no improvement when provided thin liquid wash. -Mild esophageal retention of thin liquids with retrograde flow of portion of thin liquid bolus through the lower esophageal sphincter. - Recommendations Diet: Thin Liquids - for pleasure - PEG tube present to meet the patient's nutrition and hydration needs. Comment: Thin liquids by cup only Patient is a SILENT aspirator by straw or sequential cup sips v? No straws v? Cued cough & re-swallow after every 4-5 sips v? Slow rate - sips one at a time v? Sitting upright 90 degrees while drinking and 30 minutes after v? Frequent oral care v? STOP if s/s of reflux, nausea, or regurgitation Direct Supervision Patient is okay for ice chips unsupervised after thorough oral care. Recommend Repeat Modified Barium Swallow: TBD Need for Skilled Speech Therapy Services: Yes Comment: Will recommend the patient for dysphagia therapy to address deficits in oropharyngeal swallow function. Will recommend the patient for oropharyngeal strengthening to improve lingual control, laryngeal elevation, and hyoid excursion. The patient would benefit from thorough education regarding diet recommendations and recommended compensatory strategies. Education Completed: 1. Described result of evaluation., 2. Pt understands evaluation & agrees with goals and treatment plan., 7. Pt requires further education on strategies & risks. - Status Active ST Patient: Active - Contact Information [facility] Speech Therapy:: Lida Sears M.A. [facility] SUPERVISOR Speech-Language Pathologist [facility] [address] [place] [address] [email or web address] [phone] 07/22/22 11:16
[2022-07-22 11:44] LABS: Pathologist Review Reviewed
[2022-07-22 11:44] LABS: Pathologist Review Reviewed
[2022-07-22 11:44] LABS: Pathologist Review Reviewed
--- NOTE | 2022-07-22 13:30 | CASEMGMT ---
YAMILE TEE updated that a hospice consult had been placed. YAMILE TEE attempted x3 to meet with patient for assessment, pt receiving pt care and nurse present in room. Hospice to eval at 2:30 per SW.
--- NOTE | 2022-07-22 13:51 | CASEMGMT ---
Addendum entered by Gabby Barrios 07/22/22 15:53: Social Work SW spoke with hospice nurse. Papers were not signed at this time. [facility] Nurse requesting SW update hospice when pt is discharged and hospice will then meet with pt and HCPOA and sign papers once pt arrives home. SW to continue to follow. DHAVAL Jacobson Original Note: Social Work SW spoke with Lurdes from [facility]. An appointment is scheduled today for hospice nurse to meet with pt's HCPOA/aunt Payton Zeng at 2:30. Nursing updated. DHAVAL Jacobson
[2022-07-22 15:00] VITALS: RESP 18
[2022-07-22 16:28] VITALS: BP 105/64; PULSE 108; RESP 18; TEMP 37.3; O2SAT 99
[2022-07-22 22:26] VITALS: BP 109/66; PULSE 99; RESP 16; TEMP 37.6; O2SAT 100
[2022-07-23 01:45] VITALS: BMI 18.3
[2022-07-23] MEDS: Pivot 1.5 Cal 1,000 ML 45 ML GT (04:24)
[2022-07-23 04:26] VITALS: BP 106/67; PULSE 96; RESP 16; TEMP 37.3; O2SAT 99
[2022-07-23 06:28] LABS: Absolute Lymphocyte Count 0.46 X10^3/uL (0.83-4.51); Absolute Neutrophil Count 2.3 X10^3/uL (2.0-7.7); Basophil# 0.02 X10^3/uL; Basophil% 0.5 % (0-1); Hemoglobin 7.6 g/dL (13.0-16.5); Lymphocyte # 0.46 X10^3/ul (0.83-4.51); Lymphocyte % 12.2 % (19-41); Mean Corp Hgb Conc 31.7 g/dL (32-36); Mean Corpuscular Hgb 27.6 pg (27.0-32.0); Mean Corpuscular Volume 87.3 fL (80-94); Mean Platelet Vol. 9.6 fl (6.2-12.0); Monocyte# 0.88 X10^3/uL; Monocyte% 23.4 % (0-10); NRBC Flagged by Analyzer 0 % (0-5); Neutrophil # 2.34 X10^3/uL (2.7-7.7); Neutrophil % 62.3 % (47-70); POSITIVE DIFFERENTIAL YES; POSITIVE MORPHOLOGY YES; Platelet Count 138 K/mm3 (150-450); RBC Distribution Width CV 18.8 % (11.6-14.6); RBC Distribution Width SD 54.7 fl (35.1-43.9); Red Blood Count 2.75 M/mm3 (4.6-6.2); White Blood Count 3.8 K/mm3 (4.4-11.0)
[2022-07-23 06:33] LABS: Differential Indicated SCAN CRITERIA MET
[2022-07-23 06:54] LABS: Anisocytosis 2+; Platelet Estimate SLT DEC (ADEQ)
[2022-07-23 07:02] LABS: Anion Gap 9 (5-15); BUN 8 mg/dL (7-18); BUN/Creat Ratio 13.9 RATIO (10-20); Calcium,Total 8.3 mg/dL (8.5-10.1); Chloride 101 mmol/L (98-107); Creatinine, Serum 0.58 mg/dL (0.70-1.30); EST Glomerular Filtration Rate 159 mL/min (>60); Est Glom Filt Rate - Afr Amer 192 mL/min (>60); Estimated Creatinine Clearance 101.29 ml/min; Glucose 134 mg/dL (74-106); Magnesium 1.7 mg/dL (1.6-2.6); Phosphorus 2.1 mg/dL (2.5-4.9); Potassium 2.8 mmol/L (3.5-5.1); Sodium Level 133 mmol/L (136-145)
[2022-07-23 07:23] VITALS: BP 107/69; PULSE 90; RESP 18; TEMP 36.7; O2SAT 99
--- NOTE | 2022-07-23 07:38 | PCM.PN.HOSP ---
Reason for Visit Reason for Visit: Diagnoses Malignant neoplasm of esophagus, unspecified (07/20/22) Fever, unspecified (07/20/22) Subjective Subjective Patient potassium down to 2.6 replacement initiated WBC count up to 3.8 and hemoglobin remains relatively stable at 7.6 Objective Data Objective Data Vital Signs: Vital Signs Temp Pulse Resp BP Pulse Ox O2 Del Method 99.2 F H 96 16 106/67 99 Room Air 07/23/22 04:26 07/23/22 04:26 07/23/22 04:26 07/23/22 04:26 07/23/22 04:26 07/23/22 04:26 Oxygen Delivery Method Room Air Weight: 47 kg Body Mass Index (BMI) 18.3 Intake & Output: Intake and Output for Last 24 Hours 07/21/22 07/22/22 07/23/22 23:59 23:59 23:59 Intake Total 3390.25 / 3390.25 3177.83 / 3899.83 2019 / 2019 Output Total 2275 / 3075 1600 / 1600 Balance 3390.25 / 2715.25 902.83 / 824.83 420 / 420 Medical Nutrition Assessment Dietitian: Malnutrition Criteria Met Start: 07/21/22 10:44 Freq: Status: Active Protocol: Document 07/22/22 07:51 AG (Rec: 07/22/22 07:51 AG [id number]) Nutrition Malnutrition Evidence of Malnutrition Exists Yes Malnutrition (severe): Chronic Evidenced By Weight Loss (Severe),Physical Changes (Severe) Clinical Problem Chronic Disease or Condition Related Malnutrition Etiology severe, chronic malnutrition related to inadequate energy intake w/ increased energy needs d/t esophageal cancer Signs/Symptoms as evidenced by unintentional 51#/33% weight loss x 6 months ; Obvious severe muscle wasting/fat loss evident per physical exam in orbital, clavicle, acromion, and temporal areas; BMI 18.4 Status Active Problem Recommendation Dietitian Recommendations/Changes 1) via PEG- Pivot 1.5 at goal rate of 50mL/hour w/ 150mL H2O flush every 4 hours to provide 1800 calories, 112 g protein, and 1800mL total fluid/day. Started at 20mL/ hour and increased by 15mL/ hour every 8-12 hours as tolerated until goal rate is achieved. 2) NPO per SENIOR SOFTWARE SYSTEMS ENGINEER; regular diet as medically indicated. Current enteral nutrition order meets 100% of estimated energy needs. 3) Daily wts. Lab / Micro Data Result Diagrams: 07/23/22 06:21 07/23/22 06:21 Labs: Laboratory Results - last 24 hr 07/20/22 13:00: Diff Path Review Reviewed 07/21/22 05:40: Diff Path Review Reviewed 07/22/22 02:00: Diff Path Review Reviewed 07/22/22 02:00: Retic Count 2.90 H, Immature Retic Fraction 24.90 H, Retic Hgb Equivalent 32.0 07/22/22 02:00: Iron 39 L, TIBC 135 L, Iron Saturation 28.9, Ferritin 488 H 07/23/22 06:21: WBC 3.8 L, RBC 2.75 L, Hgb 7.6 L, Hct 24.0 L, MCV 87.3, MCH 27.6, MCHC 31.7 L, RDW Std Deviation 54.7 H, RDW Coeff of Inez 18.8 H, Plt Count 138 L, MPV 9.6, Immature Gran % (Auto) 1.600 H, Neut % (Auto) 62.3, Lymph % (Auto) 12.2 L, [place] % (Auto) 23.4 H, Eos % (Auto) 0.0, Baso % (Auto) 0.5, Absolute Neuts (auto) 2.3, Absolute Lymphs (auto) 0.46 L, Nucleated RBC % 0, Diff Path Review May , Platelet Estimate SLT DEC, Anisocytosis 2+ 07/23/22 06:21: Sodium 133 L, Potassium 2.8 L, Chloride 101, Carbon Dioxide 23.0, Anion Gap 9, BUN 8, Creatinine 0.58 L, Estim Creat Clear Calc 101.29, Est GFR (MDRD) Af Amer 192, Est GFR (MDRD) Non-Af 159, BUN/Creatinine Ratio 13.9, Glucose 134 H, Calcium 8.3 L, Phosphorus 2.1 L, Magnesium 1.7 Micro: Microbiology 07/20/22 13:50 Blood Culture (Wb) - Arm Left Blood Culture - Preliminary No growth in 48 hours. 07/20/22 13:00 Blood Culture (Wb) - Port Blood Culture - Preliminary No growth in 48 hours. 07/20/22 15:44 Urine, Clean Catch Urine Culture - Final Culture exhibits no growth. Rhythm Strip Rhythm Strip: Sinus Tach Rate: 133 Ectopy: None Physical Exam Narrative GENERAL: In no apparent distress HEENT: Atraumatic; normocephalic EYES; Anicteric, Normal Conjunctiva NECK; supple, normal thyroid, RESPIRATORY: Diminished to auscultation CARDIOVASCULAR: Regular S1 S2, GI: soft, normoactive bowel sounds, : No Renal angle tenderness; EXTREMITIES: No edema, no clubbing, MUSCULOSKELETAL: no muscle wasting NEURO: Awake; no lateralizing signs. SKIN: No Rash PSYCH; Flat affect Assessment & Plan Assessment/Plan (1) Fever: (2) Stage IV malignant neoplasm of esophagus: PLAN: Plan Patient is a 52-year-old gentleman with history of stage IV esophageal CA admitted with fever and neutropenia 1. Neutropenic fever ? Patient managed with broad-spectrum antibiotic therapy cultures sent 2. Suspected aspiration pneumonia ? Patient remains on broad-spectrum antibiotic therapy in addition to supplemental oxygen 3. Stage IV esophageal cancer esophageal obstruction ? Patient has a PEG tube 4. Severe chronic protein calorie malnutrition ? Patient has been evaluated by dietitian notes and recommendations reviewed 5. Essential hypertension ? Patient antihypertensives currently on hold 6. Coronary artery disease ? Per history 7. Neurofibromatosis ? Per history 8. Anemia - Secondary to chronic disorder monitoring H&H and transfuse if patient becomes symptomatic or hemoglobin falls below 7 9. DVT prophylaxis -bilateral SCDs only holding off with chemoprophylaxis given patient's severe anemia 10. Hypokalemia -Corrected per protocol Time spent in the patient's overall evaluation,decision-making process, review of diagnostic data, adjustment of management, discussion with other providers, nursing nursing and ancillary staff involved in patient's care documentation, 35 Minutes Charges/Coding Visit Charges Inpatient E&M: 18728 Subs Hosp L2
--- NOTE | 2022-07-23 07:46 | PN.ONC_ITS ---
Subjective Subjective He has no complaints this morning. Was able to sip on some coffee yesterday which she really enjoyed. Denies chest pain. No further esophageal bleeding. Denies nausea. Denies abdominal pain. Up to 50 cc/h on tube feeds. Stools are runny. No bloody stools. Low-grade temp last night. Physical Exam Const alert General Appearance: cooperative Eyes no scleral icterus Neck no lymphadenopathy Resp normal respiratory effort Effort and Inspection: able to speak in complete sentences Cardio regular rhythm GI soft to palpation Vital Signs Temperature 99.2 F H 07/23/22 04:26 Temperature Source Oral 07/23/22 04:26 Pulse Rate 96 07/23/22 04:26 Pulse Strength Normal (2+) 07/22/22 10:00 Respiratory Rate 16 07/23/22 04:26 Respiratory Effort Non-Labored 07/22/22 15:00 Respiratory Depth Normal 07/21/22 21:00 Respiratory Pattern Normal 07/21/22 21:00 Blood Pressure 106/67 07/23/22 04:26 Blood Pressure Mean 80 07/23/22 04:26 Blood Pressure Source Monitor 07/23/22 04:26 Blood Pressure Position Semi-Fowlers 07/23/22 04:26 Blood Pressure Location Left Arm 07/23/22 04:26 Pulse Ox 99 07/23/22 04:26 Oxygen Delivery Method Room Air 07/23/22 04:26 Laboratory Results - last 24 hr 07/20/22 13:00: Diff Path Review Reviewed 07/21/22 05:40: Diff Path Review Reviewed 07/22/22 02:00: Diff Path Review Reviewed 07/22/22 02:00: Retic Count 2.90 H, Immature Retic Fraction 24.90 H, Retic Hgb Equivalent 32.0 07/22/22 02:00: Iron 39 L, TIBC 135 L, Iron Saturation 28.9, Ferritin 488 H 07/23/22 06:21: WBC 3.8 L, RBC 2.75 L, Hgb 7.6 L, Hct 24.0 L, MCV 87.3, MCH 27.6, MCHC 31.7 L, RDW Std Deviation 54.7 H, RDW Coeff of Inez 18.8 H, Plt Count 138 L, MPV 9.6, Immature Gran % (Auto) 1.600 H, Neut % (Auto) 62.3, Lymph % (Auto) 12.2 L, [place] % (Auto) 23.4 H, Eos % (Auto) 0.0, Baso % (Auto) 0.5, Absolute Neuts (auto) 2.3, Absolute Lymphs (auto) 0.46 L, Nucleated RBC % 0, Diff Path Review May foll, Platelet Estimate SLT DEC, Anisocytosis 2+ 07/23/22 06:21: Sodium 133 L, Potassium 2.8 L, Chloride 101, Carbon Dioxide 23.0, Anion Gap 9, BUN 8, Creatinine 0.58 L, Estim Creat Clear Calc 101.29, Est GFR (MDRD) Af Amer 192, Est GFR (MDRD) Non-Af 159, BUN/Creatinine Ratio 13.9, Glucose 134 H, Calcium 8.3 L, Phosphorus 2.1 L, Magnesium 1.7 Microbiology 07/20/22 13:50 Blood Culture (Wb) - Arm Left Blood Culture - Preliminary No growth in 48 hours. 07/20/22 13:00 Blood Culture (Wb) - Port Blood Culture - Preliminary No growth in 48 hours. 07/20/22 15:44 Urine, Clean Catch Urine Culture - Final Culture exhibits no growth. Diagnostic Data Chest X-Ray 07/21/22 06:30 IMPRESSION: No radiographic evidence of acute cardiopulmonary disease. Electronically Signed: Ihsan Tidwell MD at 6:43 EDT , Chest/Abdomen/Pelvis CT 07/21/22 15:58 IMPRESSION: Diffusely distended esophagus containing extensive intraluminal content consistent with obstruction at the gastroesophageal junction. Multiple subcentimeter nodules in the upper lobes possibly representing early metastatic lesions. Recommend clinical correlation and follow-up studies Mass in the lesser sac likely adenopathy which has decreased in size since previous study.. Probable hepatic metastasis occupying much of the left lobe. Electronically Signed: Qasim Casey MD at 20:45 EDT , Assessment & Plan Assessment/Plan (1) Neutropenia: (2) Fever: (3) Stage IV malignant neoplasm of esophagus: (4) Esophageal bleed, non-variceal: PLAN: Impression: -Fever likely due to pneumonia and/or aspiration. Resolved. -Recent esophageal bleeding. None now. -Denies pain. -CTs again reviewed. Gastrohepatic LN smaller, but right adrenal metastasis larger. No thorough comparison as of yet. -Appears to have a lot of debris in esophagus. -Swallow study noted. -Tolerating TFs well. -Neutropenia resolved. -Anemia stable. Secondary to chronic disease. Iron studies noted. Plan: -Continue broad spectrum antibiotics. -Stop Granix after today's dose. -Monitor counts and transfuse RBCs for Hgb <7.0 g/dL of if has symptoms and Hgb <8.0 g/dL. -Again--consider consulting GI for opinion on EGD to assess/clear esophagus. -Will discuss changing chemotherapy regimen to topotecan once discharged. -Will sign off.
[2022-07-23] MEDS: Potassium Chloride 10mEq/100mL 10 MEQ/100 ML IV.SOLN. 100 MEQ IV BOLUS ×4 (08:27→11:45)
[2022-07-23] MEDS: Potassium Chloride Oral Tablet 20 MEQ 40 MEQ GT (08:35)
[2022-07-23] MEDS: Enoxaparin 40 MG/0.4 ML Syringe SC (09:37)
[2022-07-23] MEDS: TBO-FILGRASTIM 300 MCG/0.5 ML ML SC (09:39)
--- NOTE | 2022-07-23 10:26 | CASEMGMT ---
Social Work SW to room to meet with patient for transition planning/care coordination assessment. SW introduced self and role at [facility]. Pt voices understanding and consents to assessment at this time. Pt resting in chair and in no distress. Per H&P, pt presenting with cognitive developmental delay. Pt answering questions that he is able to and confirming information SW provides. (pt unable to state address but confirms when SW provides, pt able to state he has a cancer doctor but cannot remember name. When asked about [facility], pt smiles with recognition and confirms.) PCP: Dr Jewell Feliz Specialists: Dr. Eastman, oncology Insurance: Medicare, Medicaid Prescription Benefit: Yes Living Will/HPOA: Pt's Aunt Payton Zeng is HCPOA LNOK: Pt father Kelvin Villalba II, Aunt Payton Zeng Living Arrangements: Pt states he lives at home with his father and brother. Pt lives in a two story home with his bedroom on the second floor. Pt states he is independent with bathing and dressing. His father assists with medication management and tube feeding. Transportation: Pt father provides DME: none SW spoke with pt regarding cancer diagnosis. Pt is unable to state how long he has been diagnosed with cancer. Pt not engaging in conversation regarding feelings about diagnosis. Pt does state that he has 4 cats that are important to him and help him during this time. SW encouraged this coping strategy. Plan: Pt confirms that he met with hospice yesterday and states he is unsure if they will elect hospice services at this time. Pt states he wants to talk to his dad about this. SW informed pt that hospice had requested that hospice be contacted upon discharge and they would continue to meet with pt and family and discuss hospice option. Pt is agreeable to this plan. Pt plans to return home with he father at time of discharge. DHAVAL aJcobson
--- NOTE | 2022-07-23 11:22 | PCM.DC.SUM ---
Providers Date of Admission: 07/20/22 Date of Discharge: 07/24/22 Primary Care Physician: Dr. Bertin Feliz MD Consultations 07/21/22 15:58 Consult: Hospice / Palliative Care Routine Consulting Provider: [facility] Reason for Consult: esophageal cancer-plan to go home after hospitalization EMERGENT Consult: No Notified: Yes Date Notified: 07/21/22 Time Notified: 16:43 Method of Notification: Answering Service 07/21/22 16:09 Consult: Oncology/Hematology Routine Consulting Provider: [facility] Reason for Consult: esophageal ca EMERGENT Consult: No Notified: Yes Date Notified: 07/21/22 Time Notified: 16:09 Method of Notification: Verbal Reason For Visit: FEVER OF UNKNOWN ORIGIN, LEUDOPENIA Diagnosis Discharge Diagnosis (1) Fever: Status: Acute Code(s): R50.9 - Fever, unspecified (2) Stage IV malignant neoplasm of esophagus: Status: Acute Code(s): C15.9 - Malignant neoplasm of esophagus, unspecified Plan Patient is a 52-year-old gentleman with history of stage IV esophageal CA admitted with fever and neutropenia 1. Neutropenic fever ? Patient managed with broad-spectrum antibiotic therapy cultures sent 2. Suspected aspiration pneumonia ? Patient remains on broad-spectrum antibiotic therapy in addition to supplemental oxygen 3. Stage IV esophageal cancer esophageal obstruction ? Patient has a PEG tube ? Patient was discharged home with hospice 4. Severe chronic protein calorie malnutrition ? Patient has been evaluated by dietitian notes and recommendations reviewed 5. Essential hypertension ? Patient antihypertensives currently on hold 6. Coronary artery disease ? Per history 7. Neurofibromatosis ? Per history 8. Anemia - Secondary to chronic disorder monitoring H&H and transfuse if patient becomes symptomatic or hemoglobin falls below 7 9. DVT prophylaxis -bilateral SCDs only holding off with chemoprophylaxis given patient's severe anemia 10. Hypokalemia -Corrected per protocol Time spent in the patient's overall evaluation,decision-making process, review of diagnostic data, adjustment of management, discussion with other providers, nursing nursing and ancillary staff involved in patient's care documentation, 35 Minutes Medications at Discharge Home Medications amoxicillin 875 mg-potassium clavulanate 125 mg tablet 1 tab feeding tube BID #20 tabs 07/23/22 potassium chloride 20 mEq tablet,extended release(part/cryst) (Klor-Con M) 20 meq G-tube BIDCM 30 days #60 tabs 07/23/22 Hospital Course Summary of Care Provided Minutes Spent on Discharge: 35 Physical Exam Narrative GENERAL: In no apparent distress HEENT: Atraumatic; normocephalic EYES; Anicteric, Normal Conjunctiva NECK; supple, normal thyroid, RESPIRATORY: Diminished to auscultation CARDIOVASCULAR: Regular S1 S2, GI: soft, normoactive bowel sounds, : No Renal angle tenderness; EXTREMITIES: No edema, no clubbing, MUSCULOSKELETAL: no muscle wasting NEURO: Awake; no lateralizing signs. SKIN: No Rash PSYCH; Flat affect Medical Records Data Medical Nutrition Assessment Dietitian: Malnutrition Criteria Met Start: 07/21/22 10:44 Freq: Status: Active Protocol: Document 07/22/22 07:51 (Rec: 07/22/22 07:51 [id number]) Nutrition Malnutrition Evidence of Malnutrition Exists Yes Malnutrition (severe): Chronic Evidenced By Weight Loss (Severe),Physical Changes (Severe) Clinical Problem Chronic Disease or Condition Related Malnutrition Etiology severe, chronic malnutrition related to inadequate energy intake w/ increased energy needs d/t esophageal cancer Signs/Symptoms as evidenced by unintentional 51#/33% weight loss x 6 months ; Obvious severe muscle wasting/fat loss evident per physical exam in orbital, clavicle, acromion, and temporal areas; BMI 18.4 Status Active Problem Recommendation Dietitian Recommendations/Changes 1) via PEG- Pivot 1.5 at goal rate of 50mL/hour w/ 150mL H2O flush every 4 hours to provide 1800 calories, 112 g protein, and 1800mL total fluid/day. Started at 20mL/ hour and increased by 15mL/ hour every 8-12 hours as tolerated until goal rate is achieved. 2) NPO per [employer] OPERATOR; regular diet as medically indicated. Current enteral nutrition order meets 100% of estimated energy needs. 3) Daily wts. Weight / BMI Weight Weight: 47 kg Body Mass Index (BMI) 18.3 ABG / Lab / Microbiology Data Result Diagrams: 07/23/22 06:21 07/23/22 06:21 Laboratory: Laboratory Results - last 24 hr 07/20/22 13:00: Diff Path Review Reviewed 07/21/22 05:40: Diff Path Review Reviewed 07/22/22 02:00: Diff Path Review Reviewed 07/23/22 06:21: WBC 3.8 L, RBC 2.75 L, Hgb 7.6 L, Hct 24.0 L, MCV 87.3, MCH 27.6, MCHC 31.7 L, RDW Std Deviation 54.7 H, RDW Coeff of Inez 18.8 H, Plt Count 138 L, MPV 9.6, Immature Gran % (Auto) 1.600 H, Neut % (Auto) 62.3, Lymph % (Auto) 12.2 L, [place] % (Auto) 23.4 H, Eos % (Auto) 0.0, Baso % (Auto) 0.5, Absolute Neuts (auto) 2.3, Absolute Lymphs (auto) 0.46 L, Nucleated RBC % 0, Diff Path Review June, Platelet Estimate SLT DEC, Anisocytosis 2+ 07/23/22 06:21: Sodium 133 L, Potassium 2.8 L, Chloride 101, Carbon Dioxide 23.0, Anion Gap 9, BUN 8, Creatinine 0.58 L, Estim Creat Clear Calc 101.29, Est GFR (MDRD) Af Amer 192, Est GFR (MDRD) Non-Af 159, BUN/Creatinine Ratio 13.9, Glucose 134 H, Calcium 8.3 L, Phosphorus 2.1 L, Magnesium 1.7 Microbiology: Microbiology 07/20/22 13:50 Blood Culture (Wb) - Arm Left Blood Culture - Preliminary No growth in 48 hours. 07/20/22 13:00 Blood Culture (Wb) - Port Blood Culture - Preliminary No growth in 48 hours. 07/20/22 15:44 Urine, Clean Catch Urine Culture - Final Culture exhibits no growth. D/C Instructions Discharge Diet: - (Via PEG tube) Discharge Activity: Return to Normal Activity Call your doctor if you observe: Fever of 101 or Higher, Shortness of breath, Fainting spells and Chest pain Meaningful Use Info Meaningful Use Diagnoses (Choose all that apply): None applicable Discharge Plan Admission Admit Date/Time: 07/20/22 15:17 Attending Provider: Renan Sharp Primary Care Provider: Bertin Feliz Consulting Providers: Jose Stack ; Regina Sandoval ; Grant Alston ; Mark Still ; Anand Eastman ; Renan Gary ; Deanne Valdovinos ; Luci Yusuf ; Helen Lu SENIOR INTEGRATION DEVELOPER ; Isidro Swan Discharge Orders/Prescriptions Prescriptions: New potassium chloride [Klor-Con M20] 20 mEq Tablet,Er Particles/Crystals 20 meq G-tube BIDCM 30 Days Qty: 60 0RF amoxicillin-pot clavulanate 875-125 mg tablet 1 tab feeding tube BID Qty: 20 0RF Discontinued atorvastatin 40 mg tablet 40 mg PO QHS amlodipine 2.5 mg Tablet 2.5 mg PO DAILY Referrals / Follow Up: Bertin Feliz MD [Primary Care Provider] - Within 1 Week Disposition Disposition (needs filled in before D/C Order can be placed): Hospice in Home Charges/Coding Visit Charges Inpatient E&M: 33247 Disch Hosp >30min
[2022-07-23 11:42] LABS: Vancomycin, Trough Level 10.4 ug/mL (5.0-15.0)
[2022-07-23] MEDS: 0.9% Saline Lock 10 ML Syringe IV (13:33)
[2022-07-23 13:44] VITALS: BP 108/74; PULSE 88; RESP 18; TEMP 37.2; O2SAT 98
--- NOTE | 2022-07-23 14:04 | CASEMGMT ---
Social Work SW updated [facility] at [facility] of pt discharge home today. Discharge orders faxed to [facility]. DHAVAL Jacobson
[2022-07-24 09:31] LABS: Pathologist Review Reviewed
== END 2022-07-23 13:47 | disposition hospice, home (50) | DRG 808 ==
LOC: ED 14:19 → MS3 15:33
PROVIDERS: Family Medicine; Internal Medicine Hematology & Oncology; Admitting Provider Internal Medicine; Emergency Provider Emergency Medicine; PCP Internal Medicine; Visit Provider Internal Medicine
DX: D70.1 Agranulocytosis secondary to cancer chemotherapy (principal); J69.0 Pneumonitis due to inhalation of food and vomit; E43 Unspecified severe protein-calorie malnutrition; C77.2 Secondary and unspecified malignant neoplasm of intra-abdominal lymph nodes; C79.71 Secondary malignant neoplasm of right adrenal gland; C15.9 Malignant neoplasm of esophagus, unspecified; C78.7 Secondary malignant neoplasm of liver and intrahepatic bile duct; Z68.1 Body mass index [BMI] 19.9 or less, adult; K22.2 Esophageal obstruction; Q85.00 Neurofibromatosis, unspecified; Z93.1 Gastrostomy status; D63.8 Anemia in other chronic diseases classified elsewhere; E78.5 Hyperlipidemia, unspecified; F17.221 Nicotine dependence, chewing tobacco, in remission; I10 Essential (primary) hypertension; I25.10 Atherosclerotic heart disease of native coronary artery without angina pectoris; E87.6 Hypokalemia; D64.81 Anemia due to antineoplastic chemotherapy; R50.81 Fever presenting with conditions classified elsewhere; R13.10 Dysphagia, unspecified; Z66 Do not resuscitate; Z79.899 Other long term (current) drug therapy; Z95.1 Presence of aortocoronary bypass graft
CPT/HCPCS: 36415; 36591; 71045; 71046; 71260; 74177; 74230; 80048; 80053; 80202; 81001; 82728; 83540; 83550; 83605; 83735; 84100; 85014; 85018; 85025; 85045; 85610; 85730; 87040; 87086; 92526; 92610; 92611; 93005; 97802; 97803; 99285; J7030; J7050; Q9967; A4216; J1447